=== PATIENT | male | born 1955 | race Caucasian/White ===

== ENCOUNTER 2021-05-22 11:01 | Outpatient (REF) | payer BC, SELFPAY ==
[2021-05-22 14:09] LABS: Appearance Urine CLEAR; Color Urine YELLOW; Glucose Urine UA NEG (NEG); Leukocyte Esterase Urine NEG (NEG); Nitrite Urine NEG (NEG); UACC Culture Trigger NO; Urine Blood TRACE (NEG); Urine Ketones NEG (NEG); Urine Protein NEG (NEG-TRACE)
[2021-05-22 14:26] LABS: Alanine Aminotransferase 17 U/L (0-40); Albumin Level 4.4 g/dL (3.5-5.0); Alkaline Phosphatase 50 U/L (39-117); Anion Gap 16 (12-20); Aspartate Amino Transferase 23 U/L (5-37); Bilirubin Total 0.9 mg/dL (0.0-1.0); Blood Urea Nitrogen 14 mg/dL (9-16); Calcium 9.5 mg/dL (8.4-10.2); Carbon Dioxide 23 mmol/L (22-29); Chloride 105 mmol/L (96-108); Cholesterol 229 mg/dL; Estimated Glomerular Filt Rate > 60; Glucose Fasting 103 mg/dL (60-99); HDL Cholesterol 49 mg/dL; LDL Cholesterol Calculated 161 mg/dl; Potassium 5.1 mmol/L (3.3-5.1); Sodium 139 mmol/L (135-145); Total Protein 6.9 g/dL (6.5-8.0); Triglycerides 96 mg/dL
[2021-05-22 14:27] LABS: RBC Urine 0-2 /HPF (0); WBC Urine 0 /HPF (0-4)
[2021-05-22 14:42] LABS: TSH reflex Free T4 2.73 uIU/mL (0.32-4.0)
[2021-05-22 15:13] LABS: Prostate Specific Antigen Scr 1.25 ng/mL (<0.05-4.0)
== END 2021-05-22 11:02 | disposition home or self-care (01) ==
LOC: HO.HMGCLDS 11:01
PROVIDERS: PCP Nurse Practitioner Family; Visit Provider Nurse Practitioner Family
DX: Z00.00 Encounter for general adult medical examination without abnormal findings (principal); Z12.5 Encounter for screening for malignant neoplasm of prostate
CPT/HCPCS: 36415; 80053; 80061; 81001; 81003; 84153; 84443

== ENCOUNTER 2021-05-24 10:57 | Outpatient (REF) | payer BC, SELFPAY ==
[2021-05-24 14:02] LABS: Urine Cytology See Pathology rpt
[2021-05-24 14:13] LABS: Appearance Urine CLEAR; Color Urine STRAW; Glucose Urine UA NEG (NEG); Leukocyte Esterase Urine NEG (NEG); Nitrite Urine NEG (NEG); Specific Gravity - Urine <= 1.005 (1.005-1.025); Urine Blood NEG (NEG); Urine Ketones NEG (NEG); Urine Protein NEG (NEG-TRACE)
[2021-05-24 14:23] LABS: RBC Urine 0-2 /HPF (0); WBC Urine 0 /HPF (0-4)
[2021-05-24 14:24] LABS: Squamous Epithelial Cell Urine TRACE /LPF
== END 2021-05-24 10:58 | disposition home or self-care (01) ==
LOC: HO.HMGCLDS 10:57
PROVIDERS: PCP Nurse Practitioner Family; Visit Provider Nurse Practitioner Family
DX: Z00.00 Encounter for general adult medical examination without abnormal findings (principal); R31.29 Other microscopic hematuria
CPT/HCPCS: 81003; 87086; 88112

== ENCOUNTER 2021-10-14 10:21 | Day surgery (SDC) | payer BC, SELFPAY ==
[2021-09-17 13:30] VITALS: BMI 23.3
--- NOTE | 2021-10-11 10:41 | P.CONAN_ITS ---
Documented by User: Batool Velazquez NP 10/11/21 10:42 HPI - Anesthesia Eval Consult details Narrative: 65yo M for Colonoscopy [facility] Active Problems Active Problems: All Active Problems (Updated 05/22/21 @ 18:07 by Jeremie Ivey [facility]) Screening for colon cancer (Acute) Skin abnormalities (Acute) Physical exam (Acute) Screening PSA (prostate specific antigen) (Acute) Microscopic hematuria (Acute) Dyslipidemia (Acute) Past Medical History Medical History (Updated 05/22/21 @ 18:07 by Jeremie Ivey [facility]) Anxiety Surgical History Surgical History (Updated 09/16/21 @ 15:42 by Teri Wright RN) H/O arthroscopic knee surgery H/O colonoscopy H/O left inguinal hernia repair Social History Social History Housing: House Patient Tobacco Use Status: Never used Tobacco Second Hand Smoke Exposure: No Use of substances other than those prescribed or required for medical reasons: No Advance Directives: No Advance Directives Information Provided: Yes Advance Directives on File: No service: No Current occupational status: employed Current occupation: [employer] Current occupational exposures/hazards: No Meds Allergies Allergy/AdvReac Type Severity Reaction Status Date / Time penicillin V Allergy Intermediate Rash Verified 09/16/21 14:12 erythromycin base Allergy Unknown Unknown Verified 09/17/21 13:29 Home Medications Medication Instructions Recorded Confirmed Last Taken Type No Known Home Meds 05/22/21 09/17/21 Unknown History Exam Exam Date and Time: October 11, 2021 1041 Height,Weight and Vital Signs: Height 5 ft 11 in Weight 75.75 kg Pertinent Lab Results Pertinent Lab Results: Laboratory Tests 05/22/21 11:01 Sodium 139 Potassium 5.1 Chloride 105 Carbon Dioxide 23 BUN 14 Creatinine 0.96 Assessment and Plan Assessment Anesthesia Assessment: Chart Reviewed Documented by User: Shira Del Cid MD 10/14/21 11:12 [facility] Past Medical History Medical History (Updated 05/22/21 @ 18:07 by Jeremie Ivey [facility]) Anxiety Family History Family history of problems with anesthesia: No Surgical History Surgical History (Updated 09/16/21 @ 15:42 by Teri Wright RN) H/O arthroscopic knee surgery H/O colonoscopy H/O left inguinal hernia repair History of Problems with Anesthesia: No Social History Social History Housing: House Patient Tobacco Use Status: Never used Tobacco Second Hand Smoke Exposure: No Use of substances other than those prescribed or required for medical reasons: No Advance Directives: No Advance Directives Information Provided: Yes Advance Directives on File: No service: No Current occupational status: employed Current occupation: [employer] Current occupational exposures/hazards: No Meds Allergies Allergy/AdvReac Type Severity Reaction Status Date / Time penicillin V Allergy Intermediate Rash Verified 09/16/21 14:12 erythromycin base Allergy Unknown Unknown Verified 09/17/21 13:29 Home Medications Medication Instructions Recorded Confirmed Last Taken Type No Known Home Meds 05/22/21 09/17/21 Unknown History Exam Airway Mallampati Class: II (Multiple caps laterals) TM Dist: >3cm Neck ROM: Full Heart: rrr Lungs: cta Assessment and Plan Assessment Anesthesia Assessment: Anesthesia Plan Discussed and Chart Reviewed Final Anesthetic Review Family History of Problems with Anesthesia: No History of Problems with Anesthesia: No NPO: Yes ASA Class: II Final Preanesthetic Review: No Changes in Pt Med Stat, Meds/Allgs Chart Reviewed and Consent Obtained/Reviewed Patient Risk: Intermediate Procedure Risk: Intermediate Anesthetic Plan Anesthetic Plan: MAC: Disposition: Standard PACU
[2021-10-14 11:09] VITALS: BP 146/84; PULSE 78; RESP 16; TEMP 36.4; O2SAT 100
[2021-10-14] MEDS: Lactated Ringers 1,000 ML 100 ML IVCONT (11:22)
--- NOTE | 2021-10-14 13:01 | PM.OP ---
Brief Operative Note Date of Service: 10/14/21 Pre-op diagnosis: Screening Post-op diagnosis: other (Colon polyps) Procedure: Colonoscopy to the cecum and TI with bx/removal of polyps Surgeon: Dany Trejo Anesthesia: MAC Was an Audio Visual Specialist used for this Procedure?: No Estimated blood loss (mL): 2.0 Pathology: other (A, Polyp at 30cm B. Polyp at 20cm) Condition: stable Disposition: PACU
[2021-10-14 13:04] VITALS: BP 98/49; PULSE 61; RESP 16; TEMP 36.2; O2SAT 99
[2021-10-14 13:20] VITALS: BP 110/67; PULSE 50; RESP 18; TEMP 36.2; O2SAT 100
--- NOTE | 2021-10-14 22:34 | OP_ITS ---
SURGEON: Dany Trejo MD INDICATIONS: The patient presents for evaluation of personal history of tubular adenomas of the colon and family history of colon cancer, colorectal cancer screening. Full consent has been obtained from him for this, including risks of bleeding and perforation. PREOPERATIVE DIAGNOSIS: POSTOPERATIVE DIAGNOSIS: PROCEDURE PERFORMED: Colonoscopy to cecum and terminal ileum with biopsy and removal of polyps. ESTIMATED BLOOD LOSS: COMPLICATIONS: ANESTHESIA: Preoperative medication used, monitored anesthesia care. ASSISTANTS: SPECIMENS: PREOPERATIVE DIAGNOSES: Personal history of tubular adenomas of the colon, colorectal cancer screening, family history of colon cancer. POSTOPERATIVE DIAGNOSES: Personal history of tubular adenomas of the colon, colorectal cancer screening, family history of colon cancer, small colon polyps, diverticulosis, and internal hemorrhoids. DESCRIPTION OF PROCEDURE: The patient was placed in the left lateral decubitus position. The digital rectal exam revealed no abnormalities. The [employer] video pediatric colonoscope was entered into the rectum and advanced easily to the cecum. Once in the cecum, I did identify normal-appearing cecal pouch with appendiceal orifice and a normal-appearing ileocecal valve. The terminal ileum was cannulated and appeared normal. The scope was withdrawn back in the colon. The entire cecum and ileocecal valve appeared normal. The scope was slowly withdrawn assessing all mucosal surfaces carefully. Preparation was excellent. At 20 cm and at 30 cm were flat approximately 3 or 4 mm polyps, which were each biopsied and completely removed with cold biopsy forceps. I did not visualize any other polyps, colitis, or angiodysplasia. There was a mild amount of sigmoid diverticulosis. In the rectum, the scope was retroflexed visualizing small internal hemorrhoids, but no other pathology. The rectal mucosa appeared normal. The scope was straightened and withdrawn from the patient. He tolerated the procedure well and was returned to the recovery area in stable condition. IMPRESSION: 1. Small colon polyps, status post biopsy removal. 2. Diverticulosis. 3. Internal hemorrhoids. PLAN: The results of biopsies will be checked. I would recommend a repeat colonoscopy in 5 years for further screening purposes. MD CESAR Thomason/DONNY / [id number]
== END 2021-10-14 14:00 | disposition home or self-care (01) ==
PROVIDERS: PCP Nurse Practitioner Family; Visit Provider Internal Medicine
PROC: 0DJD8ZZ Inspection of Lower Intestinal Tract, Via Natural or Artificial Opening Endoscopic (ICD-10-PCS; CPT 45378; principal; 2021-10-14 11:30)
DX: Z12.11 Encounter for screening for malignant neoplasm of colon (principal); Z86.010 Personal history of colon polyps; Z80.0 Family history of malignant neoplasm of digestive organs; K63.5 Polyp of colon; K57.30 Diverticulosis of large intestine without perforation or abscess without bleeding; K64.8 Other hemorrhoids
CPT/HCPCS: 45380; 88305

== ENCOUNTER 2021-11-18 13:44 | Outpatient (REF) | payer BC, SELFPAY ==
[2021-11-18 16:27] LABS: Urine Cytology See Pathology rpt
[2021-11-18 16:30] LABS: Appearance Urine CLEAR; Color Urine YELLOW; Glucose Urine UA NEG (NEG); Leukocyte Esterase Urine NEG (NEG); Nitrite Urine NEG (NEG); Specific Gravity - Urine <= 1.005 (1.005-1.025); Urine Blood TRACE (NEG); Urine Ketones NEG (NEG); Urine Protein NEG (NEG-TRACE)
[2021-11-18 16:36] LABS: Bacteria Urine TRACE /LPF; RBC Urine 0-2 /HPF (0); Squamous Epithelial Cell Urine TRACE /LPF; WBC Urine 0 /HPF (0-4)
[2021-11-18 16:51] LABS: Cholesterol 211 mg/dL; HDL Cholesterol 42 mg/dL; LDL Cholesterol Calculated 149 mg/dl; Triglycerides 101 mg/dL
== END 2021-11-18 13:45 | disposition home or self-care (01) ==
LOC: HO.HMGCLDS 13:44
PROVIDERS: PCP Nurse Practitioner Family; Visit Provider Nurse Practitioner Family
DX: E78.5 Hyperlipidemia, unspecified (principal)
CPT/HCPCS: 36415; 80061; 81001; 88112

== ENCOUNTER 2023-02-23 09:01 | Outpatient (REF) | payer BC, SELFPAY ==
[2023-02-23 12:18] LABS: Anion Gap 13 (12-20); Blood Urea Nitrogen 11 mg/dL (9-16); Calcium 9.4 mg/dL (8.4-10.2); Carbon Dioxide 27 mmol/L (22-29); Chloride 103 mmol/L (96-108); Estimated Glomerular Filt Rate > 60; Glucose Random 97 mg/dL (60-115); Potassium 3.7 mmol/L (3.3-5.1); Sodium 139 mmol/L (135-145)
== END 2023-02-23 09:02 | disposition home or self-care (01) ==
LOC: HO.HMGCLDS 09:01
PROVIDERS: PCP Nurse Practitioner Family; Visit Provider Orthopaedic Surgery
DX: Z01.818 Encounter for other preprocedural examination (principal)
CPT/HCPCS: 36415; 80048

== ENCOUNTER 2023-05-20 10:17 | Outpatient (AMB) | payer MEDICARE, SELFPAY ==
--- NOTE | 2023-05-20 10:28 | MHC.PC.OV ---
Vital Signs 05/20/23 10:29 Height 5 ft 11 in Weight 166 lb 2 oz BMI 23.2 BP 122/74 Blood Pressure Location Rt brachial Position Sitting Pulse 75 Pulse Source Pulse Oximeter Pulse Oximetry (%) 94 Oxygen Delivery Method Room Air Intake Visit Reasons: Lymphoma Allergies penicillin V Allergy (Intermediate, Verified 05/20/23 12:23) Rash erythromycin base Allergy (Unknown, Verified 05/20/23 12:23) Unknown Medication List - Last Reconciled 05/20/23 by ELIAS Dykes acalabrutinib 100 mg PO Q12H venetoclax 400 mg PO DAILY Tobacco use date assessed: 05/20/23 Fall risk assessment: No Falls in past year Last assessed Fall Risk: 05/20/23 Dental Screening Dental Screen Date: 05/20/23 Did you have a dental visit in the last 12 months?: Yes Did you have a dental problem in the last 6 months where you did not have access to dental care?: No Was dental information given to patient?: Patient has dentist HPI Lymphoma HPI Details Pt's fasting blood sugar was elevated. Will order labs. Denies polyuria, polydipsia, and neuropathy. Dyslipidemia: Will order labs. Pt is following up with [facility] due to lymphoma, diagnosed in July 2022. He reports doing well overall. [facility] Medical History Anxiety Surgical History H/O arthroscopic knee surgery H/O colonoscopy H/O left inguinal hernia repair History of total right hip arthroplasty Social History Housing: House Patient Tobacco Use Status: Never used Tobacco e-Cigarette/Vaping Use: Never Used Second Hand Smoke Exposure: No service: No Current occupational status: employed Current occupation: [employer] Current occupational exposures/hazards: No Cognitive needs: No Hearing needs: No Vision needs: No Questionnaire Thrive Questionnaire Date Thrive assessed: 11/20/21 AUDIT C Alcohol Use Questionnaire (AUDIT-C) 1. How often do you have a drink containing alcohol?: Monthly or less 2. How many drinks containing alcohol do you have on a typical day when you are drinking?: 1 or 2 3. How often do you have six or more drinks on one occasion?: Never Total Score: 1 RUEL-7 AMB Questionnaire RUEL-7 Date RUEL - 7 assessed: 11/20/21 Feeling nervous, anxious, or on edge: 0 = Not at all Worrying too much about different things: 0 = Not at all Trouble relaxin = Not at all Being so restless that it is hard to sit still: 0 = Not at all Becoming easily annoyed or irritable: 0 = Not at all Feeling afraid as if something awful might happen: 0 = Not at all Source: Developed by Drs. Dany Mayberry, Bhavna Rowe, Syed Hagen and colleagues, with an educational genna from [employer]. Review of Systems Const Reports as per HPI Physical exam (Primary Care) Vital Signs: Last Vital Signs Pulse 75 05/20/23 10:29 BP 122/74 05/20/23 10:29 Pulse Ox 94 05/20/23 10:29 Oxygen Delivery Method Room Air 05/20/23 10:29 BMI result Body Mass Index 23.2 Tobacco/Smoking Status: Tobacco use Status Tobacco use date assessed 05/20/23 05/20/23 10:32 Patient Tobacco Use Status Never used Tobacco 05/20/23 10:32 e-Cigarette/Vaping Use Never Used 05/20/23 10:32 Thrive Assessment: Date of Thrive Assessment Date Thrive assessed 11/20/21 05/20/23 10:32 Const General: cooperative Orientation/consciousness: patient oriented x3 Resp Effort & Inspection: normal respiratory effort Auscultation: clear to auscultation bilaterally Cardio Rate: regular rate Rhythm: regular rhythm Heart sounds: S1 normal heart sound present and S2 normal heart sound present Neuro General: patient oriented x3 Psych Appearance: grossly normal Mental Status: mental status grossly normal Speech and movement: Normal speech and movement present Affect: normal affect Attitude: cooperative Thought process: Normal thought process present Thought content: Normal thought content present Insight: Good insight present (Psych) Judgement: Good judgement present (Psych) Assessment and Plan Assessment & Plan (1) Screening PSA (prostate specific antigen): Code(s): Z12.5 - Encounter for screening for malignant neoplasm of prostate Plan: PSA ordered (2) Elevated fasting blood sugar: Code(s): R73.01 - Impaired fasting glucose Plan: Labs ordered (3) Lymphoma: Code(s): C85.90 - Non-Hodgkin lymphoma, unspecified, unspecified site Plan: Following up with [facility] (4) Dyslipidemia: Code(s): E78.5 - Hyperlipidemia, unspecified Plan: Labs ordered Plan The patient agreed to the use of a medical record coder for this encounter. Scribed for Jeremie Ivey LOFTSMAN/WOMAN- by Yaquelin Blanchard medical record coder, on 05/20/2023 at 10:55 EST. Orders: Orders Prostate Specific Antigen Scr Today Z12.5 - Encounter for screening for malignant neoplasm of prostate Hemoglobin A1c Today R73.01 - Impaired fasting glucose Comprehensive Met. Panel Today C85.90 - Non-Hodgkin lymphoma, unspecified, unspecified site Complete Blood Count Auto Diff Today C85.90 - Non-Hodgkin lymphoma, unspecified, unspecified site Lipid Panel Today E78.5 - Hyperlipidemia, unspecified Coding Level of Care Code Est Pt Level 3 (57001) Diagnoses Screening PSA (prostate specific antigen) Z12.5 Elevated fasting blood sugar R73.01 Lymphoma C85.90 Dyslipidemia E78.5
[2023-05-20 10:29] VITALS: BP 122/74; PULSE 75; O2SAT 94; BMI 23.2
== END 2023-05-20 14:15 | disposition home or self-care (01) ==
PROVIDERS: PCP Nurse Practitioner Family; Visit Provider Nurse Practitioner Family
DX: Z12.5 Encounter for screening for malignant neoplasm of prostate (principal); R73.01 Impaired fasting glucose; C85.90 Non-Hodgkin lymphoma, unspecified, unspecified site; E78.5 Hyperlipidemia, unspecified
CPT/HCPCS: 99213

== ENCOUNTER 2023-05-20 11:16 | Outpatient (REF) | payer MEDICARE, SELFPAY ==
[2023-05-20 13:17] LABS: MANUAL DIFF FLAG NO
[2023-05-20 13:31] LABS: Basophils Percent Auto 0.2 % (0-2); Hemoglobin 14.3 g/dl (14.0-18.0); Lymphocytes Absolute Auto 1.1 X10*3/uL (1.2-4.9); Lymphocytes Percent Auto 26.2 % (20-40); Mean Corpuscular HGB Conc 33.3 g/dl (31.0-36.0); Mean Corpuscular Hemoglobin 31.6 pg (27.0-33.0); Mean Corpuscular Volume 95.1 fL (80.0-98.0); Mean Platelet Volume 11.1 fL (9.4-12.4); Monocytes Absolute Auto 0.5 X10*3/uL (0.1-1.2); Monocytes Percent Auto 12.7 % (2-11); Neutrophils Absolute Auto 2.5 x10*3/uL (2.0-8.3); Neutrophils Percent Auto 60.9 % (45-73); Platelet Count 197 X10*3/uL (160-400); Red Blood Count 4.52 X10*6/uL (4.60-5.80); Red Cell Distribution Width 12.3 % (11.0-16.0); White Blood Count 4.2 X10*3/uL (4.8-10.8)
[2023-05-20 13:33] LABS: Estimated Average Glucose 82 mg/dL; Hemoglobin A1c % 4.5 % (<6.0)
[2023-05-20 13:50] LABS: Alanine Aminotransferase 10 U/L (0-40); Albumin Level 4.3 g/dL (3.5-5.0); Alkaline Phosphatase 98 U/L (39-117); Anion Gap 12 (12-20); Aspartate Amino Transferase 21 U/L (5-37); Bilirubin Total 0.8 mg/dL (0.0-1.0); Blood Urea Nitrogen 16 mg/dL (9-16); Calcium 9.4 mg/dL (8.4-10.2); Carbon Dioxide 26 mmol/L (22-29); Chloride 107 mmol/L (96-108); Cholesterol 209 mg/dL (<200); Estimated Glomerular Filt Rate > 60; Glucose Random 101 mg/dL (60-115); HDL Cholesterol 54 mg/dL (>40); LDL Cholesterol Calculated 142 mg/dL (<100); Potassium 4.2 mmol/L (3.3-5.1); Sodium 141 mmol/L (135-145); Total Protein 6.9 g/dL (6.5-8.0); Triglycerides 65 mg/dL (<150)
[2023-05-20 14:02] LABS: Prostate Specific Antigen Scr 1.32 ng/mL (<0.05-4.0)
== END 2023-05-20 11:17 | disposition home or self-care (01) ==
LOC: HO.HMGCLDS 11:16
PROVIDERS: PCP Nurse Practitioner Family; Visit Provider Nurse Practitioner Family
DX: Z12.5 Encounter for screening for malignant neoplasm of prostate (principal); R73.01 Impaired fasting glucose; C85.90 Non-Hodgkin lymphoma, unspecified, unspecified site; E78.5 Hyperlipidemia, unspecified
CPT/HCPCS: 36415; 80053; 80061; 83036; 84153; 85025

== ENCOUNTER 2023-09-21 09:39 | Outpatient (AMB) | payer MEDICARE, SELFPAY ==
--- NOTE | 2023-09-21 09:48 | MHC.PC.OV ---
Vital Signs 09/21/23 09:50 Height 5 ft 11 in Weight 164 lb BMI 22.9 BP 130/82 Blood Pressure Location Lt brachial Position Sitting Pulse 59 Pulse Source Pulse Oximeter Pulse Oximetry (%) 99 Oxygen Delivery Method Room Air Intake Visit Reasons: 4 Month follow up Intake Note: Patient here for cholesterol follow up. Allergies penicillin V Allergy (Intermediate, Verified 09/21/23 09:51) Rash erythromycin base Allergy (Unknown, Verified 09/21/23 09:51) Unknown Medication List - Last Reconciled 09/21/23 by ELIAS Dykes acalabrutinib 100 mg PO Q12H venetoclax 400 mg PO DAILY Tobacco use date assessed: 09/21/23 Fall risk assessment: No Falls in past year Last assessed Fall Risk: 09/21/23 Dental Screening Dental Screen Date: 09/21/23 Did you have a dental visit in the last 12 months?: Yes Did you have a dental problem in the last 6 months where you did not have access to dental care?: No Was dental information given to patient?: Patient has dentist HPI 4 Month follow up HPI Details Pt reports noticing a lump near his left nipple approximately 1 month ago. He reports tenderness to the area as well. Will order US. Hx of SLL. Pt reports that he plans to see his oncologist in 2 days. Denies any fevers, chills, N/V, drainage. [facility] Medical History (Updated 09/21/23 @ 10:14 by ELIAS Dykes) Small lymphocytic lymphoma Anxiety Surgical History History of total right hip arthroplasty H/O colonoscopy H/O arthroscopic knee surgery H/O left inguinal hernia repair Social History Housing: House Patient Tobacco Use Status: Never used Tobacco e-Cigarette/Vaping Use: Never Used Second Hand Smoke Exposure: No service: No Current occupational status: employed Current occupation: [employer] Current occupational exposures/hazards: No Cognitive needs: No Hearing needs: No Vision needs: No Questionnaire Thrive Questionnaire Date Thrive assessed: 11/20/21 AUDIT C Alcohol Use Questionnaire (AUDIT-C) 1. How often do you have a drink containing alcohol?: 2-4 times a month 2. How many drinks containing alcohol do you have on a typical day when you are drinking?: 1 or 2 3. How often do you have six or more drinks on one occasion?: Never Total Score: 2 Score Reviewed/Action Taken: No RUEL-7 AMB Questionnaire RUEL-7 Date RUEL - 7 assessed: 11/20/21 Feeling nervous, anxious, or on edge: 0 = Not at all Not being able to stop or control worryin = Not at all Worrying too much about different things: 0 = Not at all Trouble relaxin = Not at all Being so restless that it is hard to sit still: 0 = Not at all Becoming easily annoyed or irritable: 0 = Not at all Feeling afraid as if something awful might happen: 0 = Not at all Total RUEL-7 score (0-4 normal; 5-9 mild; 10-14 moderate; 15-21 severe): 0 Source: Developed by Drs. Dany Mayberry, Bhavna Rowe, Syed Hagen and colleagues, with an educational genna from [employer]. Review of Systems Const Reports as per HPI Physical exam (Primary Care) Vital Signs: Last Vital Signs Pulse 59 09/21/23 09:50 BP 130/82 09/21/23 09:50 Pulse Ox 99 09/21/23 09:50 Oxygen Delivery Method Room Air 09/21/23 09:50 BMI result Body Mass Index 22.9 Tobacco/Smoking Status: Tobacco use Status Tobacco use date assessed 09/21/23 09/21/23 09:53 Patient Tobacco Use Status Never used Tobacco 09/21/23 09:53 e-Cigarette/Vaping Use Never Used 09/21/23 09:53 Thrive Assessment: Date of Thrive Assessment Date Thrive assessed 11/20/21 09/21/23 09:53 Const General: cooperative Orientation/consciousness: patient oriented x3 Resp Effort & Inspection: normal respiratory effort Auscultation: clear to auscultation bilaterally Cardio Rate: regular rate Rhythm: regular rhythm Heart sounds: S1 normal heart sound present and S2 normal heart sound present Neuro General: patient oriented x3 Extrem Other: retroareolar ? node, palpable, tender with touch, slightly movable. Psych Appearance: grossly normal Mental Status: mental status grossly normal Speech and movement: Normal speech and movement present Affect: normal affect Attitude: cooperative Thought process: Normal thought process present Thought content: Normal thought content present Insight: Good insight present (Psych) Judgement: Good judgement present (Psych) Assessment and Plan Assessment & Plan (1) Palpable lymph node: Code(s): R59.9 - Enlarged lymph nodes, unspecified Plan: US ordered (2) Lymphoma: Code(s): C85.90 - Non-Hodgkin lymphoma, unspecified, unspecified site Plan: Labs ordered (3) Vitamin D deficiency: Code(s): E55.9 - Vitamin D deficiency, unspecified Plan: Labs ordered Plan The patient agreed to the use of a auditor medical claims for this encounter. Scribed for Jeremie Ivey, [employer]IST-BC by Yaquelin Blanchard auditor medical claims, on 09/21/2023 at 10:05 EST. Orders: Orders US breast LT limited Today R59.9 - Enlarged lymph nodes, unspecified Complete Blood Count Auto Diff Today C85.90 - Non-Hodgkin lymphoma, unspecified, unspecified site, R59.9 - Enlarged lymph nodes, unspecified Comprehensive Met. Panel Today C85.90 - Non-Hodgkin lymphoma, unspecified, unspecified site, R59.9 - Enlarged lymph nodes, unspecified Magnesium Today C85.90 - Non-Hodgkin lymphoma, unspecified, unspecified site, R59.9 - Enlarged lymph nodes, unspecified TSH reflex Free T4 Today C85.90 - Non-Hodgkin lymphoma, unspecified, unspecified site, R59.9 - Enlarged lymph nodes, unspecified Vitamin D 25-OH Total Today E55.9 - Vitamin D deficiency, unspecified UA CC w/rflx Micro + Cult Today C85.90 - Non-Hodgkin lymphoma, unspecified, unspecified site, R59.9 - Enlarged lymph nodes, unspecified Coding Level of Care Code Est Pt Level 3 (12927) Diagnoses Palpable lymph node R59.9 Lymphoma C85.90 Vitamin D deficiency E55.9
[2023-09-21 09:50] VITALS: BP 130/82; PULSE 59; O2SAT 99; BMI 22.9
== END 2023-09-21 11:14 | disposition home or self-care (01) ==
PROVIDERS: PCP Nurse Practitioner Family; Visit Provider Nurse Practitioner Family
DX: R59.9 Enlarged lymph nodes, unspecified (principal); C85.90 Non-Hodgkin lymphoma, unspecified, unspecified site; E55.9 Vitamin D deficiency, unspecified
CPT/HCPCS: 99213

== ENCOUNTER 2023-09-21 10:28 | Outpatient (REF) | payer MEDICARE, SELFPAY | END 2023-09-21 10:29 | disposition home or self-care (01) | LOC: HO.HMGCLDS 10:28 | PROVIDERS: PCP Nurse Practitioner Family; Visit Provider Nurse Practitioner Family | DX: R59.9 Enlarged lymph nodes, unspecified (principal); C85.90 Non-Hodgkin lymphoma, unspecified, unspecified site; E55.9 Vitamin D deficiency, unspecified | CPT/HCPCS: 36415; 80053; 81003; 82306; 83735; 84443; 85025 ==

== ENCOUNTER 2023-10-09 09:17 | Outpatient (REF) | payer MEDICARE, SELFPAY ==
--- NOTE | ~2023-10-09 | US_ITS ---
EXAMINATION: US DIAGNOSTIC ULTRASOUND BREAST, LEFT CLINICAL INFORMATION: Retroareolar left breast palpable abnormality x2 months. No injury.. COMPARISON: None available. TECHNIQUE: Ultrasound of the left breast is performed with real-time nix scale imaging and color Doppler. FINDINGS: There is moderate normal breast tissue development in the retroareolar region, consistent with male gynecomastia. There is no solid mass, architectural abnormality, duct ectasia, or edema in the soft tissue planes. There is no cystic abnormality. Findings are benign. Results are discussed with the patient at time of visit. US/US breast LT limited mamm only IMPRESSION: Benign male gynecomastia left breast. No suspicious findings. Recommend clinical management. ASSESSMENT: BI-RADS 2 - Benign Findings RECOMMENDATION: Clinical management. This patient's information was entered into a reminder system with a target due date for their next mammogram.
== END 2023-10-09 09:18 | disposition home or self-care (01) ==
LOC: HO.MAMMO 09:17
PROVIDERS: PCP Nurse Practitioner Family; Visit Provider Nurse Practitioner Family
DX: R59.9 Enlarged lymph nodes, unspecified (principal)
CPT/HCPCS: 76642

== ENCOUNTER → 2023-10-09 09:30 | Outpatient (BNV) | payer MEDICARE, SELFPAY | PROVIDERS: PCP Nurse Practitioner Family; Visit Provider Radiology Diagnostic Radiology | DX: N62 Hypertrophy of breast (principal) | CPT/HCPCS: 76642 ==

== ENCOUNTER 2023-12-28 09:56 | Outpatient (AMB) | payer MEDICARE, SELFPAY ==
--- NOTE | 2023-12-28 09:59 | A.OFFPC_ITS ---
Vital Signs 12/28/23 10:02 Height 5 ft 11 in Weight 166 lb BMI 23.1 BP 126/78 Blood Pressure Location Rt brachial Position Sitting Pulse 58 Pulse Source Pulse Oximeter Pulse Oximetry (%) 98 Oxygen Delivery Method Room Air Intake Visit Reasons: 3 month follow up Intake Note: Patient here for follow up. Allergies penicillin V Allergy (Intermediate, Verified 12/28/23 11:14) Rash erythromycin base Allergy (Unknown, Verified 12/28/23 11:14) Unknown Medication List - Last Reconciled 12/28/23 by SARAH Dykes-ANNE acalabrutinib 100 mg PO Q12H venetoclax 400 mg PO DAILY Tobacco use date assessed: 09/21/23 Fall risk assessment: No Falls in past year Last assessed Fall Risk: 12/28/23 Dental Screening Dental Screen Date: 09/21/23 HPI 3 month follow up HPI Details Pt has a hx of small lymphocytic lymphoma. He is following up with oncology. Pt reports doing well overall. He is going for an updated CT due to pulmonary nodules/nodes being noted on previous imaging. Denies fever, chills, chest pain, and shortness of breath. Pt has been physically active as well [facility] Medical History (Updated 12/28/23 @ 10:17 by ELIAS Dykes) Gynecomastia, male Small lymphocytic lymphoma Anxiety Surgical History History of total right hip arthroplasty H/O colonoscopy H/O arthroscopic knee surgery H/O left inguinal hernia repair Social History Housing: House Patient Tobacco Use Status: Never used Tobacco e-Cigarette/Vaping Use: Never Used Second Hand Smoke Exposure: No service: No Current occupational status: employed Current occupation: [employer] Current occupational exposures/hazards: No Cognitive needs: No Hearing needs: No Vision needs: No Questionnaire Thrive Questionnaire Date Thrive assessed: 11/20/21 RUEL-7 AMB Questionnaire RUEL-7 Date RUEL - 7 assessed: 11/20/21 Source: Developed by Drs. Dany Mayberry, Bhavna Rowe, Syed Hagen and colleagues, with an educational genna from [employer] Review of Systems Const Reports as per HPI Physical exam (Primary Care) Vital Signs: Last Vital Signs Pulse 58 12/28/23 10:02 BP 126/78 12/28/23 10:02 Pulse Ox 98 12/28/23 10:02 Oxygen Delivery Method Room Air 12/28/23 10:02 BMI result Body Mass Index 23.1 Tobacco/Smoking Status: Tobacco use Status Tobacco use date assessed 09/21/23 12/28/23 09:59 Patient Tobacco Use Status Never used Tobacco 12/28/23 09:59 e-Cigarette/Vaping Use Never Used 12/28/23 09:59 Thrive Assessment: Date of Thrive Assessment Date Thrive assessed 11/20/21 12/28/23 09:59 Const General: cooperative Orientation/consciousness: patient oriented x3 Resp Effort & Inspection: normal respiratory effort Auscultation: clear to auscultation bilaterally Cardio Rate: regular rate Rhythm: regular rhythm Heart sounds: S1 normal heart sound present and S2 normal heart sound present Neuro General: patient oriented x3 Extrem Right lower extremity: no edema Left lower extremity: no edema Psych Appearance: grossly normal Mental Status: mental status grossly normal Speech and movement: Normal speech and movement present Affect: normal affect Attitude: cooperative Thought process: Normal thought process present Thought content: Normal thought content present Insight: Good insight present (Psych) Judgement: Good judgement present (Psych) Assessment and Plan Assessment & Plan (1) Small lymphocytic lymphoma: Comment: 2021 Code(s): C83.00 - Small cell B-cell lymphoma, unspecified site Plan: Following up with oncology, repeat CT scan ordered through oncology team Plan The patient agreed to the use of a medical services assistant for this encounter. Scribed for ELIAS Palacio by chad Cannon scribe, on 12/28/2023 at 10:15 EST. Coding Level of Care Code Est Pt Level 3 (65319) Diagnoses Small lymphocytic lymphoma C83.00
[2023-12-28 10:02] VITALS: BP 126/78; PULSE 58; O2SAT 98; BMI 23.1
== END 2023-12-28 10:44 | disposition home or self-care (01) ==
PROVIDERS: PCP Nurse Practitioner Family; Visit Provider Nurse Practitioner Family
DX: C83.00 Small cell B-cell lymphoma, unspecified site (principal)
CPT/HCPCS: 99213

== ENCOUNTER 2024-04-18 11:22 | Outpatient (AMB) | payer MEDICARE, SELFPAY ==
--- NOTE | 2024-04-18 11:27 | MHC.PC.OV ---
Vital Signs 04/18/24 11:29 Height 5 ft 11 in Weight 162 lb BMI 22.6 BP 134/80 Blood Pressure Location Rt brachial Position Sitting Pulse 64 Pulse Source Pulse Oximeter Pulse Oximetry (%) 98 Oxygen Delivery Method Room Air Intake Visit Reasons: 3 month follow up Intake Note: Patient here for lymphoma f/u Allergies penicillin V Allergy (Intermediate, Verified 04/18/24 11:30) Rash erythromycin base Allergy (Unknown, Verified 04/18/24 11:30) Unknown Tobacco use date assessed: 09/21/23 Fall risk assessment: No Falls in past year Last assessed Fall Risk: 04/18/24 Dental Screening Dental Screen Date: 09/21/23 HPI 3 month follow up HPI Details Pt has a hx of small lymphocytic lymphoma. He is following up with oncology for this. He is tolerating chemo very well. Pt has very good energy and is working on a house with his son. Dyslipidemia: Pt would not like to start a statin. Will order labs. Denies chest pain, shortness of breath, and dizziness. [facility] Medical History (Updated 12/28/23 @ 10:17 by ELIAS Dykes) Gynecomastia, male Small lymphocytic lymphoma Anxiety Surgical History History of total right hip arthroplasty H/O colonoscopy H/O arthroscopic knee surgery H/O left inguinal hernia repair Social History Housing: House Patient Tobacco Use Status: Never used Tobacco e-Cigarette/Vaping Use: Never Used Second Hand Smoke Exposure: No service: No Current occupational status: employed Current occupation: [employer] Current occupational exposures/hazards: No Cognitive needs: No Hearing needs: No Vision needs: No Questionnaire PHQ-9 Over the last 2 weeks, how often have you been bothered by any of the following problems? 1. Little interest or pleasure in doing things: not at all 2. Feeling down, depressed, or hopeless: not at all 3. Trouble falling or staying asleep, or sleeping too much: not at all 4. Feeling tired or having little energy: not at all 5. Poor appetite or overeating: not at all 6. Feeling bad about yourself - or that you are a failure or have let yourself or your family down: not at all 7. Trouble concentrating on things, such as reading the newspaper or watching television: not at all 8. Moving or speaking so slowly that other people could have noticed. Or the opposite - being so fidgety or restless that you have been moving around a lot more than usual: not at all 9. Thoughts that you would be better off or of hurting yourself in some way: not at all Total score: 0 Depression Screening Interpretation: Negative Depression Screening Done: Yes 81711 - PHQ-9 Billing: Yes Source: Developed by Drs. Dany Mayberry, Bhavna Rowe, Syed Hagen and colleagues, with an educational genna from [employer]. Thrive Questionnaire Date Thrive assessed: 04/18/24 I am a: Patient What is your living situation today?: I have a steady place to live Within the past 12 months, did the food you bought not last and you didn't have the money to get more?: Never true Within the past 12 months, did you worry whether your food would run out before you got money to buy more?: Never true Do you have trouble paying for medicines?: No Do you have trouble getting transportation to medical appointments?: No Do you have trouble paying your heating and electricity bill?: No Do you have trouble taking care of your child, family member or friend?: No Do you have trouble with day-to-day activities such as bathing, preparing meals, shopping, managing finances, etc.?: No Are you currently unemployed and looking for a job?: No Are you interested in more education?: No Please select the resources that you would like help with: Housing/Chcf Currently or been in a relationship where the following occur: No concerns reported THRIVE Score: 0 AUDIT C Alcohol Use Questionnaire (AUDIT-C) 1. How often do you have a drink containing alcohol?: Never Total Score: 0 RUEL-7 AMB Questionnaire RUEL-7 Date RUEL - 7 assessed: 04/18/24 Feeling nervous, anxious, or on edge: 0 = Not at all Not being able to stop or control worryin = Not at all Worrying too much about different things: 0 = Not at all Trouble relaxin = Not at all Being so restless that it is hard to sit still: 0 = Not at all Becoming easily annoyed or irritable: 0 = Not at all Feeling afraid as if something awful might happen: 0 = Not at all Total RUEL-7 score (0-4 normal; 5-9 mild; 10-14 moderate; 15-21 severe): 0 Source: Developed by Drs. Dany Mayberry, Bhavna Rowe, Syed Hagen and colleagues, with an educational genna from [employer]. RUEL-7 Assessment Billing RUEL-7 Assessment Tool: RUEL-7 Assessment 13692 Review of Systems Const Reports as per HPI Physical exam (Primary Care) Vital Signs: Last Vital Signs Pulse 64 04/18/24 11:29 BP 134/80 04/18/24 11:29 Pulse Ox 98 04/18/24 11:29 Oxygen Delivery Method Room Air 04/18/24 11:29 BMI result Body Mass Index 22.6 Tobacco/Smoking Status: Tobacco use Status Tobacco use date assessed 09/21/23 04/18/24 11:28 Patient Tobacco Use Status Never used Tobacco 04/18/24 11:28 e-Cigarette/Vaping Use Never Used 04/18/24 11:28 PHQ-9: PHQ-9 Score PHQ-9: Total score 0 04/18/24 11:33 Depression Screening Interpretation: Negative Thrive Assessment: Date of Thrive Assessment Date Thrive assessed 04/18/24 04/18/24 11:33 Currently or been in a relationship where the following occur: No concerns reported Const General: cooperative Orientation/consciousness: patient oriented x3 Resp Effort & Inspection: normal respiratory effort Auscultation: clear to auscultation bilaterally Cardio Rate: regular rate Rhythm: regular rhythm Heart sounds: S1 normal heart sound present and S2 normal heart sound present Neuro General: patient oriented x3 Psych Appearance: grossly normal Mental Status: mental status grossly normal Speech and movement: Normal speech and movement present Affect: normal affect Attitude: cooperative Thought process: Normal thought process present Thought content: Normal thought content present Insight: Good insight present (Psych) Judgement: Good judgement present (Psych) Assessment and Plan Assessment & Plan (1) Dyslipidemia: Code(s): E78.5 - Hyperlipidemia, unspecified Plan: Labs ordered (2) Screening PSA (prostate specific antigen): Code(s): Z12.5 - Encounter for screening for malignant neoplasm of prostate (3) Small lymphocytic lymphoma: Comment: diag. 2021 Code(s): C83.00 - Small cell B-cell lymphoma, unspecified site Plan The patient agreed to the use of a bilingual medical receptionist for this encounter. Scribed for SARAH Palacio- by Yaquelin Blanchard bilingual medical receptionist, on 04/18/2024 at 11:45 EST. Orders: Orders TSH reflex Free T4 Today E78.5 - Hyperlipidemia, unspecified Lipid Panel Today E78.5 - Hyperlipidemia, unspecified Prostate Specific Antigen Scr Today Z12.5 - Encounter for screening for malignant neoplasm of prostate Complete Blood Count Auto Diff Today E78.5 - Hyperlipidemia, unspecified Comprehensive [place]. Panel Fast Today E78.5 - Hyperlipidemia, unspecified UA CC w/rflx Micro + Cult Today E78.5 - Hyperlipidemia, unspecified Coding Level of Care Code Est Pt Level 3 (09004) Diagnoses Dyslipidemia E78.5 Screening PSA (prostate specific antigen) Z12.5 Small lymphocytic lymphoma C83.00 Additional Codes RUEL-7 Assessment Billing - RUEL-7 Assessment Tool: RUEL-7 Assessment 42928 ([id number])
[2024-04-18 11:29] VITALS: BP 134/80; PULSE 64; O2SAT 98; BMI 22.6
== END 2024-04-18 12:54 | disposition home or self-care (01) ==
PROVIDERS: PCP Nurse Practitioner Family; Visit Provider Nurse Practitioner Family
DX: E78.5 Hyperlipidemia, unspecified (principal); Z12.5 Encounter for screening for malignant neoplasm of prostate; C83.00 Small cell B-cell lymphoma, unspecified site
CPT/HCPCS: 99213

== ENCOUNTER 2024-08-01 09:08 | Outpatient (REF) | payer MEDICARE, SELFPAY ==
[2024-08-01 13:17] LABS: MANUAL DIFF FLAG NO
[2024-08-01 13:26] LABS: Appearance Urine Clear; Color Urine Yellow; Glucose Urine UA Negative (Negative); Leukocyte Esterase Urine Negative (Negative); Nitrite Urine Negative (Negative); PH 5.5 (5.0-9.0); Urine Blood Negative (Negative); Urine Ketones 15 mg/dL (Negative); Urine Protein Negative (Neg-Trace)
[2024-08-01 13:32] LABS: Basophils Percent Auto 0.7 % (0-2); Hemoglobin 13.8 g/dl (14.0-18.0); Imm Gran Abs Auto 0.01 X10*3/uL (0.00-0.03); Imm Gran Pct Auto 0.2 % (0.0-0.4); Lymphocytes Absolute Auto 0.9 X10*3/uL (1.2-4.9); Lymphocytes Percent Auto 20.7 % (20-40); Mean Corpuscular HGB Conc 33.7 g/dl (31.0-36.0); Mean Corpuscular Hemoglobin 32.1 pg (27.0-33.0); Mean Corpuscular Volume 95.3 fL (80.0-98.0); Mean Platelet Volume 10.4 fL (9.4-12.4); Monocytes Absolute Auto 0.6 X10*3/uL (0.1-1.2); Monocytes Percent Auto 14.6 % (2-11); Neutrophils Absolute Auto 2.6 x10*3/uL (2.0-8.3); Neutrophils Percent Auto 63.8 % (45-73); Platelet Count 185 X10*3/uL (160-400); Red Cell Distribution Width 12.7 % (11.0-16.0); White Blood Count 4.1 X10*3/uL (4.8-10.8)
[2024-08-01 14:00] LABS: Prostate Specific Antigen Scr 1.97 ng/mL (<0.05-4.0)
[2024-08-01 14:07] LABS: Alanine Aminotransferase 18 U/L (0-40); Alkaline Phosphatase 63 U/L (39-117); Anion Gap 13 (12-20); Aspartate Amino Transferase 27 U/L (5-37); Bilirubin Total 0.5 mg/dL (0.0-1.0); Blood Urea Nitrogen 21 mg/dL (9-16); Calcium 9.2 mg/dL (8.4-10.2); Carbon Dioxide 25 mmol/L (22-29); Chloride 104 mmol/L (96-108); Cholesterol 342 mg/dL (<200); Estimated Glomerular Filt Rate > 60; Glucose Fasting 98 mg/dL (60-99); HDL Cholesterol 60 mg/dL (>40); LDL Cholesterol Calculated 263 mg/dL (<100); Potassium 4.5 mmol/L (3.3-5.1); Sodium 137 mmol/L (135-145); Total Protein 6.6 g/dL (6.5-8.0); Triglycerides 97 mg/dL (<150)
[2024-08-01 14:26] LABS: TSH reflex Free T4 4.44 uIU/mL (0.32-4.0)
[2024-08-01 15:00] LABS: Free T4 (Free Thyroxine) 0.94 ng/dL (0.71-1.85)
== END 2024-08-01 09:09 | disposition home or self-care (01) ==
LOC: HO.HMGCLDS 09:08
PROVIDERS: PCP Nurse Practitioner Family; Visit Provider Nurse Practitioner Family
DX: E78.5 Hyperlipidemia, unspecified (principal); Z12.5 Encounter for screening for malignant neoplasm of prostate
CPT/HCPCS: 36415; 80053; 80061; 81003; 84153; 84439; 84443; 85025

== ENCOUNTER 2024-08-03 14:07 | Outpatient (AMB) | payer MEDICARE, SELFPAY ==
--- NOTE | 2024-08-03 14:09 | A.OFFPC_ITS ---
Vital Signs 08/03/24 14:10 Height 5 ft 11 in Weight 163 lb BMI 22.7 BP 134/80 Blood Pressure Location Lt brachial Position Sitting Pulse 66 Pulse Source Pulse Oximeter Pulse Oximetry (%) 98 Intake Visit Reasons: 3 month follow up Intake Note: pt is here for 3 month follow up Shield Runner Required: No Accompanied by: Self / Same As Patient Allergies penicillin V Allergy (Intermediate, Verified 08/03/24 15:31) Rash erythromycin base Allergy (Unknown, Verified 08/03/24 15:31) Unknown Medication List - Last Reconciled 08/03/24 by Jeremie Ivey, [facility] No Known Home Meds Tobacco use date assessed: 09/21/23 Fall risk assessment: No Falls in past year Last assessed Fall Risk: 08/03/24 Dental Screening Dental Screen Date: 09/21/23 HPI 3 month follow up HPI Details small cell B cell lymphoma. Pt is currently being seen at [facility], no current meds treatments, next appt in august. Pt reports feeling well, and doing well overall. 2. Dyslipidemia: Patient has quite elevated LDL and cholesterol. He is on the carnivore /keto diet apparently. He has listened to a lot of pad cast and done his own research and he does not want to be on any medication to lower his cholesterol currently. Recent labs also showed a slightly elevated TSH, we will continue to monitor, question if related to recent oncology medications. [facility] Medical History Gynecomastia, male Small lymphocytic lymphoma Anxiety Surgical History History of total right hip arthroplasty H/O colonoscopy H/O arthroscopic knee surgery H/O left inguinal hernia repair Social History Housing: House Patient Tobacco Use Status: Never used Tobacco e-Cigarette/Vaping Use: Never Used Second Hand Smoke Exposure: No service: No Current occupational status: employed Current occupation: [employer] Current occupational exposures/hazards: No Cognitive needs: No Hearing needs: No Vision needs: No Questionnaire Thrive Questionnaire Date Thrive assessed: 08/03/24 I am a: Patient What is your living situation today?: I have a steady place to live Within the past 12 months, did the food you bought not last and you didn't have the money to get more?: Never true Within the past 12 months, did you worry whether your food would run out before you got money to buy more?: Never true Do you have trouble paying for medicines?: No Do you have trouble getting transportation to medical appointments?: No Do you have trouble paying your heating and electricity bill?: No Do you have trouble taking care of your child, family member or friend?: No Do you have trouble with day-to-day activities such as bathing, preparing meals, shopping, managing finances, etc.?: No Are you currently unemployed and looking for a job?: No Are you interested in more education?: No Please select the resources that you would like help with: None Currently or been in a relationship where the following occur: No concerns reported THRIVE Score: 0 AUDIT C Alcohol Use Questionnaire (AUDIT-C) 1. How often do you have a drink containing alcohol?: Monthly or less 2. How many drinks containing alcohol do you have on a typical day when you are drinking?: 1 or 2 3. How often do you have six or more drinks on one occasion?: Never Total Score: 1 Score Reviewed/Action Taken: Yes RUEL-7 AMB Questionnaire RUEL-7 Date RUEL - 7 assessed: 04/18/24 Source: Developed by Drs. Dany Mayberry, Bhavna Rowe, Syed Hagen and colleagues, with an educational genna from [employer]. Review of Systems Const Denies headache(s) ENT Denies headache(s) Card Denies chest pain at rest and Denies chest pain with activity Resp Denies cough GI Denies diarrhea and Denies vomiting Neuro Denies headache(s) Physical exam (Primary Care) Vital Signs: Last Vital Signs Pulse 66 08/03/24 14:10 BP 134/80 08/03/24 14:10 Pulse Ox 98 08/03/24 14:10 BMI result Body Mass Index 22.7 Tobacco/Smoking Status: Tobacco use Status Tobacco use date assessed 09/21/23 08/03/24 14:10 Patient Tobacco Use Status Never used Tobacco 08/03/24 14:10 e-Cigarette/Vaping Use Never Used 08/03/24 14:10 Thrive Assessment: Date of Thrive Assessment Date Thrive assessed 08/03/24 08/03/24 14:10 Currently or been in a relationship where the following occur: No concerns reported Resp Effort & Inspection: normal respiratory effort Auscultation: clear to auscultation bilaterally Cardio Rate: regular rate Rhythm: regular rhythm Heart sounds: S1 normal heart sound present and S2 normal heart sound present Extrem Right lower extremity: no edema Left lower extremity: no edema Coding Level of Care Code Est Pt Level 3 (42419) Diagnoses Small lymphocytic lymphoma C83.00 Dyslipidemia E78.5 Elevated TSH R79.89 Assessment & Plan Assessment & Plan (1) Small lymphocytic lymphoma: Comment: diag. 2021 Code(s): C83.00 - Small cell B-cell lymphoma, unspecified site Category: Medical Plan: not currently on medication/treatments, doing well, feeling well, follows up at [facility] in August (2) Dyslipidemia: Code(s): E78.5 - Hyperlipidemia, unspecified Category: Medical Plan: Does not want any type of medication (3) Elevated TSH: Code(s): R79.89 - Other specified abnormal findings of blood chemistry Category: Medical Plan: TSH Slightly elevated we will continue to monitor Orders: Orders Complete Blood Count Auto Diff Today E78.5 - Hyperlipidemia, unspecified, R79.89 - Other specified abnormal findings of blood chemistry UA CC w/rflx Micro + Cult Today E78.5 - Hyperlipidemia, unspecified, R79.89 - Other specified abnormal findings of blood chemistry Lipid Panel Today E78.5 - Hyperlipidemia, unspecified, R79.89 - Other specified abnormal findings of blood chemistry Thyroid Peroxidase Antibodies Today E78.5 - Hyperlipidemia, unspecified, R79.89 - Other specified abnormal findings of blood chemistry Comprehensive [place]. Panel Fast Today E78.5 - Hyperlipidemia, unspecified, R79.89 - Other specified abnormal findings of blood chemistry TSH reflex Free T4 Today E78.5 - Hyperlipidemia, unspecified, R79.89 - Other sp ecified abnormal findings of blood chemistry
[2024-08-03 14:10] VITALS: BP 134/80; PULSE 66; O2SAT 98; BMI 22.7
== END 2024-08-03 15:20 | disposition home or self-care (01) ==
PROVIDERS: PCP Nurse Practitioner Family; Visit Provider Nurse Practitioner Family
DX: C83.00 Small cell B-cell lymphoma, unspecified site (principal); E78.5 Hyperlipidemia, unspecified; R79.89 Other specified abnormal findings of blood chemistry

== ENCOUNTER → 2024-08-03 14:07 | Outpatient (BNVA) | payer MEDICARE, SELFPAY | PROVIDERS: PCP Nurse Practitioner Family; Visit Provider Nurse Practitioner Family | DX: C83.00 Small cell B-cell lymphoma, unspecified site (principal); E78.5 Hyperlipidemia, unspecified; R79.89 Other specified abnormal findings of blood chemistry | CPT/HCPCS: 99212 ==

== ENCOUNTER 2025-02-07 09:11 | Outpatient (REF) | payer MEDICARE, SELFPAY ==
--- OUTSIDE RECORDS SUMMARY | 2025-02-07 09:43 | XMS_ITS | Data Portability ---
Author Organization [place] - [facility], [facility] - INPATIENT Address [address] [place] [address] Assessment Encounter Date Assessment Date Assessment LastModified by Organization Details LastModified Time 10/03/2022 10/03/2022 Independent interpretation of the x-rays from today and the clinical examination of the right hip shows end-stage bone against bone severe degeneration the right hip with some erosion of the superior and lateral acetabular bone. He has quite a bit of atrophy to the right leg and quite a bit of atrophic or disuse atrophy and osteopenia in the right hip. The changes are mostly in the right femur. He is got a Umair B femur on the left and Emmett C bone on the right. He has had a recent diagnosis of lymphoma. He is under the care of the oncologist that the [facility]. He is presently taking an oral medication for the lymphoma. He has had a pet scan and evaluations of the femur and of the structures in general. No comment was made about his right femur only about the arthritic change in the right hip. We? ve discussed the many forms of conservative care for the treatment of the pain and disability of hip arthritis. Prescription and over the counter NSAIDS have been discussed. These have been offered to those patients who can tolerate the medications and have no contraindications . Next, we? ve discussed injection into the hip joint with ultrasound or fluoroscopy with a steroid solution. The pros and the cons were discussed and these can be made available on a more infrequent and limited basis. Moderation of activities, use of a cane or crutch, exercise modalities were all discussed. Physical therapy can be considered to help with disability and limited motion but has little ability to improve pain. Finally, we have talked about total hip arthroplasty as the treatment for the intractable hip pain patient. He has become quite intractable across the right hip. He is at 8 years with the pain and disuse leading him to have a tremendous amount of atrophy of the soft tissues and really quite a lot of atrophy even to the femoral bone to the point where he is at Emmett C for the quality of that right hip and femoral bone. he is quite limited for function and is also managed to erode some of the superior and lateral aspect of his acetabulum. We have now discussed the potential for the right anterior ISAEL . I have talked at length about the pros and the cons of the right anterior ISAEL and the potential complications that can occur. Those complications include but are not limited to infection, bleeding, stiffness, limited motion, hypermobility, dislocation, heterotopic bone formation, implant failure, need for further surgery or even second incision, leg length inequality, persistent pain, nerve palsy, lateral femoral cutaneous nerve injury or vascular injury. We have discussed the need for further surgery or even the need for a second incision. We have discussed the potential for fracture of the femur, pelvis or trochanter. Because of the use of cementless implants, this can happen in the femur or pelvis. We have discussed the potential for deep vein thrombosis, pulmonary embolus or even after the surgery . We have discussed the potential for failure and wear. The pros and the cons were discussed in a long and detailed discussion and the patient wishes to move ahead with the right anterior ISAEL. The patient has end stage OA and over the past year has failed the conservative treatments including the activity modifications, NSAIDs and even physical therapy. He has to wait for a window in his lymphoma care before he can move ahead with right total hip arthroplasty. The family believes that will be about 6 months. I have counseled him carefully to be perdomo about the right hip. He is eroding into the superior bone and I have asked him to use a cane or even crutch or crutches to try and minimize the potential for damage further in the acetabulum. Unfortunate this will even with further atrophy and weakening of that femoral bone and the potential for fracture is extremely high with his bone quality. He will move ahead with a right total hip arthroplasty with direct anterior approach when he is able to do that with his hematology approval. I have asked him to provide the results of the PET scan to make certain that the femur does not have any specific isolated metastatic or other oncologic involvement. All questions answered along a detailed discussion. [email or web address] Not available 10/03/2022 14:29:20 Plan of Treatment Reminders Order Date Submit Date Provider Last Modified By Organization Details Last Modified Time Details Appointments None recorded. Lab None recorded. Referral None recorded. Procedures None recorded. Surgeries orthopaedic surgery (SURG) 2022 023 [id number] 8 [facility], [address] [place] [address], [id number], 10:52:12 Imaging None recorded. Medication Orders None recorded. Patient TargetsNo targets recorded. Patient InstructionsNo instructions recorded. Reason for Referral None Reported. Procedures Surgical History Date Name Laterality Status Provider Name and Address Organization Details Recorded Time 3 Other completed Anny Joseterri [facility] 10/03/2022 13:48:36 9 Orthopaedic Surgery completed [facility] 10/03/2022 13:48:43 Orthopaedic Surgery completed [facility] 10/03/2022 13:48:56 Imaging Results None recorded. Procedure Notes None recorded. Medical Equipment None Reported. Allergies No known drug allergies Medications Name Sig Start Date Stop Date Status Note LastModified by Organization Details LastModified Time acyclovir 400 mg tablet Take 1 tablet every 8 hours by oral route. active Not Available Not Available No t Available allopurinol 300 mg tablet Take 1 tablet every day by oral route. active Not Available Not Available No t Available acalabrutinib 100 mg capsule Take 1 capsule twice a day by oral route. active Not Available Not Available No t Available Vitals Date Recorded Body weight Body mass index (BMI) Body height Provider Name and Address Organization Details Last Updated DateTime 10/03/2022 54842.5 g 22.7 kg/m2 179.07 cm Annydragan Carter [facility] 10/03/2022 13:45:38 Social History Question Answer Notes LastModified by Organizat ion Details LastModified Time Tobacco Smoking Status Never Smoker Annydragan Carter [facility] 10/03/2022 13:46:13 What Is Your Level Of Caffeine Consumption? Moderate Information not available 10/03/2022 How Much Tobacco Do You Smoke? No Information not available 10/03/2022 What Types Of Sporting Activities Do You Participate In? Ballet, Hiking, Weight Lifting Information not available 10/03/2022 How Many Years Have You Smoked Tobacco? 0 Information not available 10/03/2022 Sex: Unknown Functional Status Question Answer Note LastModified by Organizat ion Details LastModified Time What is your level of alcohol consumption? Occasional Information not available 10/03/2022 Do you or have you ever used smokeless tobacco? 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 Never used electronic cigarettes Information not available 10/03/2022 What is your exercise level? Moderate Information not available 10/03/2022 Mental Status None recorded. Family History Relationship Description Onset Age of this Age Resolved Age Notes LastModified by Organization Details LastModified Time Father No current problems or disability Not available 10/03 13:48:20 Mother No current problems or disability Not available 10/03 13:48:20 Medical History Condition Response Osteoarthritis / Rheumatoid arthritis / Other Y Bleeding Disorder Y Cancer Y Past Encounters Encounter ID Performer Location Encounter Start Date Encounter Closed Date Diagnosis/Indication Diagnosis SNOMED-CT Code Diagnosis ICD10 Code Diagnosis Note [id number] DEEPIKA NEWMAN MD [facility] Office [address] [place] [phone] 10/03/2022 12:58:15 10/03/2022 15:37:57 Osteoarthritis of right hip joint 1083154364 78389 M16.11 Health Concerns Section Related Observation LastModified by Organization Detai ls LastModified Time None Recorded Concern Status LastModified by Organization Details LastModified Time None Recorded Advance Directives Directive None Recorded Payers Insurance Date Sequence Insurance Name Policy Number Policy Sauer Covered Member ID Sauer Member ID Guarantor Name 09/24/2022 2 [place]ICARE [place]: [employer] Amauri Benjamin [id number] Amauri Benjamin 10/06/2022 1 [facility]: MEDICARE PPO BLUE (MEDICARE REPLACEMENT PPO) [id number] Amauri Benjamin [id number] Amauri Benjamin Notes Date Note Type Note Provider Name and Address Organization Details Recorded Time 10/03/2022 text/html Right hip pain. Patient presents with now with over 8- years of pain in his right hip. He reports has been trying to work through the pain. He has been attempting to maintain his activities. He has now become quite incapacitated by the right hip. he is presently taking no real medications for the hip. He is limping terribly across the right hip. He has a great deal of difficulty with sense of atrophy in that right leg in the musculature and in the buttock. His left hip is doing fine. He has never had injections in the right hip he has had no surgery in the right hip. He is now really miserable because of his limited activities and terrible limp. DEEPIKA NEWMAN MD [address] [place] [address], [phone], [facility] 10/03/2022 14:29:32
[2025-02-07 10:03] LABS: MANUAL DIFF FLAG NO
[2025-02-07 10:13] LABS: Appearance Urine Clear; Color Urine Yellow; Glucose Urine UA Negative (Negative); Leukocyte Esterase Urine Negative (Negative); Nitrite Urine Negative (Negative); PH 5.5 (5.0-9.0); Specific Gravity - Urine 1.025 (1.005-1.025); Urine Blood Negative (Negative); Urine Ketones Trace mg/dL (Negative); Urine Protein Negative (Neg-Trace)
[2025-02-07 10:19] LABS: Basophils Percent Auto 0.6 % (0-2); Eosinophils Absolute Auto 0.2 X10*3/uL (0.0-0.4); Eosinophils Percent Auto 3.6 % (0-4); Hematocrit 42.7 % (42.0-52.0); Hemoglobin 14.8 g/dl (14.0-18.0); Imm Gran Abs Auto 0.01 X10*3/uL (0.00-0.03); Imm Gran Pct Auto 0.2 % (0.0-0.4); Lymphocytes Absolute Auto 1.2 X10*3/uL (1.2-4.9); Lymphocytes Percent Auto 25.2 % (20-40); Mean Corpuscular HGB Conc 34.7 g/dl (31.0-36.0); Mean Corpuscular Hemoglobin 31.5 pg (27.0-33.0); Mean Corpuscular Volume 90.9 fL (80.0-98.0); Mean Platelet Volume 9.7 fL (9.4-12.4); Monocytes Absolute Auto 0.4 X10*3/uL (0.1-1.2); Monocytes Percent Auto 9.4 % (2-11); Neutrophils Absolute Auto 2.9 x10*3/uL (2.0-8.3); Platelet Count 206 X10*3/uL (160-400); Red Cell Distribution Width 12.8 % (11.0-16.0); White Blood Count 4.7 X10*3/uL (4.8-10.8)
[2025-02-07 11:29] LABS: Alanine Aminotransferase 23 U/L (0-40); Alkaline Phosphatase 65 U/L (39-117); Anion Gap 12 (12-20); Aspartate Amino Transferase 31 U/L (5-37); Bilirubin Total 0.6 mg/dL (0.0-1.0); Blood Urea Nitrogen 25 mg/dL (9-16); Calcium 8.9 mg/dL (8.4-10.2); Carbon Dioxide 26 mmol/L (22-29); Chloride 103 mmol/L (96-108); Cholesterol 332 mg/dL (<200); Estimated Glomerular Filt Rate > 60; Glucose Fasting 98 mg/dL (60-99); HDL Cholesterol 67 mg/dL (>40); LDL Cholesterol Calculated 247 mg/dL (<100); Potassium 4.7 mmol/L (3.3-5.1); Sodium 136 mmol/L (135-145); TSH reflex Free T4 4.35 uIU/mL (0.32-4.0); Total Protein 6.7 g/dL (6.5-8.0); Triglycerides 90 mg/dL (<150)
[2025-02-07 12:22] LABS: Free T4 (Free Thyroxine) 0.93 ng/dL (0.71-1.85)
[2025-02-08 12:03] LABS: Thyroid Peroxidase Antibodies 8 IU/mL (<9)
== END 2025-02-07 09:12 | disposition home or self-care (01) ==
LOC: HO.HMGCLDS 09:11
PROVIDERS: PCP Nurse Practitioner Family; Visit Provider Nurse Practitioner Family
DX: E78.5 Hyperlipidemia, unspecified (principal); R79.89 Other specified abnormal findings of blood chemistry
CPT/HCPCS: 36415; 80053; 80061; 81003; 84439; 84443; 85025; 86376

== ENCOUNTER 2025-02-14 10:12 | Outpatient (AMB) | payer MEDICARE, SELFPAY ==
[2025-02-14 10:18] VITALS: BP 190/100; PULSE 71; O2SAT 99; BMI 23.0
--- NOTE | 2025-02-14 10:18 | MHC.PC.OV ---
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: No Accompanied by: Self / Same As Patient Allergies penicillin V Allergy (Intermediate, Verified 02/14/25 10:19) Rash erythromycin base Allergy (Unknown, Verified 02/14/25 10:19) Unknown Tobacco use date assessed: 02/14/25 Fall risk assessment: No Falls in past year Last assessed Fall Risk: 02/14/25 Dental Screening Dental Screen Date: 02/14/25 Did you have a dental visit in the last 12 months?: Yes Did you have a dental problem in the last 6 months where you did not have access to dental care?: No Was dental information given to patient?: Patient has dentist HPI 5 months f/up HPI Details History of Present Illness The patient is a 69-year-old male presenting with Small Lymphocytic Lymphoma (SLL) for follow-up. He has consulted with both oncology and hematology, with plans to follow up with them in May. Notably, he denies chest pain, shortness of breath, headaches, and blurred vision. While his home blood pressure readings fall within the 120s/70s range, he exhibits elevated blood pressure readings in the office today, potentially due to anxiety associated with clinical visits. Pt is not interested in medication Recent lab results indicated hyperlipidemia with a very elevated LDL cholesterol levels. Despite recommendations, the patient is firm in his decision not to initiate treatment with statins or other lipid-lowering medications like Repatha or ezetimibe. Additionally, he has noted a mild thyroid function abnormality but prefers not to take any medication. Health Maintenance Social History - The patient experiences white coat syndrome, indicating anxiety related to clinical visits. Review of Systems - Cardiovascular: Denies chest pain. - Respiratory: Denies shortness of breath. - Neurological: Denies headache, blurred vision. Physical Exam - Cardiovascular- S1, S2 auscultated and normal. - Respiratory- Lungs clear to auscultation bilaterally. Results - Labs: Elevated cholesterol levels, including high LDL. Plan The patient will continue follow-up management for Small Lymphocytic Lymphoma (SLL) with the hematology and immunology departments, with a planned consultation in May. While blood pressure was elevated today, this correlates with his anxiety and white coat syndrome as home readings demonstrate controlled levels. Management of elevated cholesterol is a priority; although the patient declines statins, encouraging lifestyle modifications remains critical for cardiovascular health. The abnormal thyroid function will be monitored, respecting the patient?s preference to avoid medication. Continual support for his anxiety about medical visits will aid in reducing stress and ensuring adherence to follow-up plans. NOTE: pt aware even can result from elevated BPs and cholesterol/LDL levels. Discussion Notes I have discussed with the patient the importance of continued monitoring and management of his Small Lymphocytic Lymphoma (SLL), emphasizing the need for future follow-up with his oncology team in May. The discussion addressed the patient's elevated cholesterol levels, but despite my recommendations, he opts against initiating lipid-lowering therapy, understanding the associated risks. We reviewed his elevated blood pressure reading today and its probable link to anxiety and scheduled follow-ups under these circumstances. I advised him on monitoring his thyroid function and respecting his decision to avoid medication currently. Follow-up appointments and monitoring strategies were outlined to ensure continued assessment of his health status. Patient Instructions - Follow up with your oncology team in May. - Maintain a record of home blood pressure readings and send them for review. - Focus on lifestyle and dietary modifications to manage cholesterol levels. - Consider strategies to manage anxiety related to medical appointments. - Monitor thyroid function as previously planned. - Return for assessment following your oncology consultation or if symptoms worsen. -take BP at home, send me values via the portal [facility] Medical History Gynecomastia, male Small lymphocytic lymphoma Anxiety Surgical History History of total right hip arthroplasty H/O colonoscopy H/O arthroscopic knee surgery H/O left inguinal hernia repair Social History Housing: House Patient Tobacco Use Status: Never used Tobacco e-Cigarette/Vaping Use: Never Used Second Hand Smoke Exposure: No service: No Current occupational status: employed Current occupation: [employer] Current occupational exposures/hazards: No Cognitive needs: No Hearing needs: No Vision needs: No Questionnaire PHQ-9 Over the last 2 weeks, how often have you been bothered by any of the following problems? 1. Little interest or pleasure in doing things: not at all 2. Feeling down, depressed, or hopeless: not at all 3. Trouble falling or staying asleep, or sleeping too much: not at all 4. Feeling tired or having little energy: not at all 5. Poor appetite or overeating: not at all 6. Feeling bad about yourself - or that you are a failure or have let yourself or your family down: not at all 7. Trouble concentrating on things, such as reading the newspaper or watching television: not at all 8. Moving or speaking so slowly that other people could have noticed. Or the opposite - being so fidgety or restless that you have been moving around a lot more than usual: not at all 9. Thoughts that you would be better off or of hurting yourself in some way: not at all Total score: 0 Depression Screening Interpretation: Negative Depression Screening Done: Yes 86294 - PHQ-9 Billing: Yes Source: Developed by Drs. Dany Mayberry, Bhavna Rowe, Syed Hagen and colleagues, with an educational genna from itembase. Thrive Questionnaire Date Thrive assessed: 02/14/25 I am a: Patient What is your living situation today?: I have a steady place to live Within the past 12 months, did the food you bought not last and you didn't have the money to get more?: I choose not to answer this question Within the past 12 months, did you worry whether your food would run out before you got money to buy more?: I choose not to answer this question Do you have trouble paying for medicines?: No Do you have trouble getting transportation to medical appointments?: No Do you have trouble paying your heating and electricity bill?: No Do you have trouble taking care of your child, family member or friend?: No Do you have trouble with day-to-day activities such as bathing, preparing meals, shopping, managing finances, etc.?: No Are you currently unemployed and looking for a job?: No Are you interested in more education?: No Please select the resources that you would like help with: None Currently or been in a relationship where the following occur: No concerns reported THRIVE Score: 0 AUDIT C Alcohol Use Questionnaire (AUDIT-C) 1. How often do you have a drink containing alcohol?: Never 3. How often do you have six or more drinks on one occasion?: Never Total Score: 0 Score Reviewed/Action Taken: Yes RUEL-7 AMB Questionnaire RUEL-7 Date RUEL - 7 assessed: 02/14/25 Feeling nervous, anxious, or on edge: 0 = Not at all Not being able to stop or control worryin = Not at all Worrying too much about different things: 0 = Not at all Trouble relaxin = Not at all Being so restless that it is hard to sit still: 0 = Not at all Becoming easily annoyed or irritable: 0 = Not at all Feeling afraid as if something awful might happen: 0 = Not at all Total RUEL-7 score (0-4 normal; 5-9 mild; 10-14 moderate; 15-21 severe): 0 Source: Developed by Drs. Dany Mayberry, Bhavna Rowe, Syed Hagen and colleagues, with an educational genna from itembase. RUEL-7 Assessment Billing RUEL-7 Assessment Tool: RUEL-7 Assessment 82483 Physical exam (Primary Care) Vital Signs: Last Vital Signs Pulse 71 02/14/25 10:18 BP 190/100 H 02/14/25 10:18 Pulse Ox 99 02/14/25 10:18 Oxygen Delivery Method Room Air 02/14/25 10:18 BMI result Body Mass Index 23.0 Tobacco/Smoking Status: Tobacco use Status Tobacco use date assessed 02/14/25 02/14/25 10:20 Patient Tobacco Use Status Never used Tobacco 02/14/25 10:20 e-Cigarette/Vaping Use Never Used 02/14/25 10:20 PHQ-9: PHQ-9 Score PHQ-9: Total score 0 02/14/25 10:29 Depression Screening Interpretation: Negative Thrive Assessment: Date of Thrive Assessment Date Thrive assessed 02/14/25 02/14/25 10:20 Currently or been in a relationship where the following occur: No concerns reported Coding Level of Care Code Est Pt Level 3 (24259) Diagnoses Elevated TSH R79.89 Dyslipidemia E78.5 HTN (hypertension) I10 Vitamin D deficiency E55.9 Screening PSA (prostate specific antigen) Z12.5 Additional Codes RUEL-7 Assessment Billing - RUEL-7 Assessment Tool: RUEL-7 Assessment 69620 ([id number]) PHQ-9 - 38292 - PHQ-9 Billing: Yes ([id number]) Assessment & Plan Assessment & Plan (1) Elevated TSH: Code(s): R79.89 - Other specified abnormal findings of blood chemistry Category: Medical (2) Dyslipidemia: Code(s): E78.5 - Hyperlipidemia, unspecified Category: Medical (3) HTN (hypertension): Code(s): I10 - Essential (primary) hypertension Category: Medical (4) Vitamin D deficiency: Code(s): E55.9 - Vitamin D deficiency, unspecified Category: Medical (5) Screening PSA (prostate specific antigen): Code(s): Z12.5 - Encounter for screening for malignant neoplasm of prostate Category: Medical Plan . Orders: Orders Comprehensive [place]. Panel Fast Today E55.9 - Vitamin D deficiency, unspecified, I10 - Essential (primary) hypertension, R79.89 - Other specified abnormal findings of blood chemistry Lipid Panel Today E55.9 - Vitamin D deficiency, unspecified, I10 - Essential (primary) hypertension, R79.89 - Other specified abnormal findings of blood chemistry Prostate Specific Antigen Scr Today Z12.5 - Encounter for screening for malignant neoplasm of prostate Complete Blood Count Auto Diff Today E55.9 - Vitamin D deficiency, unspecified, I10 - Essential (primary) hypertension, R79.89 - Other specified abnormal findings of blood chemistry TSH reflex Free T4 Today E55.9 - Vitamin D deficiency, unspecified, I10 - Essential (primary) hypertension, R79.89 - Other specified abnormal findings of blood chemistry UA CC w/rflx Micro + Cult Today E55.9 - Vitamin D deficiency, unspecified, I10 - Essential (primary) hypertension, R79.89 - Other specified abnormal findings of blood chemistry Vitamin D 25-OH (D2 and D3) Today E55.9 - Vitamin D deficiency, unspecified
[2025-02-14 11:07] VITALS: BP 160/90
== END 2025-02-14 11:10 | disposition home or self-care (01) ==
LOC: HO.HMCC 10:12
PROVIDERS: PCP Nurse Practitioner Family; Visit Provider Nurse Practitioner Family
DX: R79.89 Other specified abnormal findings of blood chemistry (principal); E78.5 Hyperlipidemia, unspecified; I10 Essential (primary) hypertension; E55.9 Vitamin D deficiency, unspecified; Z12.5 Encounter for screening for malignant neoplasm of prostate

== ENCOUNTER → 2025-02-14 10:12 | Outpatient (BNVA) | payer MEDICARE, SELFPAY | PROVIDERS: PCP Nurse Practitioner Family; Visit Provider Nurse Practitioner Family | DX: I10 Essential (primary) hypertension (principal); R79.89 Other specified abnormal findings of blood chemistry; E78.5 Hyperlipidemia, unspecified; E55.9 Vitamin D deficiency, unspecified | CPT/HCPCS: 96127; 99212 ==

== ENCOUNTER 2025-08-04 08:10 | Outpatient (REF) | payer MEDICARE, SELFPAY ==
--- OUTSIDE RECORDS SUMMARY | 2025-08-04 08:12 | XMS_ITS | Encounter Summary ---
Author Organization [facility] Address [address] [facility] [address] [place] [address] Phone Care Team Providers Care Theater Technician Name Role Phone Yomi Smith DO Unavailable [phone] Jesse Weinstein MD Unavailable Kaelyn Zamora COMMUNICATIONS ASSOCIATE Unavailable + Polina Conroy FLUE GAS ANALYST Unavailable [phone] Jeremie Ivey ALMOND GRINDER Primary Care Provider + Encounter Details Date Type Department Care Team (Late st Contact Info) Description 03/03/2023 Procedure Pass [facility] Periop [address] [place] [address] Social History Tobacco Use Types Packs/Day Years Used Date Smoking Tobacco: Never Smokeless Tobacco: Never Alcohol Use Standard Drinks/Week Comments Not Currently 0 (1 standard drink = 0.6 oz pur e alcohol) social Education Answer Date Recorded Are you interested in more education? Not on diana e 01/08/2023 Are you concerned about learning? Not on file 01/08/2023 No 01/08/2023 No 01/08/2023 Digital Access Answer Date Recorded No 02/10/2023 No 02/10/2023 Reliable internet access at home? Not on file 02/10/2023 Device with a working camera? Not on file Intimate Partner Violence Answer Date R ecorded Are you denied basic needs s uch as food, clothing, or medical care? No 03/03/2023 In the past 12 months have y ou been in a relationship with a person who hurts, threatens, or tries to control you? No 03/03/2023 Are you denied basic needs s uch as food, clothing, or medical care? No 03/03/2023 In the past 12 months have y ou been in a relationship with a person who hurts, threatens, or tries to control you? No 03/03/2023 Sex and Gender Information Value Date Recorded Sex Assigned at Male 08/01/2022 1:08 PM EST Legal Sex Male 2:39 PM EDT Gender Identity Male 08/01/2022 1:08 PM EST Sexual Orientation Straight 08/01/2022 1: 08 PM EST documented as of this encounter Functional Status * Calculated C-SSRS Risk Score (Lifetime/Recent) Answer Date of Assessment Author No Risk Indicated 03/03/2023 5:00 PM EDT Mylene Cabezas RN * [place] Suicide Severity Rating Scale (Screener/Recent Self-Report) Question Answer Date of Assessment Author 1. Wish to be (Past 1 Month) No 03/03/2023 5:00 PM EDT Mylene Cabezas Ma, RN 2. Non-Specific Active Suicidal Thoughts (Past 1 Month) No 03/03/2023 5:00 PM DILANT Mylene Cabezas Ma, RN 6. Suicidal Behavior (Lifetime) No 03/03/2023 5:00 PM DILANT Mylene Cabezas Ma, RN documented as of this encounter Plan of Treatment Upcoming Encounters Date Type Department Care Team (Late st Contact Info) Description 11/16/2025 10:10 AM EST Blood Draw Laboratory Services, [address] [place] [address] Jesse Weinstein MD [address] [place] [phone] [email or web address] 11/16/2025 11:00 AM EST Office Visit [facility], Division of Hematologic Oncology, [facility] [address] [place] [address] Jesse Weinstein MD [address] [place] [phone] [email or web address] documented as of this encounter Visit Diagnoses Not on filedocumented in this encounter Additional Health Concerns Infection Onset Date Last Indicated Resolved Time COVID-19 Comment:Per Note Documentation 07/12/2024 07/11/2024 10:32 AM EST documented as of this encounter Care Teams Theater Technician Relationship Specialty Start Date End Date Jeremie Ivey NP [facility] [place] [address] PCP - General Nurse Practitioner 11/26/22 Yomi Smith DO [address] [place] [address], [address] [place] [address] [email or web address] Medicine 08/11/22 Jesse Weinstein MD [address] [place] [phone] [email or web address] Primary Oncologist Medical Oncology 08/20/22 Kaelyn Zamora CNP [address] [place] [phone] [email or web address] Nurse Practitioner Medical Oncology 08/20/22 Polina Conroy LICSW [address] [place] [phone] [email or web address] Nursery Hand Oncology 09/11/22 documented as of this encounter Additional Source Comments The information contained in this document represents components of the legal health record. It is not the complete legal health record.[facility]
--- OUTSIDE RECORDS SUMMARY | 2025-08-04 08:12 | XMS_ITS | Encounter Summary ---
Author Organization [facility] Address [address] [facility] [address] [place] [address] Phone Care Team Providers Care Interactive Marketing Strategist Name Role Phone Yomi Smith DO Primary Care Provider Yomi Smith DO Unavailable [phone] Jesse Weinstein MD Unavailable Kaelyn Zamora BLENDER CONVEYOR OPERATOR Unavailable + Polina Conroy BOTTOM SAW OPERATOR Unavailable [phone] Jeremie Ivey SHIP PURSER Primary Care Provider + Encounter Details Date Type Department Care Team (Late st Contact Info) Description 09/01/2022 Procedure Pass [facility] Imaging Department, [facility] [place], [place] [address] [facility], [address] [place] [address] Social History Tobacco Use Types Packs/Day Years Used Date Smoking Tobacco: Never Smokeless Tobacco: Never Alcohol Use Standard Drinks/Week Comments Yes 0 (1 standard drink = 0.6 oz pur e alcohol) social Sex and Gender Information Value Date Recorded Sex Assigned at Male 08/01/2022 1:08 PM EST Legal Sex Male 2:39 PM EDT Gender Identity Male 08/01/2022 1:08 PM EST Sexual Orientation Straight 08/01/2022 1: 08 PM EST documented as of this encounter Plan of Treatment Upcoming Encounters Date Type Department Care Team (Late st Contact Info) Description 11/16/2025 10:10 AM EST Blood Draw Laboratory Services, [facility] [address] [facility], 2nd [place] [address] Jesse Weinstein MD [address] [place] [phone] [email or web address] 11/16/2025 11:00 AM EST Office Visit [facility], Division of Hematologic Oncology, [address] [place] [address] Jesse Weinstein MD [address] [place] [phone] [email or web address] documented as of this encounter Visit Diagnoses Not on filedocumented in this encounter Additional Health Concerns Infection Onset Date Last Indicated Resolved Time COVID-19 Comment:Per Note Documentation 07/12/2024 07/11/2024 10:32 AM EST documented as of this encounter Care Teams Interactive Marketing Strategist Relationship Specialty Start Date End Date Yomi Smith DO [address] [place] [address], [facility] [address] [place] [address] [email or web address] PCP - General Internal Medicine 08/01/22 11/25/22 Jeremie Ivey NP [facility] [place] [address] PCP - General Nurse Practitioner 11/26/22 Yomi Smith DO [address] [place] [address], [address] [place] [address] [email or web address] Internal Medicine 08/11/22 Jesse Weinstein MD [address] [place] [phone] [email or web address] Primary Oncologist Medical Oncology 08/20/22 Kaelyn Zamora CNP [address] [place] [address] [email or web address] Nurse Practitioner Medical Oncology 08/20/22 Polina Conroy, [address] [address] [email or web address] Social Media Sr Strategy Manager Oncology 09/11/22 documented as of this encounter Additional Source Comments The information contained in this document represents components of the legal health record. It is not the complete legal health record.[facility]
--- OUTSIDE RECORDS SUMMARY | 2025-08-04 08:12 | XMS_ITS | Encounter Summary ---
Author Organization [facility] Address [address] [facility] [place] [address] Phone Care Team Providers Care Deputy Sheriff Civil Division Name Role Phone Rafynehal Ewaemilee DO Unavailable [phone] Jesse Weinstein MD Unavailable Kaelyn Zamora ELECTROLESS PLATER Unavailable + Polina Conroy HIGH SCHOOL COMPUTER SCIENCE TEACHER Unavailable [phone] Jeremie Ivey NP Primary Care Provider + Encounter Details Date Type Department Care Team (Late st Contact Info) Description 11/10/2023 Procedure Pass [facility]alind [facility] Imaging Department, [facility] [place], [place] [address] [facility], [address] [place] [address] Social History Tobacco Use Types Packs/Day Years [...] 10:10 AM EST Blood Draw Laboratory Services, [address]nd [place] [address] Jesse Weinstein MD [address] [place] [phone] [email or web address] 11/16/2025 11:00 AM EST Office Visit [facility], Division of Hematologic Oncology, [address], [address] [place] [address] Jesse Weinstein MD [address] [place] [phone] [email or web address] documented as of this encounter Visit Diagnoses Not on filedocumented in this encounter Additional Health Concerns Infection Onset Date Last Indicated Resolved Time COVID-19 Comment:Per Note Documentation 07/12/2024 07/11/2024 10:32 AM EST documented as of this encounter Care Teams Deputy Sheriff Civil Division Relationship Specialty Start Date End Date Jeremie Ivey NP [address] [facility] [place] [address] [place] [address] PCP - General Nurse Practitioner 11/26/22 Yomi Smith DO [address] [place] [address], [address] [place] [address] [email or web address] Internal Medicine 08/11/22 Jesse Weinstein MD [address] [place] [phone] [email or web address] Primary Oncologist Medical Oncology 08/20/22 Kaelyn Zamora CNP [address] [place] [phone] [email or web address] Nurse Practitioner Medical Oncology 08/20/22 Polina Conroy, [address] [address] [email or web address] Deputy Assessor Oncology 09/11/22 documented as of this encounter Additional Source Comments The information contained in this document represents components of the legal health record. It is not the complete legal health record.[facility]
--- OUTSIDE RECORDS SUMMARY | 2025-08-04 08:13 | XMS_ITS | Encounter Summary ---
Author Organization [facility] Address [address] [place] [phone] Phone Care Team Providers Care Tile Picker Name Role Phone Yomi Smith DO Unavailable [phone] Jesse Weinstein MD Unavailable Kaelyn Zamora GANDY DANCER Unavailable + Polina ConroySW Unavailable [phone] Jeremie Ivey RESERVATIONS CLERK Primary Care Provider + Encounter Details Date Type Department Care Team (Late st Contact Info) Description 11/07/2024 Documentation [facility], Division of Hematologic Oncology, [facility] [address] [facility], 7th [place] [address] Shonna Forte RN [address] [place] [address] [email or web address] Social History Tobacco Use Types Packs/Day Years [...] PM EST documented as of this encounter Progress Notes * Shonna Forte RN - 11/07/2024 3:34 PM EST Note Subject: Protocol 22-303 Drug Accountability Drug accountability Drug Name: Acalabrutinib Dosage per pharmacy label: 100 mg Cycle: 10 Date dispensed: 06/04/23 Date returned: 06/29/23 If discrepancy, explain. Per Pharmacy label total # of pills dispensed: 60 # of pills returned: 12 Per Pharmacy label total # of bottles dispensed: 2 # of bottles returned: 2 Date diary was returned: No missed doses reported, drug diary not returned Drug accountability Drug Name: Venetoclax Dosage per pharmacy label: 100 mg Cycle: 10 Date dispensed: 06/04/23 Date returned: 06/29/23 If discrepancy, explain. Per Pharmacy label total # of pills dispensed: 120 # of pills returned: 20 Per Pharmacy label total # of bottles dispensed: 1 # of bottles returned: 1 Date diary was returned: No missed doses reported, drug diary not returned Shonna Forte RN documented in this encounter Plan of Treatment Upcoming Encounters Date Type Department Care Team (Late st Contact Info) Description 11/16/2025 10:10 AM EST Blood Draw Laboratory Services, [address] [place] [address] Jesse Weinstein MD [address] [place] [id number] [email or web address] 11/16/2025 11:00 AM EST Office Visit [facility], Division of Hematologic Oncology, [address], [address] [place] [address] Jesse Weinstein MD [address] [place] [id number] [email or web address] documented as of this encounter Visit Diagnoses Not on filedocumented in this encounter Care Teams Tile Picker Relationship Specialty Start Date End Date Jeremie Ivey NP [address] [place] [address] PCP - General Nurse Practitioner 11/26/22 Yomi Smith DO [address] [place] [address], [address] [place] [address] [email or web address] Internal Medicine 08/11/22 Jesse Weinstein MD [address] [place] [phone] [email or web address] Primary Oncologist Medical Oncology 08/20/22 Kaelyn Zamora CNP [address] [place] [phone] [email or web address] Nurse Practitioner Medical Oncology 08/20/22 Polina Conroy, SPOT REMOVER [address] [place] [address] [email or web address] Logistics Administrator Oncology 09/11/22 documented as of this encounter Additional Source Comments The information contained in this document represents components of the legal health record. It is not the complete legal health record.[facility]
--- OUTSIDE RECORDS SUMMARY | 2025-08-04 08:13 | XMS_ITS | Encounter Summary ---
Author Organization [facility] Address [address] [facility] [address] [place] [address] Phone Care Team Providers Care Rollout Manager Name Role Phone Jyoti Dano MCCANN Primary Care Provider [phone] Yomi Smith DO Primary Care Provider [phone] Yomi Smith DO Unavailable [phone] Jesse Weinstein MD Unavailable Kaelyn Zamora SPOT REMOVER Unavailable + Polina Conroy ARMED CUSTOM PROTECTION OFFICER Unavailable [phone] Jeremie Ivey NP Primary Care Provider + Encounter Details Date Type Department Care Team (Late st Contact Info) Description 08/11/2017 Ancillary Orders [address] [phone] Tanvir Trammell DO [address] [place] [address] Orthopedics & Sports Medicine, [facility] [place] [address] [email or web address] Right hip pain Social History Tobacco Use Types Packs/Day Years [...] 10:10 AM EST Blood Draw Laboratory Services, [address]nd [place] [address] Jesse Weinstein MD [address] [place] [address] [email or web address] 11/16/2025 11:00 AM EST Office Visit [facility], Division of Hematologic Oncology, [address], [address] [place] [address] Jesse Weinstein MD [address] [place] [phone] [email or web address] documented as of this encounter Visit Diagnoses Diagnosis Right hip pain Pain in joint, pelvic region and thigh documented in this encounter Additional Health Concerns Infection Onset Date Last Indicated Resolved Time COVID-19 Comment:Per Note Documentation 07/12/2024 07/11/2024 10:32 AM EST documented as of this encounter Care Teams Rollout Manager Relationship Specialty Start Date End Date Dano Montes DO PCP - General Family Medicine 07/16/17 07/31/22 Yomi Smith DO [address] [place] [address], [address] [place] [id number] PCP - General Internal Medicine 08/01/22 11/25/22 Jeremie Ivey NP [facility] [place] [address] [place] [address] PCP - General Nurse Practitioner 11/26/22 Yomi Smith DO [address] [place] [address], [address] [place] [address] [email or web address] Internal Medicine 08/11/22 Jesse Weinstein MD [address] [place] [phone] [email or web address] Primary Oncologist Medical Oncology 08/20/22 Kaelyn Zamora CNP [address] [place] [phone] [email or web address] Nurse Practitioner Medical Oncology 08/20/22 Polina Conroy, [address] [address] [email or web address] Home Health Care Provider Oncology 09/11/22 documented as of this encounter Additional Source Comments The information contained in this document represents components of the legal health record. It is not the complete legal health record.[facility]
--- OUTSIDE RECORDS SUMMARY | 2025-08-04 08:13 | XMS_ITS | Encounter Summary ---
Author Organization [facility] Address [address] [facility] [address] [place] [address] Phone Care Team Providers Care Foundation Digger Name Role Phone Yomi Smith DO Primary Care Provider Yomi Smith DO Unavailable [phone] Jesse Weinstein MD Unavailable Kaelyn Zamora SANITATION MANAGER Unavailable + Polina Conroy EMPLOYEE WELFARE MANAGER Unavailable [phone] Jeremie Ivey DELIVERY AIDE Primary Care Provider + Encounter Details Date Type Department Care Team (Late st Contact Info) Description 09/01/2022 Procedure Pass Rosalind Lank Imaging Department, [facility] [place], [place] [address] [facility], [address] [place] [address] Social History Tobacco Use Types Packs/Day Years [...] 10:10 AM EST Blood Draw Laboratory Services, [facility] [address] [facility], 2nd [place] [address] Jesse Weinstein MD [address] [place] [phone] [email or web address] 11/16/2025 11:00 AM EST Office Visit [facility], Division of Hematologic Oncology, [address] [place] [address] Jesse Weinstein MD [address] [place] [phone] [email or web address] documented as of this encounter Visit Diagnoses Not on filedocumented in this encounter Additional Health Concerns Infection Onset Date Last Indicated Resolved Time COVID-19 Comment:Per Note Documentation 07/12/2024 07/11/2024 10:32 AM EST documented as of this encounter Care Teams Foundation Digger Relationship Specialty Start Date End Date Yomi Smith DO [address] [place] [address], [facility] [address] [place] [address] [email or web address] PCP - General Internal Medicine 08/01/22 11/25/22 Jeremie Ivey NP [facility] [place] [address] PCP - General Nurse Practitioner 11/26/22 Yomi Smith DO [address] [place] [address], [address] [place] [address] [email or web address] Internal Medicine 08/11/22 Jesse Weinstein MD [address] [place] [address] [email or web address] Primary Oncologist Medical Oncology 08/20/22 Kaelyn Zamora CNP [address] [place] [address] [email or web address] [email or web address] Medical Oncology 08/20/22 Polina Conroy, [address] [address] [email or web address] Cardiac Cath Lab Radiology Technologist Oncology 09/11/22 documented as of this encounter Additional Source Comments The information contained in this document represents components of the legal health record. It is not the complete legal health record.[facility]
--- OUTSIDE RECORDS SUMMARY | 2025-08-04 08:13 | XMS_ITS | Data Portability ---
Author Organization [place] - [facility], MAIN OFFICE Address [address] [place] [address] [address] [place] [address] Assessment Encounter Date Assessment Date Assessment LastModified by Organization Details LastModified Time 07/31/2022 07/31/2022 Spent 60 minutes for evaluation and management, including face to face interaction, review of labs and notes from specialist, discussion and coordination of care. Not available 07/31/2022 12:29:17 Plan of Treatment Reminders Order Date Submit Date Provider Last Modified By Organization Details Last Modified Time Details Appointments None recorded. Lab TSH, serum or plasma 2021 [facility] (Centralized Electronic Ordering - All Locations), Patient Can Go To The Location Of Their Choice, [id number] 2 01:10:30 vitamin D, 25-hydroxy, total, serum 2021 [facility] (Centralized Electronic Ordering - All Locations), Patient Can Go To The Location Of Their Choice, [id number] 2 01:10:31 ferritin, serum or plasma 2021 [facility] (Centralized Electronic Ordering - All Locations), Patient Can Go To The Location Of Their Choice, [address] 3 05:01:47 folate, serum 2021 [facility] (Centralized Electronic Ordering - All Locations), Patient Can Go To The Location Of Their Choice, [address] 2 01:10:29 iron + total iron-bindin g capacity (TIBC), serum 2021 [facility] (Centralized Electronic Ordering - All Locations), Patient Can Go To The Location Of Their Choice, [id number] 11/18/202 2 00:46:29 retic count, blood 2021 [facility] (Centralized Electronic Ordering - All Locations), Patient Can Go To The Location Of Their Choice, 05:01:47 vitamin B12, serum 2021 [facility] (Centralized Electronic Ordering - All Locations), Patient Can Go To The Location Of Their Choice, 01:10:27 CBC w/ auto diff 2021 [facility] (Centralized Electronic Ordering - All Locations), Patient Can Go To The Location Of Their Choice, 23:42:21 CMP, serum or plasma 2021 [facility] (Centralized Electronic Ordering - All Locations), Patient Can Go To The Location Of Their Choice, 00:46:27 ferritin, serum or plasma 2021 [facility] (Centralized Electronic Ordering - All Locations), Patient Can Go To The Location Of Their Choice, 01:10:28 folate, serum 2021 [facility] (Centralized Electronic Ordering - All Locations), Patient Can Go To The Location Of Their Choice, 05:01:47 iron + total iron-bindin g capacity (TIBC), serum 2021 [facility] (Centralized Electronic Ordering - All Locations), Patient Can Go To The Location Of Their Choice, 05:01:47 retic count, blood 2021 [facility] (Centralized Electronic Ordering - All Locations), Patient Can Go To The Location Of Their Choice, 21:52:01 vitamin B12, serum 2021 [facility] (Centralized Electronic Ordering - All Locations), Patient Can Go To The Location Of Their Choice, [id number] 05/28/202 3 05:01:47 PIERRE + rf (antinuclea r antibodies + rheumatoid factor), quantitativ e, serum 2021 [facility] (Centralized Electronic Ordering - All Locations), Patient Can Go To The Location Of Their Choice, [id number] 3 05:01:47 C-reactive protein, quantitativ e, serum or plasma 2021 [facility] (Centralized Electronic Ordering - All Locations), Patient Can Go To The Location Of Their Choice, [id number] 3 05:01:47 ESR (erythrocyt e sedimentati on rate), blood 2021 [facility] (Centralized Electronic Ordering - All Locations), Patient Can Go To The Location Of Their Choice, [id number] 3 05:01:47 Referral general surgeon referral - Enlarged lymph nodes in neck and groin x8 weeks, wt loss and night sweats. please evaluate ISIS. 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 Denies smoking and excessive ETOH. Please evaluate 2021 [facility] (Records Request Only), [address] [place], [address], 3 05:01:38 Procedures None recorded. Surgeries None recorded. Imaging None recorded. Medication Orders None recorded. Patient TargetsNo targets recorded. Patient InstructionsNo instructions recorded. Reason for Referral General Surgeon Referral for Inguinal lymphadenopathy Enlarged lymph nodes in neck and groin x8 weeks, wt loss and night sweats. please evaluate ISIS. 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 Denies smoking and excessive ETOH. Please evaluate Referring Physician: Yomi Smith, Internal Medicine, Encounter Date: 07/31/2022 Results Created Date Observation Date Name Description Value Unit Range Abnormal Flag Note LastModifiedBy Organization Detail LastModifiedTime 07/31/2007/31/2022 RETIC ULOCY TE COUNT retic % 0.7 % (0.9-2 .1) low Not Available [facility] (Centralized Electronic Ordering - All Locations) Patient Can Go To The Location Of Their Choice, [id number] 07/31/2022 21:52:01 07/31/20 22 07/31/2022 RETIC ULOCY TE COUNT reticulocyte count, corrected 0.6 % (0.9-2 .1) low Not Available [facility] (Centralized Electronic Ordering - All Locations) Patient Can Go To The Location Of Their Choice, 07/31/2022 21:52:01 07/31/20 22 07/31/2022 RETIC ULOCY TE COUNT reticulocyte production index 0.6 % (1.0-2 .0) low Not Available [facility] (Centralized Electronic Ordering - All Locations) Patient Can Go To The Location Of Their Choice, [id number] 07/31/2022 21:52:01 07/31/20 22 07/31/2022 COMPL ETE CBC WITH DIFF WBC 10.0 K/mm3 (4.0-1 1.0) Not Available [facility] (Centralized Electronic Ordering - All Locations) Patient Can Go To The Location Of Their Choice, [id number] 07/31/2022 23:42:21 07/31/20 22 07/31/2022 COMPL ETE CBC WITH DIFF RBC 4.09 M/mm3 (4.70- 6.10) low Not Available [facility] (Centralized Electronic Ordering - All Locations) Patient Can Go To The Location Of Their Choice, [id number] 07/31/2022 23:42:21 07/31/20 22 07/31/2022 COMPL ETE CBC WITH DIFF HGB 13.1 gm/dL (13.7- 17.1) low Not Available [facility] (Centralized Electronic Ordering - All Locations) Patient Can Go To The Location Of Their Choice, [id number] 07/31/2022 23:42:21 07/31/20 22 07/31/2022 COMPL ETE CBC WITH DIFF HCT 40.1 % (40.5- 50.0) low Not Available [facility] (Centralized Electronic Ordering - All Locations) Patient Can Go To The Location Of Their Choice, 07/31/2022 23:42:21 07/31/2007/31/2022 COMPL ETE CBC WITH DIFF MCV 98.0 fL (80.0- 94.0) high Not Available [facility] (Centralized Electronic Ordering - All Locations) Patient Can Go To The Location Of Their Choice, 07/31/2022 23:42:21 07/31/2007/31/2022 COMPL ETE CBC WITH DIFF MCH 32.0 pg (27.0- 34.0) Not Available [facility] (Centralized Electronic Ordering - All Locations) Patient Can Go To The Location Of Their Choice, 07/31/2022 23:42:21 07/31/2007/31/2022 COMPL ETE CBC WITH DIFF MCHC 32.7 g/dL (33.0- 37.0) low Not Available [facility] (Centralized Electronic Ordering - All Locations) Patient Can Go To The Location Of Their Choice, 07/31/2022 23:42:21 07/31/2007/31/2022 COMPL ETE CBC WITH DIFF plt 246 K/mm3 (150-4 60) Not Available [facility] (Centralized Electronic Ordering - All Locations) Patient Can Go To The Location Of Their Choice, 07/31/2022 23:42:21 07/31/2007/31/2022 COMPL ETE CBC WITH DIFF RDW-SD 45.3 fL (<47.0 ) Not Available [facility] (Centralized Electronic Ordering - All Locations) Patient Can Go To The Location Of Their Choice, 07/31/2022 23:42:21 07/31/2007/31/2022 COMPL ETE CBC WITH DIFF MPV 11.4 fL (9.4-1 2.4) Not Available [facility] (Centralized Electronic Ordering - All Locations) Patient Can Go To The Location Of Their Choice, 07/31/2022 23:42:21 07/31/2007/31/2022 COMPL ETE CBC WITH DIFF automated NRBC 0.0 #/100 _WBC' s Not Available [facility] (Centralized Electronic Ordering - All Locations) Patient Can Go To The Location Of Their Choice, 07/31/2022 23:42:21 07/31/20 22 07/31/2022 COMPL ETE CBC WITH DIFF abs. NRBC 0.0 K/mm3 Not Available [facility] (Centralized Electronic Ordering - All Locations) Patient Can Go To The Location Of Their Choice, 07/31/2022 23:42:21 07/31/20 22 07/31/2022 COMPL ETE CBC WITH DIFF neut # 6.5 K/mm3 (1.3-7 .0) Not Available [facility] (Centralized Electronic Ordering - All Locations) Patient Can Go To The Location Of Their Choice, 07/31/2022 23:42:21 07/31/20 22 07/31/2022 COMPL ETE CBC WITH DIFF lymph # 2.8 K/mm3 (0.8-3 .1) Not Available [facility] (Centralized Electronic Ordering - All Locations) Patient Can Go To The Location Of Their Choice, [id number] 07/31/2022 23:42:21 07/31/20 22 07/31/2022 COMPL ETE CBC WITH DIFF mono# 0.6 K/mm3 (0.4-1 .3) Not Available [facility] (Centralized Electronic Ordering - All Locations) Patient Can Go To The Location Of Their Choice, [id number] 07/31/2022 23:42:21 07/31/20 22 07/31/2022 COMPL ETE CBC WITH DIFF eo # 0.1 K/mm3 (0.0-0 .4) Not Available [facility] (Centralized Electronic Ordering - All Locations) Patient Can Go To The Location Of Their Choice, 07/31/2022 23:42:21 07/31/20 22 07/31/2022 COMPL ETE CBC WITH DIFF baso # 0.0 K/mm3 (0.0-0 .1) Not Available [facility] (Centralized Electronic Ordering - All Locations) Patient Can Go To The Location Of Their Choice, 07/31/2022 23:42:21 07/31/20 22 07/31/2022 COMPL ETE CBC WITH DIFF neut 65.0 % (44-76 ) Not Available [facility] (Centralized Electronic Ordering - All Locations) Patient Can Go To The Location Of Their Choice, 07/31/2022 23:42:21 07/31/20 22 07/31/2022 COMPL ETE CBC WITH DIFF lymph 26.0 % (15-43 ) Not Available [facility] (Centralized Electronic Ordering - All Locations) Patient Can Go To The Location Of Their Choice, 07/31/2022 23:42:21 07/31/20 22 07/31/2022 COMPL ETE CBC WITH DIFF atypical lymphs 2.0 % (0-4) Not Available [facility] ([facility] Order[facility] - All Locations) Patient Can Go To The Location Of Their Choice, 07/31/2022 23:42:21 07/31/20 22 07/31/2022 COMPL ETE CBC WITH DIFF monocyte 6.0 % (4.5-1 0.5) Not Available [facility] (Centralized Electronic Ordering - All Locations) Patient Can Go To The Location Of Their Choice, 07/31/2022 23:42:21 07/31/20 22 07/31/2022 COMPL ETE CBC WITH DIFF eo 1.0 % (0-6) Not Available [facility] (Centralized Electronic Ordering - All Locations) Patient Can Go To The Location Of Their Choice, 07/31/2022 23:42:21 07/31/20 22 07/31/2022 COMPL ETE CBC WITH DIFF baso 0.0 % (0-2) Not Available [facility] (Centralized Electronic Ordering - All Locations) Patient Can Go To The Location Of Their Choice, 07/31/2022 23:42:21 07/31/20 22 07/31/2022 COMPL ETE CBC WITH DIFF WBC morphology FEW SMUDG E CELLS Not Available [facility] (Centralized Electronic Ordering - All Locations) Patient Can Go To The Location Of Their Choice, 07/31/2022 23:42:21 07/31/2007/31/2022 COMPL ETE CBC WITH DIFF plt estimate ADEQUA TE Not Available [facility] (Centralized Electronic Ordering - All Locations) Patient Can Go To The Location Of Their Choice, 07/31/2022 23:42:21 07/31/20 22 08/01/2022 COMPR EHENS JENSIE METAB OLIC PANL glucose 94 mg/dL (70-99 ) Not Available [facility] (Centralized Electronic Ordering - All Locations) Patient Can Go To The Location Of Their Choice, 08/01/2022 00:46:27 07/31/2008/01/2022 COMPR EHENS JENISE METAB OLIC PANL BUN 13 mg/dL (8-23) Not Available [facility] (Centralized Electronic Ordering - All Locations) Patient Can Go To The Location Of Their Choice, 08/01/2022 00:46:27 07/31/2008/01/2022 COMPR EHENS JENISE METAB OLIC PANL creatinine 1.1 mg/dL (0.7-1 .2) Not Available [facility] (Centralized Electronic Ordering - All Locations) Patient Can Go To The Location Of Their Choice, 08/01/2022 00:46:27 07/31/2008/01/2022 COMPR EHENS JENISE METAB OLIC PANL sodium 140 mmol/ L (133-1 45) Not Available [facility] (Centralized Electronic Ordering - All Locations) Patient Can Go To The Location Of Their Choice, 08/01/2022 00:46:27 07/31/2008/01/2022 COMPR EHENS JENISE METAB OLIC PANL potassium 5.0 mmol/ L (3.6-5 .2) Not Available [facility] (Centralized Electronic Ordering - All Locations) Patient Can Go To The Location Of Their Choice, 08/01/2022 00:46:27 07/31/2008/01/2022 COMPR EHENS JENISE METAB OLIC PANL chloride 101 mmol/ L (98-10 7) Not Available [facility] (Centralized Electronic Ordering - All Locations) Patient Can Go To The Location Of Their Choice, 08/01/2022 00:46:27 07/31/2008/01/2022 COMPR EHENS JENISE METAB OLIC PANL bicarbonate 27 mmol/ L (22-29 ) Not Available [facility] (Centralized Electronic Ordering - All Locations) Patient Can Go To The Location Of Their Choice, 08/01/2022 00:46:27 07/31/2008/01/2022 COMPR EHENS JENISE METAB OLIC PANL anion gap 12 (4-17) Not Available [facility] (Centralized Electronic Ordering - All Locations) Patient Can Go To The Location Of Their Choice, 08/01/2022 00:46:27 07/31/2008/01/2022 COMPR EHENS JENISE METAB OLIC PANL albumin 4.9 gm/dL (3.4-4 .8) high Not Available [facility] (Centralized Electronic Ordering - All Locations) Patient Can Go To The Location Of Their Choice, 08/01/2022 00:46:27 07/31/2008/01/2022 COMPR EHENS JENISE METAB OLIC PANL calcium 9.3 mg/dL (8.6-1 0.5) Not Available [facility] (Centralized Electronic Ordering - All Locations) Patient Can Go To The Location Of Their Choice, 08/01/2022 00:46:27 07/31/2008/01/2022 COMPR EHENS JENISE METAB OLIC PANL bilirubin,to natalee 1.0 mg/dL (0-1.2 ) Not Available [facility] (Centralized Electronic Ordering - All Locations) Patient Can Go To The Location Of Their Choice, 08/01/2022 00:46:27 07/31/2008/01/2022 COMPR EHENS JENISE METAB OLIC PANL total protein 6.8 gm/dL (6.2-8 .2) Not Available [facility] (Centralized Electronic Ordering - All Locations) Patient Can Go To The Location Of Their Choice, 08/01/2022 00:46:27 07/31/2008/01/2022 COMPR EHENS JENISE METAB OLIC PANL Ag ratio 2.6 Not Available [facility] (Centralized Electronic Ordering - All Locations) Patient Can Go To The Location Of Their Choice, 08/01/2022 00:46:27 07/31/2008/01/2022 COMPR EHENS JENISE METAB OLIC PANL AST 27 U/L (0-40) Not Available [facility] (Centralized Electronic Ordering - All Locations) Patient Can Go To The Location Of Their Choice, 08/01/2022 00:46:27 07/31/2008/01/2022 COMPR EHENS JENISE METAB OLIC PANL alk phos 51 U/L (40-12 9) Not Available [facility] (Centralized Electronic Ordering - All Locations) Patient Can Go To The Location Of Their Choice, 08/01/2022 00:46:27 07/31/2008/0108/01/2022 COMPR EHENS JENISE METAB OLIC PANL ALT 21 U/L (0-41) Not Available [facility] (Centralized Electronic Ordering - All Locations) Patient Can Go To The Location Of Their Choice, 08/01/2022 00:46:27 07/31/2008/01/2022 COMPR EHENS JENISE METAB OLIC PANL estimated GFR creatinine 76 mL/mi n/1.7 3_M2 Creat inine based estim ated glome rular filtr ation (eGFR ) in adult s is calcu lated using the Natio nal Kidne y Found ation recom kary d 2020 CKD-E PI equat ion. Estim ates GFR from serum creat inine , age and sex. Not Available [facility] (Centralized Electronic Ordering - All Locations) Patient Can Go To The Location Of Their Choice, 08/01/2022 00:46:27 07/31/2008/01/2022 IRON & TIBC iron 131 mcg/d L (45-16 0) Not Available [facility] (Centralized Electronic Ordering - All Locations) Patient Can Go To The Location Of Their Choice, 08/01/2022 00:46:28 07/31/2008/01/2022 IRON & TIBC unsaturated iron binding capac 134 mcg/d L (110-3 70) Not Available [facility] (Centralized Electronic Ordering - All Locations) Patient Can Go To The Location Of Their Choice, 08/01/2022 00:46:28 07/31/2008/01/2022 IRON & TIBC est T. iron bind capacity 265 mcg/d L (155-5 30) Not Available [facility] (Centralized Electronic Ordering - All Locations) Patient Can Go To The Location Of Their Choice, 08/01/2022 00:46:28 07/31/2008/01/2022 IRON & TIBC % iron saturation 49 % (20-55 ) Not Available [facility] (Centralized Electronic Ordering - All Locations) Patient Can Go To The Location Of Their Choice, 08/01/2022 00:46:28 07/31/2008/01/2022 VITAM IN B12 vitamin B12 428 pg/mL (232-1 245) Not Available [facility] (Centralized Electronic Ordering - All Locations) Patient Can Go To The Location Of Their Choice, [id number] 08/01/2022 01:10:27 07/31/2008/01/2022 CHARBEL TIN ferritin 227 NG/mL (16-29 4) Not Available [facility] (Centralized Electronic Ordering - All Locations) Patient Can Go To The Location Of Their Choice, [id number] 08/01/2022 01:10:28 07/31/2008/01/2022 FOLIC ACID folic acid 7.5 NG/mL (4.5-3 2.2) Not Available [facility] ([facility]ized Electronic Ordering - All Locations) Patient Can Go To The Location Of Their Choice, [id number] 08/01/2022 01:10:29 07/31/2008/01/2022 TSH WITH REFLE X TO FT4 TSH 3.59 uIU/m L (0.4-4 .2) Not Available [facility] (Centralized Electronic Ordering - All Locations) Patient Can Go To The Location Of Their Choice, [id number] 08/01/2022 01:10:30 07/31/20 22 08/01/2022 25OH VITAM IN D 25OH vitamin D 25.5 NG/mL (20-50 ) Not Available [facility] ([facility]ized [facility] Ordering - All Locations) Patient Can Go To The Location Of Their Choice, [id number] 08/01/2022 01:10:31 Result Notes None recorded. Medical Equipment None Reported. Allergies No known drug allergies Medications Name Sig Start Date Stop Date Status Note LastModified by Organization Details LastModified Time Flowflex COVID-19 Antigen Home Test kit USE DIRECTED active Not Available Not Available No t Available Vitals Date Recorded Body weight Body mass index (BMI) Body height Provider Name and Address Organization Details Last Updated DateTime 07/31/2022 99453.19 g 22.2 kg/m2 180.34 cm Yomi Smith DO [address], [place], [address], [place] - [facility] 07/31/2022 12:11:03 Social History Question Answer Notes LastModified by Organizat ion Details LastModified Time Tobacco Smoking Status Never Smoker Yomi Smith DO [address], [place], [address], [place] - [facility] 07/31/2022 12:26:03 What Is Your Level Of Caffeine Consumption? Occasional Information not available 07/31/2022 What Type Of Diet Are You Following? REGULAR Information not available 07/31/2022 What Is The Highest Grade Or Level Of School You Have Completed Or The Highest Degree You Have Received? [id number] Information not available 07/31/2022 How Many Children Do You Have? 2 Information not available 07/31/2022 What Is Your Relationship Status? Information not available 07/31/2022 Sex: Unknown Functional Status Question Answer Note LastModified by Organizat ion Details LastModified Time Do you use any illicit or recreational drugs? No Information not available 07/31/2022 What is your level of alcohol consumption? 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 Yes Information not available 07/31/2022 What is your exercise level? Moderate resistance band /walk Information not available 07/31/2022 Mental Status Question Answer Note LastModified by Organizat ion Details LastModified Time Do you feel stressed (tense, restless, nervous, or anxious, or unable to sleep at night)? [id number] feels more anxious now with his physical ailments. sleep is inturrupted by frequent urniation at night panic attack in his 40s Information not available 07/31/2022 Family History Relationship Description Onset Age of this Age Resolved Age Notes LastModified by Organization Details LastModified Time Father Malignant neoplasm of colon 70 Not available 07/31 12:21:12 Father Diabetes mellitus Not available 07/31 12:21:48 Brother Diabetes mellitus Not available 07/31 12:21:34 Medical History No medical history recorded. Past Encounters Encounter ID Performer Location Encounter Start Date Encounter Closed Date Diagnosis/Indication Diagnosis SNOMED-CT Code Diagnosis ICD10 Code Diagnosis IMO Codes Diagnosis Note [id number] Yomi Smith DO MAIN OFFICE [address] [place] [address] 07/31/2022 11:57:39 08/01/2022 14:34:30 Inguinal lymphadenopathy 872422996 R59.0 Diffused lymphadeno shayna in neck and groin.firs t he noted lymph node in neck in after COVID started having diffused LAD in neck and groinRepor ts wt loss and night sweats.Carlyle l obtain labs.Refer ral to surgery for biopsy.Pt seems anxious offered anxiolytic but pt refused. 08/01/22 labs were obtained that showed low retic count and smudge cells suggestive of lymphoma. [facility] in [place] for further eval. Appropriat e referral will be placed when pt gets accepted by [facility]. 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 Suspicious for IBD.Recomm ended probiotics +collagen+ healthy foods+low sugar diet.Refer ral for GI if no improvemen t. Generalize d anxiety disorder [id number] F41.1 offered medication since he seems overwhelme d with potential diagnosis but he refused.la bs as below. 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 Referred to ENT for possible biopsy. Osteoarthritis of hip 23 [id number] M16.9 ChronicHe has refused surgery and developed R leg atrophy.Ad vised anti-infla mmatory diet (no gluten or alcoholic, start probiotic, collagen, and turmeric) Health Concerns Section Related Observation LastModified by Organization Detai ls LastModified Time None Recorded Concern Status LastModified by Organization Details LastModified Time None Recorded Advance Directives Directive None Recorded Payers Insurance Date Sequence Insurance Name Policy Number Policy Sauer Covered Member ID Sauer Member ID Guarantor Name 07/31/2022 1 [place]MED[place]ARE [place]AC[place] PPO) [id number] Amauri Benjamin [id number] Amauri Benjamin 07/31/2022 2 [place] [employer] Amauri Benjamin [id number] Amauri Benjamin Notes Date Note Type Note Provider Name and Address Organization Details Recorded Time 07/31/2022 text/html ROS as noted in the HPI Got COVID in jun 05 and after 2 weeks noted to have groin LAD which cont to persist.he is having leukopenic changes under his tongue since then as well. He feels it is slowly improving but LAD has not changed.He admits to being very anxious but does not want to start med at this time.Reports wt loss but is not sure how much.Has had some night sweats but less now.Has had hip OA in Right hip. He refused surgery 6 years ago. and as result has developed atrophy of R leg musclesno N/V/D. Has occasional loose stool and bloating. No blood in stool, no melena. Yomi Smith, DO [address] [facility] [address], [place], [address], [place] - [facility] 08/01/2022 09:42:10
--- OUTSIDE RECORDS SUMMARY | 2025-08-04 08:13 | XMS_ITS | Patient Health Record ---
Author Organization [facility] Address [address] [place] [address] Care Team Providers Care Doughnut Dough Mixer Name Role Phone EMANUEL TOMAS Primary Care Provider Dany Serrano [phone] Allergies Allergen (clinical drug ingredient) Drug/Non Drug Allergy documented on EMR Reaction Allergy Type Onset Date Status erythromycin Erythromycin Unknown Drug Allergy A ctive Penicillin Unknown Drug Allergy Active Reason For Referral No Information Immunizations Vaccine Route Administration Date Status Comme nts Influenza Unknown 05/15/2020 Administered Social History Social History Additional Details Category Social Info Options Details Miscellaneous: Marital status: 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 wine Nonsmoker; occ. wine Problems Problem Type SNOMED Code ICD Code Onset Dates Problem Status W/U Status Risk Notes Problem Screening for malignant neoplasm of colon (095192169) Encounter for screening for malignant neoplasm of colon (Z12.11) Active confirmed Problem History of adenomatous polyp of colon (246138506) History of adenomatous polyp of colon (Z86.010) Active confirmed Problem Screening for malignant neoplasm of rectum (794196576) Encounter for screening for malignant neoplasm of rectum (Z12.12) Active confirmed Problem Preprocedural examination (034280604222365) Preprocedural examination (Z01.818) Active confirmed Problem Diverticulosis of colon (399373700) Diverticulosis of colon (K57.30) Active confirmed Plan Of Treatment Future Test Test Name Order Date COLONOSCOPY 12/14/2015 COLONOSCOPY 05/23/2021 Insurance Providers Payer Name Payer Address Payer Phone Subscriber Number Group Number Insured Name Patient Relationship to Insured Coverage Start Date Coverage End Date [facility] [address] [place] [address] [id number] LIZANDRO ORTIZ Self - patient is the insured Medical (General) History Medical History History ICD Code Denies LA,DM,CVA,Lung disease,renal dise ase Colonoscopy with removal of 2 small tubular adenomas in 2000--he had a negative colonoscopy in 2005 and in January of 2011, other than some mild sigmoid diverticulosis. Negative colonoscopy in 02/2016. Surgical History Surgery Date(Month/Year) knee surgery x2 hernia repair
--- OUTSIDE RECORDS SUMMARY | 2025-08-04 08:13 | XMS_ITS | Encounter Summary ---
Author Organization [facility] Address [address] [place] [address] Phone Care Team Providers Care Leaf Sticker Name Role Phone Dano Montes DO Primary Care Provider [phone] Yomi Smith DO Primary Care Provider [phone] Yomi Smith DO Unavailable [phone] Jesse Weinstein MD Unavailable Kaelyn Zamora SKIVER COUNTER Unavailable + Polina Conroy BRAKER PASSENGER TRAIN Unavailable [phone] Jeremie Ivey NP Primary Care Provider + Encounter Details Date Type Department Care Team (Late st Contact Info) Description 08/11/2017 Ancillary Orders [facility] Medical [facility] [address] [place] [address] Tanvir Trammell DO [address] [place] [address] [facility] [place] [address] [email or web address] Social History Tobacco Use Types Packs/Day Years [...] 10:10 AM EST Blood [facility], [address], 2nd [place] [address] Jesse Weinstein MD [address] [place] [address] [email or web address] 11/16/2025 11:00 AM EST Office Visit [facility], Division of Hematologic Oncology, [address], 7th [place] [address] Jesse Weinstein MD [address] [place] [address] [email or web address]@[email or web address] documented as of this encounter Visit Diagnoses Not on filedocumented in this encounter Additional Health Concerns Infection Onset Date Last Indicated Resolved Time COVID-19 Comment:Per Note Documentation 07/12/2024 07/11/2024 10:32 AM EST documented as of this encounter Care Teams Leaf Sticker Relationship Specialty Start Date End Date Dano Montes DO PCP - General Family Medicine 07/16/17 07/31/22 Yomi Smith DO [address] [place] [address], [address] [place] [address] [email or web address] PCP - General Internal Medicine 08/01/22 11/25/22 Jeremie Ivey NP [address] [place] [address] [address] [place] [address] PCP - General Nurse Practitioner 11/26/22 Yomi Smith DO [address] [place] [address], [address] [place] [address] [email or web address] Internal Medicine 08/11/22 Jesse Weinstein MD [address] [place] [address] [email or web address] Primary Oncologist Medical Oncology 08/20/22 Kaelyn Zamora CNP [address] [place] [address] [email or web address] Nurse Practitioner Medical Oncology 08/20/22 Polina Conroy, BRAKER PASSENGER TRAIN [address] [place] [address] [email or web address]@[facility] Pharmacy Scheduler Oncology 09/11/22 documented as of this encounter Additional Source Comments The information contained in this document represents components of the legal health record. It is not the complete legal health record.[facility]
--- OUTSIDE RECORDS SUMMARY | 2025-08-04 08:13 | XMS_ITS | Encounter Summary ---
Author Organization [facility] Address [address] [place] [address] Phone Care Team Providers Care Sand Cleaning Machine Operator Name Role Phone Yomi Smith DO Unavailable [phone] Jesse Weinstein MD Unavailable Kaelyn Zamora LEASING COORDINATOR Unavailable + Polina Conroy LEATHER WORKER Unavailable [phone] Jeremie Ivey DIRECTOR OF REVENUE Primary Care Provider + Encounter Details Date Type Department Care Team (Late st Contact Info) Description 08/31/2023 Documentation [facility], Division of Hematologic Oncology, [facility] [address] [facility], 7th [place] [address] Sasha Ventura, RN [address] [facility] [place] [address] [email or web address] Social History Tobacco Use Types Packs/Day Years [...] 10:10 AM EST Blood Draw Laboratory Services, [address], 2nd [place] [address] Jesse Weinstein MD [address] [place] [address] [email or web address] 11/16/2025 11:00 AM EST Office Visit [facility], Division of Hematologic Oncology, [address], 7th [place] [address] Jesse Weinstein MD [address] [place] [address] [email or web address] documented as of this encounter Visit Diagnoses Not on filedocumented in this encounter Additional Health Concerns Infection Onset Date Last Indicated Resolved Time COVID-19 Comment:Per Note Documentation 07/12/2024 07/11/2024 12/16/202 4 10:32 AM EST documented as of this encounter Care Teams Sand Cleaning Machine Operator Relationship Specialty Start Date End Date Jeremie Ivey NP [facility] [place] [address] PCP - General Nurse Practitioner 11/26/22 Yomi Smith DO [address] [place] [address], [address] [place] [address] [email or web address] Internal Medicine 08/11/22 Jesse Weinstein MD [address] [place] [address] [email or web address] Primary Oncologist Medical Oncology 08/20/22 Kaelyn Zamora CNP [address] [place] [address] [email or web address] Nurse Practitioner Medical Oncology 08/20/22 Polina Conroy, [address] [address] [email or web address]@[email or web address] Still Operator Helper Oncology 09/11/22 documented as of this encounter Additional Source Comments The information contained in this document represents components of the legal health record. It is not the complete legal health record.[facility]
--- OUTSIDE RECORDS SUMMARY | 2025-08-04 08:13 | XMS_ITS | Encounter Summary ---
Author Organization [facility] Address [address] [facility] [address] [place] [address] Phone Care Team Providers Care Fire Claims Adjuster Name Role Phone Yomi Smith DO Primary Care Provider Yomi Smith DO Unavailable [phone] Jesse Weinstein MD Unavailable Kaelyn Zamora SCRAP WORKER Unavailable + Polina Conroy ENVIRONMENTAL HEALTH PHYSICIAN Unavailable [phone] Jeremie Ivey INFORMATION OPERATOR Primary Care Provider + Encounter Details Date Type Department Care Team (Late st Contact Info) Description 09/01/2022 Procedure Pass Rosalind Lank Imaging Department, [facility] [place] [address] [facility], Floor [address]1 [place] [address] Social History Tobacco Use Types Packs/Day Years [...] 10:10 AM EST Blood Draw Laboratory Services, [facility] [address] [facility], 2nd [place] [address] Jesse Weinstein MD [address] [place] [address] [email or web address] 11/16/2025 11:00 AM EST Office Visit [facility], Division of Hematologic Oncology, [address], 7th [place] [address] Jesse Weinstein MD [address] [place] [address] Florence@[email or web address] documented as of this encounter Visit Diagnoses Not on filedocumented in this encounter Additional Health Concerns Infection Onset Date Last Indicated Resolved Time COVID-19 Comment:Per Note Documentation 07/12/2024 07/11/2024 10:32 AM EST documented as of this encounter Care Teams Fire Claims Adjuster Relationship Specialty Start Date End Date Yomi Smith DO [address] [place] [address], [facility] 20 [place] [address] [email or web address] PCP - General Internal Medicine 08/01/22 11/25/22 Jeremie Ivey NP [facility] [place] [address] PCP - General Nurse Practitioner 11/26/22 Yomi Smith DO [address] [place] [address], [address] [place] [address] [email or web address] Internal Medicine 08/11/22 Jesse Weinstein MD [address] [place] [address] [email or web address] Primary Oncologist Medical Oncology 08/20/22 Kaelyn Zamora CNP [address] [place] [address] [email or web address] Nurse Practitioner Medical Oncology 08/20/22 Polina Conroy, [address] [address] [email or web address]@[email or web address] Uniform Designer Oncology 09/11/22 documented as of this encounter Additional Source Comments The information contained in this document represents components of the legal health record. It is not the complete legal health record.[facility]
--- OUTSIDE RECORDS SUMMARY | 2025-08-04 08:13 | XMS_ITS | Encounter Summary ---
Author Organization [facility] Address [address] [facility] [address] [place] [address] Phone Care Team Providers Care Manager Database Name Role Phone Yomi Smith DO Primary Care Provider Yomi Smith DO Unavailable [phone] Jesse Weinstein MD Unavailable Kaelyn Zamora DIRECTOR OF PATIENT SAFETY Unavailable + Polina Conroy DATA COLLECTION TECHNICIAN Unavailable [phone] Jeremie Ivey [employer] Primary Care Provider + Encounter Details Date Type Department Care Team (Late st Contact Info) Description 08/04/2022 Procedure Pass [facility] Cardiovascular And Interventional Radiology 30 [place] [address] Social History Tobacco Use Types Packs/Day Years [...] 10:10 AM EST Blood Draw Laboratory Services, [facility] [address] [place] [address], 2nd [place] [address] Jesse Weinstein MD [address] [address] [email or web address] 11/16/2025 11:00 AM EST Office Visit [facility], Division of Hematologic Oncology, [facility] [facility] [address] [facility], 7th [place] [address] Jesse Weinstein MD [address] [place] [address] [email or web address] documented as of this encounter Visit Diagnoses Not on filedocumented in this encounter Additional Health Concerns Infection Onset Date Last Indicated Resolved Time COVID-19 Comment:Per Note Documentation 07/12/2024 07/11/2024 10:32 AM EST documented as of this encounter Care Teams Manager Database Relationship Specialty Start Date End Date Yomi Smith DO [address] [place] [address], [address] [place] [address] [email or web address] PCP - General Internal Medicine 08/01/22 11/25/22 Jeremie Ivey, ALIZA [facility] [place] [facility] [address] [place] [address] PCP - General Nurse Practitioner 11/26/22 Yomi Smith DO [address] [place] [address], [address] [place] [address] [email or web address] Internal Medicine 08/11/22 Jesse Weinstein MD [address] [place] [address] [email or web address] Primary Oncologist Medical Oncology 08/20/22 Kaelyn Zamora CNP [address] [place] [address] [email or web address] Nurse Practitioner Medical Oncology 08/20/22 Polina Conroy, [address] [address] Vinayak@[email or web address] Manufacturing Design Engineer Oncology 09/11/22 documented as of this encounter Additional Source Comments The information contained in this document represents components of the legal health record. It is not the complete legal health record.[facility]
--- OUTSIDE RECORDS SUMMARY | 2025-08-04 08:13 | XMS_ITS | Encounter Summary ---
Author Organization [facility] Address [address] [facility] [address] [place] [address] Phone Care Team Providers Care Recruiting Assistant Name Role Phone Yomi Smith DO Primary Care Provider Yomi Smith DO Unavailable [phone] Jesse Weinstein MD Unavailable aKelyn Zamora MARKETING WRITER Unavailable + Polina Conroy EMISSIONS TESTING AND REPAIR TECHNICIAN Unavailable [phone] Jeremie Ivey ENHANCED ENVIRONMENTAL OPERATOR Primary Care Provider + Encounter Details Date Type Department Care Team (Late st Contact Info) Description 11/14/2022 Telephone [facility] Angio Interventional Radiology [address] [place] [address] Amauri Mckeon, RN 45 [place] [phone] [email or web address] Social History Tobacco Use Types Packs/Day Years [...] 10:10 AM EST Blood Draw Laboratory Services, [facility] [address] [facility], 2nd [place] [address] Jesse Weinstein MD [address] [place] [address] [email or web address] 11/16/2025 11:00 AM EST Office Visit [facility], Division of Hematologic Oncology, [address], 7th [place] [address] Jesse Weinstein MD [address] [place] [address] [email or web address]@[email or web address] documented as of this encounter Visit Diagnoses Not on filedocumented in this encounter Additional Health Concerns Infection Onset Date Last Indicated Resolved Time COVID-19 Comment:Per Note Documentation 07/12/2024 07/11/2024 10:32 AM EST documented as of this encounter Care Teams Recruiting Assistant Relationship Specialty Start Date End Date Yomi Smith DO [address] [place] [address], [address] [address] PCP - General Internal Medicine 08/01/22 11/25/22 Jeremie Ivey NP [facility] [place] [place] [address] PCP - General Nurse Practitioner 11/26/22 Yomi Smith DO [address] [place] [address], [address] [place] [address] Internal Medicine 08/11/22 Jesse Weinstein MD [address] [place] [address] [email or web address] Primary Oncologist Medical Oncology 08/20/22 Kaelyn Zamora CNP [address] [place] [address] [email or web address] Nurse Practitioner Medical Oncology 08/20/22 Polina Conroy, [address] [address] [email or web address]@[email or web address] State Game Warden Oncology 09/11/22 documented as of this encounter Additional Source Comments The information contained in this document represents components of the legal health record. It is not the complete legal health record.[facility]
--- OUTSIDE RECORDS SUMMARY | 2025-08-04 08:13 | XMS_ITS | Encounter Summary ---
Author Organization [facility] Address [address] [facility] [address] [place] [address] Phone Care Team Providers Care Hand Counter Name Role Phone Yomi Smith DO Primary Care Provider Yomi Smith DO Unavailable [phone] Jesse Weinsetin MD Unavailable Kaelyn Zamora GRAIN OILSEED OR PASTURE FARM MANAGER Unavailable + Polina Conroy [employer] ADMINISTRATOR Unavailable [phone] Jeremie Ivey STRINGED INSTRUMENT REPAIRER Primary Care Provider + Encounter Details Date Type Department Care Team (Late st Contact Info) Description 08/04/2022 Procedure Pass [facility] Cardiovascular And Interventional Radiology 30 [place] [address] Social History Tobacco Use Types Packs/Day Years [...] EST Blood Draw Laboratory Services, [facility] [place] [address] [place] [address], 2nd [place] [address] Jesse Weinstein MD [address] [address] [email or web address] 11/16/2025 11:00 AM EST Office Visit [facility] for [facility], Division of Hematologic Oncology, [facility] [place] [address] [facility], 7th [place] [address] Jesse Weinstein MD [address] [place] [address] Florence@[facility] documented as of this encounter Visit Diagnoses Not on filedocumented in this encounter Additional Health Concerns Infection Onset Date Last Indicated Resolved Time COVID-19 Comment:Per Note Documentation 07/12/2024 07/11/2024 10:32 AM EST documented as of this encounter Care Teams Hand Counter Relationship Specialty Start Date End Date Yomi Smith DO [address] [place] [address], [address] [place] [address] [email or web address] PCP - General Internal Medicine 08/01/22 11/25/22 Jeremie Ivey, ALIZA [facility] [address] [place] [address] PCP - General Nurse Practitioner 11/26/22 Yomi Smith DO [address] [place] [address], [address] [place] [address] [email or web address] Internal Medicine 08/11/22 Jesse Weinstein MD [address] [place] [address] [email or web address] Primary Oncologist Medical Oncology 08/20/22 Kaelyn Zamora CNP [address] [place] [address] [email or web address] Nurse Practitioner Medical Oncology 08/20/22 Polina Conroy, [address] [address] [email or web address] Inside Sales Representative Oncology 09/11/22 documented as of this encounter Additional Source Comments The information contained in this document represents components of the legal health record. It is not the complete legal health record.[facility]
--- OUTSIDE RECORDS SUMMARY | 2025-08-04 08:13 | XMS_ITS | Encounter Summary ---
Author Organization [facility] Address [address] [facility] [address] [place] [address] Phone Care Team Providers Care Clinical Program Manager Name Role Phone Yomi Smith DO Primary Care Provider Yomi Smith DO Unavailable [phone] Jesse Weinstein MD Unavailable Kaelyn Zamora GARDE MANAGER Unavailable + Polina Conroy CHEMICAL LABORATORY SCIENTIST Unavailable [phone] Jeremie Ivey TIP LENGTH CHECKER Primary Care Provider + Encounter Details Date Type Department Care Team (Late st Contact Info) Description 09/19/2022 Procedure Pass Rosalind Lank Imaging Department, [facility] [place], [place] [address] [facility], Floor [address]1 [place] [address] Social History Tobacco Use Types Packs/Day Years [...] 10:10 AM EST Blood Draw Laboratory Services, [facility] [address] [facility], 2nd [place] [address] Jesse Weinstein MD [address] [place] [address] Florence@[facility] 11/16/2025 11:00 AM EST Office Visit [facility] for [facility], Division of Hematologic Oncology, [address], 7th [place] [address] Jesse Weinstein MD [address] [place] [address] [email or web address]@[facility] documented as of this encounter Visit Diagnoses Not on filedocumented in this encounter Additional Health Concerns Infection Onset Date Last Indicated Resolved Time COVID-19 Comment:Per Note Documentation 07/12/2024 07/11/2024 10:32 AM EST documented as of this encounter Care Teams Clinical Program Manager Relationship Specialty Start Date End Date Yomi Smith DO [address] [place] [address], [facility] 20 [place] [address] [email or web address] PCP - General Internal Medicine 08/01/22 11/25/22 Jeremie Ivey NP [facility] [place] [address] PCP - General Nurse Practitioner 11/26/22 Yomi Smith DO [address] [place] [address], [address] [place] [address] [email or web address] Internal Medicine 08/11/22 Jesse Weinstein MD [address] [place] [address] [email or web address] Primary Oncologist Medical Oncology 08/20/22 Kaelyn Zamora CNP [address] [place] [address] [email or web address] Nurse Practitioner Medical Oncology 08/20/22 Polina Conroy, [address] [address] [email or web address]@[facility] Health Service Coordinator Oncology 09/11/22 documented as of this encounter Additional Source Comments The information contained in this document represents components of the legal health record. It is not the complete legal health record.[facility]
--- OUTSIDE RECORDS SUMMARY | 2025-08-04 08:13 | XMS_ITS ---
Author Organization Located Within [facility] Address [address] [place] [address] Phone Care Team Providers Care Cable Assembler And Swager Name Role Phone Yomi Smith DO Unavailable [phone] Jesse Weinstein MD Unavailable Kaelyn Zamora BAIL BOND AGENT Unavailable + Polina ConroySW Unavailable [phone] Jeremie Ivey MATERIALS INTERN Primary Care Provider + Active Problems Problem Noted Date Diagnosed Date S/P total right hip arthroplasty 03/03/2023 Chronic health problem 11/26/2022 Assessment & Plan (11/27/2022 12:08 PM EDT): SECONDARY #Right Hip Pain Planning for hip replacement in February 2023. Patient is aware he will need to hold acalabrutinib 7 days prior to and 7 days post procedure to minimize bleeding risk. 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 Now admitted for protocol 22-303 with Arm A: Acalabrutinib BID and ramp up Venetoclax. Arm A: Acalabrutinib starting with C1, Recently admitted for C3 to start Venetoclax ramp up. Received 20 mg PO days 1-7 (day 7=11/26), which was complicated by mild hyperkalemia (managed with fluids, lasix and x1 dose of lokelma). Now admitted for dose escalation to 50mg daily starting 11/27. (might be admitted for further weekly escalations to 100mg, 200mg, 400mg) PI: Antonio Westbrook MD; Primary Onc: Dr. Jesse Weinstein -- IVF to start on night of admission, 250cc/hr after Adrien for 8 hours per TP, plan to decrease to 100-150 after 8 hours -- Predose Venetoclax labs within 24 hours prior to dosing. Post dose TLS Labs 4,8,12 and 24 hours (ordered) -- discharge after 24 hours hours if TLS labs stable, may be re-admitted for future dose escalations. -- patient should be admitted with starter pack and should bring ID-Acal. -- Continue acylovir ppx, hold Bactrim w/ TLS risk (resume at d/c), continue Uloric 40mg daily Assessment & Plan (11/20/2022 10:05 AM EST): ACTIVE Originally diagnosed with SLL 08/04/22 (U-IGHV, del 11q, SF3B1 mutation) based on R inguinal LN biopsy. Now admitted for Protocol 22-303 on Arm A: Acalabrutinib BID and ramp up Venetoclax. Started Acalabrutinib C1 outpatient. Allopurinol transitioned to Uloric CARDIAC MONITOR due to rash. Now admitted for C3 to start Venetoclax ramp up. Will receive 20 mg PO days 1-7. Possible admission for future dose escalations. (50mg, 100mg, 200mg, 400mg weekly escalations). PI: Antonio Westbrook MD; Primary Onc; Dr Weinstein -- TLS Labs 4,8,12 and 24 hours (ordered) -- Discharge after 24 hours hours if TLS labs stable, may be re-admitted for future dose escalations. -- Acyclovir, Bactrim ppx -- Uloric 40mg daily (no allopurinol to due to rash) -- Continue D3, Vitamin B12, Folic Acid -- Scheduled to follow-up on 11/26 -- Discharge with PICC line; per clinic note, plan to keep through first two weeks of ramp ups then can remove if patient stable Right hip pain 08/10/2017 Assessment & Plan (11/19/2022 5:14 PM EST): SECONDARY Osteoarthritis of R hip. Established care with Dr. Vines for consideration of R total hip replacement, timing to be determined. Current Treatment and Therapy Plans ARM A* Plan Start Date:09/22/2022 Plan Provider:Jesse Weinstein MD Linked Problems Small lymphocytic lymphoma Treatment Medications ID-acalabrutinib ()ID- acalabrutinib <CALQUENCE> ()ID-venetoclax () Past Treatment and Therapy Plans RESEARCH PLAN Plan Name Start Date Discontinue Date Treatment Medications Discontinue Reason Plan Provider Cycles ARM A 09/22/2022 09/22/2022 ID-acalabrutini b <CALQUENCE> ()ID-vene toclax () m. Entered in error Jesse Weinstein MD Treatment not started
--- OUTSIDE RECORDS SUMMARY | 2025-08-04 08:13 | XMS_ITS | Encounter Summary ---
Author Organization [facility] Address [address] [facility] [address] [place] [address] Phone Care Team Providers Care Yam Curer Name Role Phone Yomi Smith DO Primary Care Provider [phone] Yomi Smith DO Unavailable [phone] Jesse Weinstein MD Unavailable Kaelyn Zamora FRUIT OR NUT GROWER Unavailable + Polina Conroy SETTER JUICE PACKAGING MACHINES Unavailable [phone] Jeremie Ivey TEXTILE SUPERVISOR Primary Care Provider + Encounter Details Date Type Department Care Team (Late st Contact Info) Description 09/19/2022 Procedure Pass Rosalind Lank Imaging Department, [facility] [place], [place] [address] [facility], Floor [address]1 [place] [address] Social History Tobacco Use Types Packs/Day Years [...] 10:10 AM EST Blood Draw Laboratory Services, [facility] [address] [facility], 2nd [place] [address] Jesse Weinstein MD [address] [place] [address] [email or web address] 11/16/2025 11:00 AM EST Office Visit [facility], Division of Hematologic Oncology, [address], 7th [place] [address] Jesse Weinsteni MD [address] [place] [address] [email or web address] documented as of this encounter Visit Diagnoses Not on filedocumented in this encounter Additional Health Concerns Infection Onset Date Last Indicated Resolved Time COVID-19 Comment:Per Note Documentation 07/12/2024 07/11/2024 10:32 AM EST documented as of this encounter Care Teams Yam Curer Relationship Specialty Start Date End Date Yomi Smith DO [address] [place] [address], [facility] [address] [place] [address] [email or web address] PCP - General Internal Medicine 08/01/22 11/25/22 Jeremie Ivey NP [facility] [place] [address] PCP - General Nurse Practitioner 11/26/22 Yomi Smith DO [address] [place] [address], [address] [place] [address] [email or web address] Internal Medicine 08/11/22 Jesse Weinstein MD [address] [place] [address] [email or web address] Primary Oncologist Medical Oncology 08/20/22 Kaelyn Zamora CNP [address] [place] [address] [email or web address] Nurse Practitioner Medical Oncology 08/20/22 Polina Conroy, [address] [address] [email or web address] Pipeline Systems Operator Oncology 09/11/22 documented as of this encounter Additional Source Comments The information contained in this document represents components of the legal health record. It is not the complete legal health record.[facility]
--- OUTSIDE RECORDS SUMMARY | 2025-08-04 08:13 | XMS_ITS | Encounter Summary ---
Author Organization [facility] Address [address] [place] [address] Phone Care Team Providers Care Top Distribution Executive Name Role Phone Sarah Ewaemilee DO Unavailable [phone] Jesse Weinstein MD Unavailable Kaelyn Zamora FOREST FIRE EQUIPMENT OPERATOR Unavailable + Polina Conroy PRESS OFFBEARER Unavailable [phone] Jeremie Ivey PANTS MAKER Primary Care Provider + Encounter Details Date Type Department Care Team (Late st Contact Info) Description 03/03/2023 Procedure Pass [facility] Radiology [address] [place] [address] Social History Tobacco Use Types Packs/Day Years [...] 5:00 PM EDT Mylene Cabezas RN * [place] Suicide Severity Rating Scale (Screener/Recent Self-Report) Question [...] AM EST Blood Draw Laboratory Services, [address], 2nd [place] [address] Jesse Weinstein MD [address] [place] [address] [email or web address] 11/16/2025 11:00 AM EST Office Visit [facility], Division of Hematologic Oncology, [address], 7th [place] [address] Jesse Weinstein MD [address] [place] [address] [email or web address] documented as of this encounter Visit Diagnoses Not on filedocumented in this encounter Additional Health Concerns Infection Onset Date Last Indicated Resolved Time COVID-19 Comment:Per Note Documentation 07/12/2024 07/11/2024 10:32 AM EST documented as of this encounter Care Teams Top Distribution Executive Relationship Specialty Start Date End Date Jeremie Ivey NP [facility] [place] [address] PCP - General Nurse Practitioner 11/26/22 Yomi Smith DO [address] [place] [address], [address] [place] [address] [email or web address] Internal Medicine 08/11/22 Jesse Weinstein MD [address] [place] [address] [email or web address] Primary Oncologist Medical Oncology 08/20/22 Kaelyn Zamora CNP [address] [place] [address] [email or web address] Nurse Practitioner Medical Oncology 08/20/22 Polina Conroy, PRESS [address]AR[address] [address] [email or web address] Bezel Cutter Oncology 09/11/22 documented as of this encounter Additional Source Comments The information contained in this document represents components of the legal health record. It is not the complete legal health record.[facility]
--- OUTSIDE RECORDS SUMMARY | 2025-08-04 08:13 | XMS_ITS | Encounter Summary ---
Author Organization [facility] Address [address] [facility] [address] [place] [address] Phone Care Team Providers Care Information Services Manager Name Role Phone Jyoti Dano MCCANN Primary Care Provider [phone] Yomi Smith DO Primary Care Provider [phone] Yomi Smith DO Unavailable [phone] Jesse Weinstein MD Unavailable Kaelyn Zamora MOTOR PATROL OPERATOR Unavailable + Polina Conroy SUPERVISOR SHEARING Unavailable [phone] Jeremie Ivey NP Primary Care Provider + Encounter Details Date Type Department Care Team (Late st Contact Info) Description 08/11/2017 Ancillary Orders [facility] Orthopedics & Sports Medicine [address] [place] [address] Tanvir Trammell DO [address] [place] [address] [facility] [place] [address] [email or web address] Right hip pain Social History Tobacco Use [...] 10:10 AM EST Blood Draw Laboratory Services, [address], 2nd [place] [address] Jesse Weinstein MD [address] [place] [address] [email or web address] 11/16/2025 11:00 AM EST Office Visit [facility], Division of Hematologic Oncology, [address], 7th [place] [address] Jesse Weinstein MD [address] [place] [address] [email or web address] documented as of this encounter Results * XR HIP 1 VW RIGHT PLUS PELVIS (08/11/2017 10:07 AM EST) Narrative Christa Romeo - 08/11/2017 10:07 AM EST This image report has been auto-finalized and has not been read by a Radiologist. Interpretation has been included in the provider encounter note for this date of service. Tanvir Trammell DO IMG XR PELVIS Final Resul t documented in this encounter Visit Diagnoses Diagnosis Right hip pain Pain in joint, pelvic region and thigh Right hip pain Pain in joint, pelvic region and thigh documented in this encounter Additional Health Concerns Infection Onset Date Last Indicated Resolved Time COVID-19 Comment:Per Note Documentation 07/12/2024 07/11/2024 10:32 AM EST documented as of this encounter Care Teams Information Services Manager Relationship Specialty Start Date End Date Dano Montes DO PCP - General Family Medicine 07/16/17 07/31/22 Yomi Smith DO [address] [place] [address], [address] [place] [address] [email or web address] PCP - General Internal Medicine 08/01/22 11/25/22 Jeremie Ivey, ALIZA [address] [place] [address] [place] [address] PCP - General Nurse Practitioner 11/26/22 Yomi Smith DO [address] [place] [address], [facility] [address] [place] [address] [email or web address] Internal Medicine 08/11/22 Jesse Weinstein MD [address] [place] [address] [email or web address] Primary Oncologist Medical Oncology 08/20/22 Kaelyn Zamora CNP [address] [place] [address] [email or web address] Nurse Practitioner Medical Oncology 08/20/22 Polina Conroy, [address] [address] [email or web address] Grizzly Worker Oncology 09/11/22 documented as of this encounter Additional Source Comments The information contained in this document represents components of the legal health record. It is not the complete legal health record.[facility]
--- OUTSIDE RECORDS SUMMARY | 2025-08-04 08:13 | XMS_ITS | Encounter Summary ---
Author Organization [facility] Address [address] [facility] [address] [place] [address] Phone Care Team Providers Care Financial Associate Name Role Phone Rafynehal Ewaemilee DO Unavailable [phone] Jesse Weinstein MD Unavailable Kaelyn Zamora SENIOR VICE PRESIDENT Unavailable + Polina Conroy SANITARY LANDFILL OPERATOR Unavailable [phone] Jeremie Ivey NP Primary Care Provider + Encounter Details Date Type Department Care Team (Late st Contact Info) Description 08/27/2023 Procedure Pass Rosalind Lank Imaging Department, [facility] [place], [place] [address] [facility], [address] [place] [address] Social History Tobacco Use Types Packs/Day Years [...] 10:10 AM EST Blood Draw Laboratory Services, [address], 2nd [place] [address] Jesse Weinstein MD [address] [place] [address] [email or web address] 11/16/2025 11:00 AM EST Office Visit [facility], Division of Hematologic Oncology, [address], 7th [place] [address] Jesse Weinstein MD [address] [place] [address] [email or web address] documented as of this encounter Visit Diagnoses Not on filedocumented in this encounter Additional Health Concerns Infection Onset Date Last Indicated Resolved Time COVID-19 Comment:Per Note Documentation 07/12/2024 07/11/2024 10:32 AM EST documented as of this encounter Care Teams Financial Associate Relationship Specialty Start Date End Date Jeremie Ivey NP [address] [facility] [place] [address] [place] [address] PCP - General Nurse Practitioner 11/26/22 Yomi Smith DO [address] [place] [address], [address] [place] [address] [email or web address] Internal Medicine 08/11/22 Jesse Weinstein MD [address] [place] [address] [email or web address] Primary Oncologist Medical Oncology 08/20/22 Kaelyn Zamora CNP [address] [place] [address] [email or web address] Nurse Practitioner Medical Oncology 08/20/22 Polina Conroy, [address] [address] [email or web address] Oncology Social Worker Oncology 09/11/22 documented as of this encounter Additional Source Comments The information contained in this document represents components of the legal health record. It is not the complete legal health record.[facility]
--- OUTSIDE RECORDS SUMMARY | 2025-08-04 08:13 | XMS_ITS | Encounter Summary ---
Author Organization [facility] Address [address] [facility] [address] [place] [address] Phone Care Team Providers Care Presales Engineer Name Role Phone Jyoti Dano MCCANN Primary Care Provider [phone] Yomi Smith DO Primary Care Provider [phone] Yomi Smith DO Unavailable [phone] Jesse Weinstein MD Unavailable Kaelyn Zamora TAILOR GARMENT FITTER Unavailable + Polina Conroy WAITRESS Unavailable [phone] Jeremie Ivey ESCAPEMENT MATCHER Primary Care Provider + Encounter Details Date Type Department Care Team (Late st Contact Info) Description 08/11/2017 Ancillary Orders [facility] Orthopedics & Sports Medicine [address] [place] [address] Tanvir Trammell DO [address] [place] [address] [facility] [place] [address] [email or web address] Social History Tobacco Use Types Packs/Day Years [...] 10:10 AM EST Blood Draw Laboratory Services, [address], 2nd [place] [address] Jesse Weinstein MD [address] [place] [address] [email or web address] 11/16/2025 11:00 AM EST Office Visit [facility], Division of Hematologic Oncology, [address], 7th [place] [address] Jesse Weinstein MD [address] [place] [address] [email or web address] documented as of this encounter Visit Diagnoses Not on filedocumented in this encounter Additional Health Concerns Infection Onset Date Last Indicated Resolved Time COVID-19 Comment:Per Note Documentation 07/12/2024 07/11/2024 10:32 AM EST documented as of this encounter Care Teams Presales Engineer Relationship Specialty Start Date End Date Dano Montes DO PCP - General Family Medicine 07/16/17 07/31/22 Yomi Smith DO [address] [place] [address], [address] [place] [address] PCP - General Internal Medicine 08/01/22 11/25/22 Jeremie Ivey NP [address] [facility] [place] [address] [place] [address] PCP - General Nurse Practitioner 11/26/22 Yomi Smith DO [address] [place] [address], [address] [place] [address] [email or web address] Internal Medicine 08/11/22 Jesse Weinstein MD [address] [place] [address] [email or web address] Primary Oncologist Medical Oncology 08/20/22 Kaelyn Zamora CNP [address] [place] [address] [email or web address] Nurse Practitioner Medical Oncology 08/20/22 Polina Conroy, [address] [address] [email or web address] Workflow Developer Oncology 09/11/22 documented as of this encounter Additional Source Comments The information contained in this document represents components of the legal health record. It is not the complete legal health record.[facility]
--- OUTSIDE RECORDS SUMMARY | 2025-08-04 08:13 | XMS_ITS | Encounter Summary ---
Author Organization [facility] Address [address] [place] [address] Phone Care Team Providers Care Artist Model Name Role Phone Rafynehal Ewaemilee DO Unavailable Jesse Weinstein MD Unavailable Kaelyn Zamora SANDBLASTER STONE Unavailable + Polina Conroy ACCOUNT MANAGER SALES REPRESENTATIVE Unavailable [phone] Jeremie Ivey NP Primary Care Provider + Encounter Details Date Type Department Care Team (Late st Contact Info) Description 08/27/2023 Procedure Pass Rosalind Lank Imaging Department, [facility] [place], [place] [address] [facility], Floor [address] [place] [address] Social History Tobacco Use Types Packs/Day Years [...] 10:10 AM EST Blood Draw Laboratory Services, [address], 2nd [place] [address] Jesse Weinstein MD [address] [place] [address] [email or web address] 11/16/2025 11:00 AM EST Office Visit [facility] for [facility], Division of Hematologic Oncology, [address], [address]th [place] [address] Jesse Weinstein MD [address] [place] [address] [email or web address] documented as of this encounter Visit Diagnoses Not on filedocumented in this encounter Additional Health Concerns Infection Onset Date Last Indicated Resolved Time COVID-19 Comment:Per Note Documentation 07/12/2024 07/11/2024 10:32 AM EST documented as of this encounter Care Teams Artist Model Relationship Specialty Start Date End Date Jeremie Ivey NP [address] [facility] [place] [address] [place] [address] PCP - General Nurse Practitioner 11/26/22 Yomi Smith DO [address] [place] [address], [address] [place] [address] [email or web address] Internal Medicine 08/11/22 Jesse Weinstein MD [address] [place] [address] [email or web address] Primary Oncologist Medical Oncology 08/20/22 Kaelyn Zamora CNP [address] [place] [address] [email or web address] Nurse Practitioner Medical Oncology 08/20/22 Polina Conroy, [address] [address] [email or web address] Hydrodynamicist Oncology 09/11/22 documented as of this encounter Additional Source Comments The information contained in this document represents components of the legal health record. It is not the complete legal health record.[facility]
--- OUTSIDE RECORDS SUMMARY | 2025-08-04 08:13 | XMS_ITS | Clinical Summary ---
Author Organization [facility] Address [address] [facility] [address] [place] [address] Phone Care Team Providers Care Batch Heat Treat Operator Name Role Phone Yomi Smith DO Unavailable [phone] Jesse Weinstein MD Unavailable Kaelyn Zamora RURAL HEALTH CONSULTANT Unavailable + Polina Conroy COMPUTER INFORMATION SCIENCE PROFESSOR Unavailable [phone] Jeremie Ivey NP Primary Care Provider + Allergies Active Allergy Reactions Criticality Noted Date Comments Allopurinol Rash Low 11/19/2022 Faint rash on chest and back. Not bothersome. Penicillin Rash,Nausea and/or Vomiting Low 05/23/2021 Medications cholecalciferol (VITAMIN D3) 400 unit tablet Take 400 Units by mouth daily. Active Active Problems Problem Noted Date Diagnosed Date [...] inguinal LN biopsy. Now admitted for Protocol -303 on Arm A: Acalabrutinib BID and ramp up Venetoclax. Started Acalabrutinib C1 outpatient. Allopurinol transitioned to Uloric VERIFICATION LEAD due to rash. Now admitted for C3 [...] total hip replacement, timing to be determined. Encounters Date Type Department Care Team Description 06/05/2025 11:30 AM EDT Office Visit [facility], Division of Hematologic Oncology, [facility] [address] [facility], 7th [place] [address] Kaelyn Zamora, FRANCISCO Small lymphocytic lymphoma (Primary Dx) from Last 3 Months Immunizations Immunization Administration Dates Next Due INFLUENZA, SPLIT VIRUS, TRIV ALENT W/ PRESERVATIVE IM 05/15/2020,06/05/2013,06/01/2011,2009 Influenza Quadrivalent Adjuv anted Preservative Free IM 07/29/2023,08/24/2022 Influenza Quadrivalent MDCK Preservative Free IM 06/18/2020,06/16/2018 Influenza Quadrivalent Prese rvative Free IM 06/29/2019,07/24/2016 Influenza, Unspecified Formulation 08/24/2022 Pneumococcal conjugate PCV20 01/01/2023 Zoster recombinant 01/01/2023,09/11/2022 Family History Medical History Relation Comments No Known Problems Brother Colon cancer Father No Known Problems Maternal Aunt No Known Problems Maternal Grandfather No Known Problems Maternal Grandmother No Known Problems Maternal Uncle Brain cancer Mother Breast cancer Mother unknown primary cancer No Known Problems Paternal Aunt Stomach cancer Paternal Grandfather surgeon No Known Problems Paternal Grandmother No Known Problems Paternal Uncle No Known Problems Sister Cancer Unspecified Diabetes Unspecified Clotting disorder Neg Hx Collagen disease Neg Hx Depression Neg Hx Dislocations Neg Hx Gout Neg Hx Infl. arthritis Neg Hx Osteoporosis Neg Hx Scoliosis Neg Hx Relation Status Comments Brother Father Maternal Aunt Maternal Grandfather Maternal Grandmother Maternal Uncle Mother Paternal Aunt Paternal Grandfather Paternal Grandmother Paternal Uncle Sister Unspecified Social History Tobacco Use Types Packs/Day Years [...] Orientation Straight 08/01/2022 1: 08 PM EST Last Filed Vital Signs Vital Sign Reading Time Taken Comments Blood Pressure 160/63 06/05/2025 11:32 AM EDT Pulse 64 06/05/2025 11:32 AM EDT Temperature 36.6 C (97.8 F) 06/05/2025 11:32 AM EDT Respiratory Rate 16 06/05/2025 11:3 2 AM EDT Oxygen Saturation 99% 06/05/2025 11: 32 AM EDT Inhaled Oxygen Concentration 20.9% 11/19/2022 2 :45 PM EST Weight 75.2 kg (165 lb 12.6 oz) 025 11:32 AM EDT Height 177.9 cm (5' 10.04 ) 06/05/2025 11:32 AM EDT Body Mass Index 23.76 06/05/2025 11:32 AM EDT Plan of Treatment Upcoming Encounters Date Type Department Care Team (Late st Contact Info) Description 11/16/2025 10:10 AM EST Blood Draw Laboratory Services, [address], 2nd [place] [address] Jesse Weinstein MD [address] [place] [address] [email or web address] 11/16/2025 11:00 AM EST Office Visit [facility], Division of Hematologic Oncology, [address], 7th [place] [address] Jesse Weinstein MD [address] [place] [address] [email or web address] Health Maintenance Due Date Last Done Comments Adult Td,Tdap Booster 1955 LIPID PANEL 1955 DEPRESSION SCREENING 1967 COLOGUARD 2000 COLONOSCOPY 2000 COLORECTAL CANCER SCREENING 2000 FIT TEST 2000 FOBT 2000 SIGMOIDOSCOPY 2000 VIRTUAL COLONOSCOPY 2000 RSV VACCINE (1 - Risk 50-74 years 1-dose series) 2005 INFLUENZA VACCINE (#1) 2025 , 08/24/2022, 08/24/2022, Additional history exists COVID-19 VACCINE ( season) 2025 06/26/2023, 08/24/2022, 06/21/2021, Additional history exists HEPATITIS C SCREENING Completed 09/04/2022 , 09/04/2022, 09/04/2022 PNEUMOCOCCAL VACCINES (50+ years) Completed 01/01/2023 ZOSTER VACCINES Completed 01/01/2023, 09/11/2022 SMOKING STATUS SCREENING (Once After 26 Yrs) Completed 05/04/2023 HEPATITIS A VACCINES Aged Out No long er eligible based on patient's age to complete this topic HIB VACCINES Aged Out No longer eligi ble based on patient's age to complete this topic MENINGOCOCCAL VACCINES (ACWY) Aged Out No longer eligible based on patient's age to complete this topic MENINGOCOCCAL VACCINES (B) Aged Out N o longer eligible based on patient's age to complete this topic Medical Devices Implanted Type Area Label Pinker Device Identifier Shelf Expiration Date Model / Serial / Lot Mesh Mesh Left: Abdomen Screw Bone 6.5x8mm Cancellous Acetabular Vici Hip - [id number] Implanted:Qty: 1 on 03/03/2023 by Jeremie Vines MD at [facility] Right: Hip [employer] 11/11/2032 [id number] / / [id number] Hip Stem [id number] 57mm Size 10 127deg Accolade Ii 01 - [id number] Implanted:Qty: 1 on 03/03/2023 by Jeremie Vines MD at [facility] Right: Hip [employer] 11/07/2024 [id number] / / [id number] Hip 36mm 2.5 Implant Hd Alumina Ceramic Modular Delta Biolox Minus 04 - [id number] Implanted:Qty: 1 on 03/03/2023 by Jeremie Vines MD at [facility] STANDARD Right: Hip [employer] 12/20/2027 [id number] / / [id number] Acetabular Shell 62g Clusterhole 3d Surface Tritanium Trident Ii - [id number] Implanted:Qty: 1 on 03/03/2023 by Jeremie Vines MD at [facility] Right: Hip [employer] 12/09/2027 [id number] / / [id number] Acetabular Insert 36mm 9.4mm 0deg Trident X3 - [id number] Implanted:Qty: 1 on 03/03/2023 by Jeremie Vines MD at [facility] Right: Hip [employer] 09/30/2027 [id number] / / [id number] Screw Bone 6.5x20mm Low Profile - [id number] Implanted:Qty: 1 on 03/03/2023 by Jeremie Vines MD at [facility] Right: Hip [employer] 09/16/2027 [id number] / / [id number] Screw Bone 6.5x25mm Low Profile - [id number] Implanted:Qty: 1 on 03/03/2023 by Jeremie Vines MD at [facility] Right: Hip [employer] 09/24/2027 [id number] / / [id number] Procedures Procedure Name Priority Date/Time Associated Diagnosis Comments BETA-2 MICROGLOBULIN, BLOOD Routine 06/05/2025 10:59 AM EDT Small lymphocytic lymphoma LDH Routine 06/05/2025 10:59 AM EDT Small lymphocytic lymphoma COMPREHENSIVE METABOLIC PANEL (CMP) Routine 06/05/2025 10:59 AM EDT Small lymphocytic lymphoma HC BLOOD COUNT COMPLETE AUTO&AUTO DIFRNTL WBC Routine 06/05/2025 10:59 AM EDT Small lymphocytic lymphoma HEPATITIS C ANTIBODY WITH REFLEX TO HCV, RNA QUANTITATIVE REAL-TIME PCR Routine 09/04/2022 4:13 PM EST Small lymphocytic lymphoma from Last 3 Months or Most Recently Relevant to Health Maintenance Results * LDH (06/05/2025 10:59 AM EDT) LDH 178 135 - 225 U/L [facility] Comment:INTERPRET WITH CAUTI ON, SPECIMEN HEMOLYZED Blood 06/05/2025 10:5 9 AM EDT 06/05/2025 11:12 AM EDT us Jesse Weinstein MD LAB BLOOD BKR ORDERABLES Final R esult [facility] [address] [place] [address] * (ABNORMAL) Comprehensive metabolic panel (06/05/2025 10:59 AM EDT) SODIUM 136 136 - 145 mmol/L [facility] POTASSIUM 4.5 3.4 - 5.1 mmol/L [facility] CHLORIDE 102 98 - 107 mmol/L [facility] CO2 24 22 - 31 mmol/L [facility] BUN 21 6 - 23 mg/dL [facility] CREATININE 1.20 0.50 - 1.20 mg/dL [facility] GLUCOSE 103(H) 70 - 100 mg/dL [facility] ALBUMIN 4.2 3.5 - 5.2 g/dL [facility] TOTAL PROTEIN 6.6 6.4 - 8.3 g/dL [facility] CALCIUM 9.3 8.8 - 10.7 mg/dL [facility] ALKALINE PHOSPHATASE 69 40 - 129 U/L [facility] TOTAL BILIRUBIN 0.6 0.2 - 1.2 mg/dL [facility] AST 31 <41 U/L [facility] ALT 20 <42 U/L [facility] GLOBULIN 2.4 2.3 - 4.2 g/dL [facility] EGFR 65 >59 mL/min/1.7 3m2 [facility] Comment:Estimated glomerular filtration rate calculated using the CKD-EPI refit equation. ANION GAP 10 7 - 17 mmol/L [facility] Blood 06/05/2025 10:5 9 AM EDT 06/05/2025 11:12 AM EDT us Jesse Weinstein MD LAB BLOOD BKR ORDERABLES Final R esult [facility] [address] [place] [address] * (ABNORMAL) CBC and differential (06/05/2025 10:59 AM EDT) WBC 4.70 4.00 - 10.00 K/uL [facility] RBC 4.48(L) 4.50 - 6.40 M/uL [facility] HGB 13.8 13.5 - 18.0 g/dL [facility] HCT 41.2 40.0 - 54.0 % [facility] PLT 180 150 - 450 K/uL [facility] MCV 92.0 80.0 - 100.0 fL [facility] MCH 30.8 27.0 - 32.0 pg [facility] MCHC 33.5 32.0 - 36.0 g/dL [facility] RDW 12.6 11.5 - 14.5 % [facility] MPV 9.6 8.4 - 12.0 fL [facility] NRBC 0.00 0 /100 WBCs [facility] ABSOLUTE NRBC 0.00 0 K/uL [facility] DIFF METHOD Auto [facility] NEUTS 63.0 48.0 - 76.0 % [facility] LYMPHS 26.2 18.0 - 41.0 % [facility] MONOS 8.9 4.0 - 11.0 % [facility] EOS 1.1 0.0 - 5.0 % [facility] BASOS 0.6 0.0 - 1.5 % [facility] % IMMATURE GRANS 0.2 0.0 - 1.0 % [facility] ABSOLUTE NEUTS 2.96 1.92 - 7.60 K/uL [facility] ABSOLUTE LYMPHS 1.23 0.72 - 4.10 K/uL [facility] ABSOLUTE MONOS 0.42 0.16 - 1.10 K/uL [facility] ABSOLUTE EOS 0.05 0.00 - 0.50 K/uL [facility] ABSOLUTE BASOS 0.03 0.00 - 0.15 K/uL [facility] ABS IMMATURE GRANS 0.01 0.00 - 0.10 K/uL [facility] Blood 06/05/2025 10:5 9 AM EDT 06/05/2025 11:12 AM EDT us Jesse Weinstein MD LAB BLOOD BKR ORDERABLES Final R esult Performing Organization Address [facility] Co de Phone Number [facility] [address] [place] [address] * Beta-2 microglobulin, blood (06/05/2025 10:59 AM EDT) BETA 2 MICROGLOBULIN 1.7 0.8 - 2.2 mg/L [facility] Blood 06/05/2025 10:5 9 AM EDT 06/05/2025 11:12 AM EDT us Jesse Weinstein MD LAB BLOOD BKR ORDERABLES Final R esult Performing Organization Address [facility] de Phone Number [facility] [address] [place] [address] * Hepatitis C Antibody with Reflex to HCV, RNA quantitative Real-Time PCR (09/04/2022 4:13 PM EST) HCV Ab Negative Negative [facility] Comment: (NOTE) Hbirzy-ks-gymjpp ratio is <1.00. Blood 09/04/2022 4:13 PM EST 09/04/2022 4:54 PM EST us Jesse Weinstein MD LAB BLOOD BKR ORDERABLES Final R esult Performing Organization Address City/[facility] Co de Phone Number [facility] [place] [place] [address] from Last 3 Months or Most Recently Relevant to Health Maintenance Insurance [facility] MEDICARE PPO BLUE REPLACEMENT [facility] MEDICARE PPO BLUE REPLACEMENT [facility] MEDICARE PPO BLUE REPLACEMENT [facility] MEDICARE PPO BLUE REPLACEMENT [facility] MEDICARE PPO BLUE REPLACEMENT [facility] MEDICARE PPO BLUE RE[place] RE[place]AC[place] Advance Directives For more information, please contact: [phone] (9AM - 5PM Juli/[facility]_Carlos, Thursday-Thursday) Documents on File Type Date Recorded Patient Milk Route Supervisor Expl anation Healthcare Proxy 11/24/2022 4:12 PM * Full Code (Latest Code Status on File) Date Activated Date Inactivated Comments 03/04/2023 7:29 AM Question Answer Comments Code Status Confirmed With: Other (specify below ) * Full Code Date Activated Date Inactivated Comments 11/26/2022 6:26 PM 03/04/2023 7:29 AM Question Answer Comments Code Status Confirmed With: Patient Code Status Communicated To: Other (specify belo w) Code Discussion Comments: Communicated to ANASTACIO Hernandez * Full Code Date Activated Date Inactivated Comments 11/19/2022 5:22 PM 11/26/2022 6:26 PM Question Answer Comments Code Status Confirmed With: Patient Code Status Communicated To: Other (specify belo w) Code Discussion Comments: patient to [place] ( patricia robles) Care Teams Batch Heat Treat Operator Relationship Specialty Start Date End Date Jeremie Ivey NP [address] [facility] [address] PCP - General Nurse Practitioner 11/26/22 Yomi Smith DO [address] [place] [address], [address] [place] [address] Internal Medicine 08/11/22 Jesse Weinstein MD [address] [place] [address] [email or web address] Primary Oncologist Medical Oncology 08/20/22 Kaelyn Zamora CNP [address] [place] [address] [email or web address] Nurse Practitioner Medical Oncology 08/20/22 Polina Conroy, JAZMIN [address] [place] [phone] [email or web address] Classification Case Manager Oncology 09/11/22 Additional Source Comments The information contained in this document represents components of the legal health record. It is not the complete legal health record.[facility]
--- OUTSIDE RECORDS SUMMARY | 2025-08-04 08:13 | XMS_ITS | Encounter Summary ---
Author Organization [facility] Address [address] [facility] [address] [place] [address] Phone Care Team Providers Care Battery Tester Name Role Phone Dano Montes DO Primary Care Provider [phone] Yomi Smith DO Primary Care Provider [phone] Yomi Smith DO Unavailable [phone] Jesse Weinstein MD Unavailable Kaelyn Zamora MEDICAL GRADE SHOEMAKER Unavailable + Polina Conroy PRINTER APPRENTICE Unavailable [phone] Jeremie Ivey NP Primary Care Provider + Encounter Details Date Type Department Care Team (Late st Contact Info) Description 08/11/2017 Ancillary Orders [facility] Medicine [address] [place] [address] Tanvir Trammell DO [address] [place] [address] [facility] [place] [address] [email or web address] Social History Tobacco Use Types Packs/Day Years [...] 10:10 AM EST Blood Draw Laboratory Services, [address] 2nd [place] [address] Jesse Weinstein MD [address] [place] [address] [email or web address] 11/16/2025 11:00 AM EST Office Visit [facility] for Lymph[facility], Division of Hematologic Oncology, [address], [address] [place] [address] Jesse Weinstein MD [address] [place] [phone] [email or web address] documented as of this encounter Visit Diagnoses Not on filedocumented in this encounter Additional Health Concerns Infection Onset Date Last Indicated Resolved Time COVID-19 Comment:Per Note Documentation 07/12/2024 07/11/2024 10:32 AM EST documented as of this encounter Care Teams Battery Tester Relationship Specialty Start Date End Date Dano Montes DO PCP - General Family Medicine 07/16/17 07/31/22 Yomi Smith DO [address] [place] [address], [address] [place] [address] [email or web address] PCP - General Internal Medicine 08/01/22 11/25/22 Jeremie Ivey NP [address] [place] [address] [address] [place] [address] PCP - General Nurse Practitioner 11/26/22 Yomi Smith DO [address] [place] [address], [address] [place] [address] [email or web address] Internal Medicine 08/11/22 Jesse Weinstein MD [address] [place] [address] [email or web address] Primary Oncologist Medical Oncology 08/20/22 Kaelyn Zamora CNP [address] [place] [address] [email or web address] Nurse Practitioner Medical Oncology 08/20/22 Polina Conroy, PRINTER APPRENTICE [address] [place] [phone] [email or web address] Motor Builder Winder Oncology 09/11/22 documented as of this encounter Additional Source Comments The information contained in this document represents components of the legal health record. It is not the complete legal health record.[facility]
--- OUTSIDE RECORDS SUMMARY | 2025-08-04 08:13 | XMS_ITS | Encounter Summary ---
Author Organization [facility] Address [address] [facility] [address] [place] [address] Phone Care Team Providers Care Fruit Sprayer Name Role Phone Yomi Smith DO Primary Care Provider Yomi Smith DO Unavailable [phone] Jesse Weinstein MD Unavailable Kaelyn Zamora ACID DIPPER Unavailable + Polina Conroy TEA BLENDER Unavailable [phone] Jeremie Ivey GENERAL MANAGER LAND DEPARTMENT Primary Care Provider + Encounter Details Date Type Department Care Team (Late st Contact Info) Description 09/19/2022 Procedure Pass [facility] Imaging Department, [facility] [place], [place] [address] [facility], [address] [place] [address] Social History Tobacco Use Types Packs/Day Years [...] 10:10 AM EST Blood Draw Laboratory Services, [facility] [address] [facility], 2nd [place] [address] Jesse Weinstein MD [address] [place] [phone] [email or web address] 11/16/2025 11:00 AM EST Office Visit [facility] for Lymph[facility], Division of Hematologic Oncology, [address], [address] [place] [address] Jesse Weinstein MD [address] [place] [phone] [email or web address] documented as of this encounter Visit Diagnoses Not on filedocumented in this encounter Additional Health Concerns Infection Onset Date Last Indicated Resolved Time COVID-19 Comment:Per Note Documentation 07/12/2024 07/11/2024 10:32 AM EST documented as of this encounter Care Teams Fruit Sprayer Relationship Specialty Start Date End Date Yomi Smith DO [address] [place] [address], [facility] [address] [place] [address] [email or web address] PCP - General Internal Medicine 08/01/22 11/25/22 Jeremie Ivey NP [facility] [place] [address] PCP - General Nurse Practitioner 11/26/22 Yomi Smith DO [address] [place] [address], [address] [place] [address] [email or web address] Internal Medicine 08/11/22 Jesse Weinstein MD [address] [place] [address] [email or web address] Primary Oncologist Medical Oncology 08/20/22 Kaelyn Zamora CNP [address] [place] [phone] [email or web address] Nurse Practitioner Medical Oncology 08/20/22 Polina Conroy, [address] [address] [email or web address] Zone Supervisor Firearms Oncology 09/11/22 documented as of this encounter Additional Source Comments The information contained in this document represents components of the legal health record. It is not the complete legal health record.[facility]
--- OUTSIDE RECORDS SUMMARY | 2025-08-04 08:13 | XMS_ITS | Encounter Summary ---
Author Organization [facility] Address [address] [facility] [address] [place] [address] Phone Care Team Providers Care Lead Embedded Software Engineer Name Role Phone Yomi Smith DO Primary Care Provider Yomi Smith DO Unavailable [phone] Jesse Weinstein MD Unavailable Kaelyn Zamora WET POUR MIXER Unavailable + Polina Conroy MEASUREMENT AND SENSING TECHNICIAN Unavailable [phone] Jeremie Ivey COMPETITIVE INTELLIGENCE MANAGER Primary Care Provider + Encounter Details Date Type Department Care Team (Late st Contact Info) Description 09/23/2022 Procedure Pass [facility] Angio Interventional Radiology [address] [place] [address] Social History Tobacco Use Types Packs/Day Years [...] EST Blood Draw Laboratory Services, [facility] [address] [place] [address], 2nd [place] [address] Jesse Weinstein MD [address] [address] [email or web address] 11/16/2025 11:00 AM EST Office Visit [facility] for [facility], [facility] Hemat[facility] On[facility], [facility] [address] [facility], 7th [place] [address] Jesse Weinstein MD [address] [place] [phone] [email or web address] documented as of this encounter Visit Diagnoses Not on filedocumented in this encounter Additional Health Concerns Infection Onset Date Last Indicated Resolved Time COVID-19 Comment:Per Note Documentation 07/12/2024 07/11/2024 10:32 AM EST documented as of this encounter Care Teams Lead Embedded Software Engineer Relationship Specialty Start Date End Date Yomi Smith DO [address] [place] [address], [address] [place] [address] [email or web address] PCP - General Internal Medicine 08/01/22 11/25/22 Jeremie Ivey, [facility] [address] [place] [address] PCP - General Nurse Practitioner 11/26/22 Yomi Smith DO [address] [place] [address], [address] [place] [address] [email or web address] Internal Medicine 08/11/22 Jesse Weinstein MD [address] [place] [address] [email or web address] Primary Oncologist Medical Oncology 08/20/22 Kaelyn Zamora, FRANCISCO [address] [place] [address] [email or web address] Nurse Practitioner Medical Oncology 08/20/22 Polina Conroy, [address] [address] [email or web address] Help Desk Technician Oncology 09/11/22 documented as of this encounter Additional Source Comments The information contained in this document represents components of the legal health record. It is not the complete legal health record.[facility]
--- OUTSIDE RECORDS SUMMARY | 2025-08-04 08:13 | XMS_ITS | Encounter Summary ---
Author Organization [facility] Address [address] [place] [address] Phone Care Team Providers Care Copier Technician Name Role Phone Yomi Smith DO Unavailable [phone] Jesse Weinstein MD Unavailable Kaelyn Zamora SENIOR VISUAL DESIGNER Unavailable + Polina ConroySW Unavailable [phone] Jeremie Ivey CAR MECHANIC HELPER Primary Care Provider + Encounter Details Date Type Department Care Team (Late st Contact Info) Description 12/01/2023 Documentation [facility] Division of Hematologic Oncology, [facility] [place] [address] [facility], 7th [place] [address] Shonna Forte RN [address] [facility] [place] [address] [email or web address] Social History Tobacco Use Types Packs/Day Years Used Date Smoking Tobacco: Never Smokeless Tobacco: Never Alcohol Use Standard Drinks/Week Comments Not Currently 0 (1 standard drink = 0.6 oz pur e alcohol) social Education Answer Date Recorded Are you interested in more education? Not on idana e 01/08/2023 Are you concerned about learning? [...] Progress Notes * Shonna Forte RN - 12/01/2023 3:27 PM EDT Note Subject: Protocol 22-303 Drug Accountability Drug accountability Drug Name: Venetoclax Dosage per pharmacy label: 100mg tablets Cycle: 15 Date dispensed: 09/23/23 Date returned: 11/18/23 If discrepancy, explain. Per Pharmacy label total # of pills dispensed: 240 # of pills returned: 16 Per Pharmacy label total # of bottles dispensed: 2 # of bottles returned: 1 Date diary was returned: 11/18/23 Drug diary was returned reflecting all doses taken appropriately. Pt returned half of supply at previous visit. See previous RN note. Drug Name: Acalabrutinib Dosage per pharmacy label: 100mg capsules Cycle: 15 Date dispensed: 09/23/23 Date returned: 11/18/23 If discrepancy, explain. Per Pharmacy label total # of pills dispensed: 120 # of pills returned: 7 Per Pharmacy label total # of bottles dispensed: 4 # of bottles returned: 2 Date diary was returned: 11/18/23 Drug diary was returned reflecting all doses taken appropriately. Pt returned half of supply at previous visit. See previous RN note. Shonna Forte RN documented in this encounter Plan of Treatment Upcoming Encounters Date Type Department Care Team (Late st Contact Info) Description 11/16/2025 10:10 AM EST Blood Draw Laboratory Services, [address], 2nd [place] [address] Jesse Weinstein MD [address] [place] [address] [email or web address] 11/16/2025 11:00 AM EST Office Visit [facility], Division of Hematologic Oncology, [address], 7th [place] [address] Jesse Weinstein MD [address] [place] [address] [email or web address] documented as of this encounter Visit Diagnoses Not on filedocumented in this encounter Additional Health Concerns Infection Onset Date Last Indicated Resolved Time COVID-19 Comment:Per Note Documentation 07/12/2024 07/11/2024 10:32 AM EST documented as of this encounter Care Teams Copier Technician Relationship Specialty Start Date End Date Jeremie Ivey NP [address] [place] [address] [place] [address] PCP - General Nurse Practitioner 11/26/22 Yomi Smith DO [address] [place] [address], [address] [place] [address] [email or web address] Internal Medicine 08/11/22 Jesse Weinstein MD [address] [place] [address] [email or web address] Primary Oncologist Medical Oncology 08/20/22 Kaelyn Zamora CNP [address] [place] [address] [email or web address] Nurse Practitioner Medical Oncology 08/20/22 Polina Conroy, LEAD PRESSER[address] [address] [email or web address] Flat Folding Machine Operator Oncology 09/11/22 documented as of this encounter Additional Source Comments The information contained in this document represents components of the legal health record. It is not the complete legal health record.[facility]
--- OUTSIDE RECORDS SUMMARY | 2025-08-04 08:13 | XMS_ITS | Encounter Summary ---
Author Organization [facility] Address [address] [place] [address] Phone Care Team Providers Care Hockey Scout Name Role Phone Rafynehal Ewaemilee DO Unavailable [phone] Jesse Weinstein MD Unavailable Kaelyn Zamora LEARNING CENTER COORDINATOR Unavailable + Polina Conroy CLINICAL TRAINING SPECIALIST Unavailable [phone] Jeremie Ivey NP Primary Care Provider + Encounter Details Date Type Department Care Team (Late st Contact Info) Description 08/27/2023 Procedure Pass [facility] Imaging Department, [facility] [place], [place] [address] [facility], [address] [place] [address] Social History Tobacco Use Types Packs/Day Years [...] 10:10 AM EST Blood Draw Laboratory Services, [address], 2nd [place] [address] Jesse Weinstein MD [address] [place] [address] [email or web address] 11/16/2025 11:00 AM EST Office Visit [facility], Division of Hematologic Oncology, [address], [address]th [place] [address] Jesse Weinstein MD [address] [place] [address] [email or web address] documented as of this encounter Visit Diagnoses Not on filedocumented in this encounter Additional Health Concerns Infection Onset Date Last Indicated Resolved Time COVID-19 Comment:Per Note Documentation 07/12/2024 07/11/2024 10:32 AM EST documented as of this encounter Care Teams Hockey Scout Relationship Specialty Start Date End Date Jeremie Ivey NP [address] [place] [address] PCP - General Nurse Practitioner 11/26/22 Yomi Smith DO [address] [place] [address], [address] [place] [address] [email or web address] Internal Medicine 08/11/22 Jesse Weinstein MD [address] [place] [address] [email or web address] Primary Oncologist Medical Oncology 08/20/22 Kaelny Zamora CNP [address] [place] [address] [email or web address] Nurse Practitioner Medical Oncology 08/20/22 Polina Conroy, [address] [address] [email or web address] [employer] Lead Oncology 09/11/22 documented as of this encounter Additional Source Comments The information contained in this document represents components of the legal health record. It is not the complete legal health record.[facility]
[2025-08-04 10:04] LABS: MANUAL DIFF FLAG NO
[2025-08-04 10:15] LABS: Hematocrit 44.5 % (42.0-52.0); Hemoglobin 15.1 g/dl (14.0-18.0); Imm Gran Abs Auto 0.01 X10*3/uL (0.00-0.03); Imm Gran Pct Auto 0.2 % (0.0-0.4); Lymphocytes Absolute Auto 1.2 X10*3/uL (1.2-4.9); Mean Corpuscular HGB Conc 33.9 g/dl (31.0-36.0); Mean Corpuscular Hemoglobin 31.3 pg (27.0-33.0); Mean Corpuscular Volume 92.1 fL (80.0-98.0); NRBC Abs Auto 0.000 X10*3/uL (0.0-0.012); NRBC Pct Auto 0.0 /100WBC (0.0-0.2); Platelet Count 244 X10*3/uL (160-400); Red Blood Count 4.83 X10*6/uL (4.60-5.80); White Blood Count 4.2 X10*3/uL (4.8-10.8)
[2025-08-04 10:16] LABS: Appearance Urine Clear; Glucose Urine UA Negative (Negative); PH 5.5 (5.0-9.0); Specific Gravity - Urine 1.020 (1.005-1.025); UMIC TRIGGER UACC YES
[2025-08-04 11:01] LABS: Alanine Aminotransferase 22 U/L (0-40); Albumin Level 4.5 g/dL (3.5-5.0); Alkaline Phosphatase 67 U/L (39-117); Anion Gap 13 (12-20); Aspartate Amino Transferase 40 U/L (5-37); Blood Urea Nitrogen 14 mg/dL (9-16); Calcium 9.3 mg/dL (8.4-10.2); Carbon Dioxide 25 mmol/L (22-29); Chloride 104 mmol/L (96-108); Cholesterol 303 mg/dL (<200); Estimated Glomerular Filt Rate 59; HDL Cholesterol 80 mg/dL (>40); Potassium 3.8 mmol/L (3.3-5.1); Sodium 138 mmol/L (135-145); Total Protein 7.1 g/dL (6.5-8.0); Triglycerides 76 mg/dL (<150)
[2025-08-09 15:00] LABS: Vitamin D 25-OH, D2 <4 ng/mL; Vitamin D 25-OH, D3 36 ng/mL; Vitamin D 25-OH, Total 36 ng/mL (30-100)
== END 2025-08-04 08:11 | disposition home or self-care (01) ==
LOC: HO.HMGCLDS 08:10
PROVIDERS: PCP Nurse Practitioner Family; Visit Provider Nurse Practitioner Family
DX: Z12.5 Encounter for screening for malignant neoplasm of prostate (principal); I10 Essential (primary) hypertension; E55.9 Vitamin D deficiency, unspecified; R79.89 Other specified abnormal findings of blood chemistry
CPT/HCPCS: 36415; 80053; 80061; 81001; 82306; 84153; 84443; 85025

== ENCOUNTER 2025-08-16 09:54 | Outpatient (REF) | payer MEDICARE, SELFPAY ==
--- OUTSIDE RECORDS SUMMARY | 2025-08-16 12:11 | XMS_ITS | Data Portability ---
Author Organization [place] [facility], MAIN OFFICE Address [address] [place] [address] [address] [place] [address] Assessment Encounter Date Assessment Date Assessment LastModified [...] Go To The Location Of Their Choice, [address] 2 01:10:30 vitamin D, 25-hydroxy, total, serum 2021 [facility] (Centralized Electronic Ordering - All Locations), Patient Can Go To The Location Of Their Choice, [address] 2 01:10:31 ferritin, serum or plasma 2021 [facility] (Centralized Electronic Ordering - All Locations), Patient Can Go To The Location Of Their Choice, [address] 3 05:01:47 folate, serum 2021 [facility] (Centralized Electronic Ordering - All Locations), Patient Can Go To The Location Of Their Choice, [address] 2 01:10:29 iron + total iron-bindin g capacity (TIBC), serum 2021 [facility] (Centralized Electronic Ordering - All Locations), Patient Can Go To The Location Of Their Choice, [id number] 11/18/202 2 00:46:29 retic count, blood 2021 [...] Go To The Location Of Their Choice, [id number] 05/28/202 3 05:01:47 PIERRE + rf (antinuclea r antibodies + rheumatoid factor), quantitativ e, serum 2021 [facility] (Centralized Electronic Ordering - All Locations), Patient Can Go To The Location Of Their Choice, [address] 3 05:01:47 C-reactive protein, quantitativ e, serum or plasma 2021 [facility] (Centralized Electronic Ordering - All Locations), Patient Can Go To The Location Of Their Choice, [address] 3 05:01:47 ESR (erythrocyt e sedimentati on rate), blood 2021 [facility] (Centralized Electronic Ordering - All Locations), Patient Can Go To The Location Of Their Choice, [address] 3 05:01:47 Referral general surgeon referral - Enlarged lymph nodes in neck and groin x8 weeks, wt loss and night sweats. please evaluate SIIS. 2021 Z[facility]Ë Hutchins MD, [address] [place], [address], 3 05:01:38 ENT surgery referral - Possible leukoplakia . Denies smoking and excessive ETOH. Please evaluate 2021 [facility] (Records Request Only), [address] [place], [address], 3 05:01:38 Procedures None recorded. Surgeries None [...] Go To The Location Of Their Choice, [id number] 07/31/2022 21:52:01 07/31/20 22 07/31/2022 RETIC ULOCY [...] Go To The Location Of Their Choice, [id number] 07/31/2022 21:52:01 07/31/20 22 07/31/2022 COMPL ETE CBC WITH DIFF WBC 10.0 K/mm3 (4.0-1 1.0) Not Available [facility] (Centralized Electronic Ordering - All Locations) Patient Can Go To The Location Of Their Choice, [id number] 07/31/2022 23:42:21 07/31/20 22 07/31/2022 COMPL ETE CBC WITH DIFF RBC 4.09 M/mm3 (4.70- 6.10) low Not Available [facility] (Centralized Electronic Ordering - All Locations) Patient Can Go To The Location Of Their Choice, [id number] 07/31/2022 23:42:21 07/31/20 22 07/31/2022 COMPL ETE CBC WITH DIFF HGB 13.1 gm/dL (13.7- 17.1) low Not Available [facility] (Centralized Electronic Ordering - All Locations) Patient Can Go To The Location Of Their Choice, [id number] 07/31/2022 23:42:21 07/31/20 22 07/31/2022 COMPL ETE [...] Go To The Location Of Their Choice, [id number] 07/31/2022 23:42:21 07/31/20 22 07/31/2022 COMPL ETE CBC WITH DIFF mono# 0.6 K/mm3 (0.4-1 .3) Not Available [facility] (Centralized Electronic Ordering - All Locations) Patient Can Go To The Location Of Their Choice, [id number] 07/31/2022 23:42:21 07/31/20 22 07/31/2022 COMPL ETE [...] 07/31/2022 23:42:21 07/31/20 22 08/01/2022 COMPR EHENS JENISE METAB OLIC PANL glucose 94 mg/dL (70-99 [...] Go To The Location Of Their Choice, [id number] 08/01/2022 01:10:27 07/31/2008/01/2022 CHARBEL TIN ferritin 227 NG/mL (16-29 4) Not Available [facility] (Centralized Electronic Ordering - All Locations) Patient Can Go To The Location Of Their Choice, [id number] 08/01/2022 01:10:28 07/31/2008/01/2022 FOLIC ACID folic acid 7.5 NG/mL (4.5-3 2.2) Not Available [facility] (Centralized Electronic Ordering - All Locations) Patient Can Go To The Location Of Their Choice, [id number] 08/01/2022 01:10:29 07/31/2008/01/2022 TSH WITH REFLE X TO FT4 TSH 3.59 uIU/m L (0.4-4 .2) Not Available [facility] (Centralized Electronic Ordering - All Locations) Patient Can Go To The Location Of Their Choice, [id number] 08/01/2022 01:10:30 07/31/20 22 08/01/2022 25OH VITAM IN D 25OH vitamin D 25.5 NG/mL (20-50 ) Not Available [facility] (Centralized Electronic Ordering - All Locations) Patient Can Go To The Location Of Their Choice, [id number] 08/01/2022 01:10:31 Result Notes None recorded. Medical [...] Address Organization Details Last Updated DateTime 07/31/2022 15009.19 g 22.2 kg/m2 180.34 cm Yomi Smith DO [address], [place], [address], [place] - [facility] 07/31/2022 12:11:03 Social History Question Answer Notes LastModified by Organizat ion Details LastModified Time Tobacco Smoking Status Never Smoker Yomi Smith DO [address], [place], [address], [place] - [facility] 07/31/2022 12:26:03 What Is Your Level Of Caffeine Consumption? Occasional Information not available 07/31/2022 What Type Of Diet Are You Following? REGULAR Information not available 07/31/2022 What Is The Highest Grade Or Level Of School You Have Completed Or The Highest Degree You Have Received? 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 Yes Information not available 07/31/2022 What is your exercise level? Moderate resistance band /walk Information not available 07/31/2022 Mental Status Question Answer Note LastModified by Organizat ion Details LastModified Time Do you feel stressed (tense, restless, nervous, or anxious, or unable to sleep at night)? [id number] feels more anxious now with his physical [...] MAIN OFFICE [address] [place] [address] 07/31/2022 11:57:39 08/01/2022 14:34:30 Inguinal lymphadenopathy 481610897 R59.0 Diffused lymphadeno shayna in neck and [...] [facility] in [place] [facility] further eval. Appropriat e referral will be placed when pt gets accepted by [facility]. Inflammato ry bowel disease 86150396 K52.9 Report loose abnormal stools at times and gets bloating with certain foods. Suspicious for IBD.Recomm ended probiotics +collagen+ healthy foods+low sugar diet.Refer ral for GI if no improvemen t. Generalize d anxiety disorder 15831093 F41.1 offered medication since he seems overwhelme d with potential diagnosis but he refused.la bs as below. Viral infe ction of skin [id number] B09 Possible leukoplaki aHas had white plaque under the tongue for at least 8 weeks. Referred to ENT for possible biopsy. Osteoarthritis of hip 23 5764086 M16.9 ChronicHe has refused surgery and developed [...] [place] (MED[place]ARE [place]PLACEMENT PPO) [id number] Amauri Benjamin [id number] Amauri Benjamin 07/31/2022 2 [place]IC[place] B-[place]: [employer] Amauri Benjamin [id number] Amauri Benjamin Notes Date Note Type [...] stool, no melena. Yomi Smith, DO [address] [facility] [address], [place], [address], [place] - [facility] 08/01/2022 09:42:10
--- OUTSIDE RECORDS SUMMARY | 2025-08-16 12:11 | XMS_ITS | Patient Health Record ---
Author Organization [facility] Address [address] [place] [address] Care Team Providers Care Surgical Technologist Name Role Phone EMANUEL TOMAS Primary Care Provider Dany Serrano [phone] Allergies Allergen (clinical drug ingredient) Drug/Non Drug Allergy documented on EMR Reaction Allergy Type Onset Date Status erythromycin Erythromycin Unknown Drug Allergy A ctive Penicillin Unknown Drug Allergy Active Reason For Referral No Information Immunizations Vaccine Route Administration Date Status Comme nts Influenza Unknown 05/15/2020 Administered Social History Social History Additional Details Category Social Info Options Details Miscellaneous: Marital status: 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 Section Notes: Nonsmoker; occ. wine Nonsmoker; occ. wine Problems Problem Type SNOMED Code ICD Code Onset Dates Problem Status W/U Status Risk Notes Problem Screening for malignant neoplasm of colon (148800821) Encounter for screening for malignant neoplasm of colon (Z12.11) Active confirmed Problem History of adenomatous polyp of colon (085978916) History of adenomatous polyp of colon (Z86.010) Active confirmed Problem Screening for malignant neoplasm of rectum (358970464) Encounter for screening for malignant neoplasm of rectum (Z12.12) Active confirmed Problem Preprocedural examination (490287193295290) Preprocedural examination (Z01.818) Active confirmed Problem Diverticulosis of colon (544268425) Diverticulosis of colon (K57.30) Active confirmed Plan Of Treatment Future Test Test Name Order Date COLONOSCOPY 12/14/2015 COLONOSCOPY 05/23/2021 Insurance Providers Payer Name Payer Address Payer Phone Subscriber Number Group Number Insured Name Patient Relationship to Insured Coverage Start Date Coverage End Date [facility] PROF[employer]AL CLAIMS [address] [place] [address] [id number] LIZANDRO ORTIZ Self - patient is the insured Medical (General) History Medical History History ICD Code Denies SC,DM,CVA,Lung disease,renal dise ase Colonoscopy with removal of 2 small tubular adenomas in 2000--he had a negative colonoscopy in 2005 and in January of 2011, other than some mild sigmoid diverticulosis. Negative colonoscopy in 02/2016. Surgical History Surgery Date(Month/Year) knee surgery x2 hernia repair
[2025-08-16 13:35] LABS: Appearance Urine Clear; Glucose Urine UA Negative (Negative); PH 5.5 (5.0-9.0); Specific Gravity - Urine 1.015 (1.005-1.025)
== END 2025-08-16 09:55 | disposition home or self-care (01) ==
LOC: HO.HMGCLDS 09:54
PROVIDERS: PCP Nurse Practitioner Family; Visit Provider Nurse Practitioner Family
DX: R31.29 Other microscopic hematuria (principal); E78.5 Hyperlipidemia, unspecified
CPT/HCPCS: 81003; 88112; 96127; 99212

== ENCOUNTER 2025-08-16 09:54 | Outpatient (AMB) | payer MEDICARE, SELFPAY ==
--- NOTE | 2025-08-16 09:59 | A.OFFPC_ITS ---
Vital Signs 08/16/25 10:03 Height 5 ft 11 in Weight 170 lb BMI 23.7 BP 140/88 H Blood Pressure Location Lt brachial Position Sitting Pulse 72 Pulse Source Pulse Oximeter Pulse Oximetry (%) 96 Oxygen Delivery Method Room Air Intake Visit Reasons: 6m follow up Tile Helper Required: No Accompanied by: Self / Same As Patient Allergies penicillin V Allergy (Intermediate, Verified 02/14/25 10:19) Rash erythromycin base Allergy (Unknown, Verified 02/14/25 10:19) Unknown Tobacco use date assessed: 08/16/25 Fall risk assessment: No Falls in past year Last assessed Fall Risk: 08/16/25 Dental Screening Dental Screen Date: 02/14/25 HPI 6m follow up HPI Details Chief Complaint The patient presents for a generalized follow-up visit and management of elevated cholesterol. History of Present Illness The patient is a 69-year-old individual presenting for a generalized follow-up and management of elevated cholesterol. The patient's cholesterol remains elevated, although it has shown a slight decrease. Recent laboratory results revealed an LDL of 208 mg/dL, total cholesterol of 303 mg/dL, and triglycerides of 76 mg/dL. The patient is reluctant to take pharmaceutical medications and is interested in a natural approach to management. The patient has a history of lymphoma and is followed regularly by an oncology team. Associated with this is a chronic, ongoing slight leukopenia. Of note, there is persistent microscopic hematuria. 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 The patient was previously referred to urology but did not attend the appointment; however, the patient reports having a negative full workup, including a cystoscopy, by a urologist around [id number]. The patient has no history of smoking or known exposure to chemicals or factories. Social History - Tobacco Use: The patient has never smo ked. - Occupational History: The patient esdras es any known exposure to chemicals or work in factories. Health Maintenance - Hypercholesterolemia Management: Discu ssed a natural approach using Cayuga bergamot 1000 mg daily as an alternative to pharmaceutical medication. - Cancer Surveillance: The patient is un adrinaa regular follow-up with an oncology team for a history of lymphoma. - Urologic Surveillance: A repeat urine cytology was ordered to re-evaluate microscopic hematuria. Review of Systems - General: Reports doing quite well. - Constitutional: Denies fevers or chill s. - Cardiovascular: Denies chest pain. - Respiratory: Denies shortness of breat h. Physical Exam General: Cooperative, healthy appearing, comfortable, no acute distress and well developed Orientation: Patient oriented x3 Limitations: No limitations Head: Normal to inspection Ears: Hearing grossly normal bilaterally Nose: Normal external nose present Face and sinus: Normal facial exam Eyes: Appearance normal, both eyes and all related structures Neck: Normal visual inspection and Yes full ROM Respiratory: Normal respiratory effort and able to speak in complete sentences. Clear to auscultation bilaterally Cardiovascular: Regular rate and rhythm. Normal S1 and S2 GI: Normal to inspection. Soft to palpation and nontender Skin: No rashes or lesions noted Neuro: Patient oriented x3 Extremities: Normal to inspection Results - Labs: Recent labs show a total cholest hermila of 303 mg/dL, LDL of 208 mg/dL, and triglycerides of 76 mg/dL. - Labs: A slight leukopenia is present a nd noted to be a chronic finding. - Tests and Diagnostics: A past urine cy tology revealed rare atypical urothelial cells. - Tests and Diagnostics: A prior urologi amish workup around , including cystoscopy, was negative. Plan 1. Hypercholesterolemia The patient's cholesterol remains elevated, with a recent LDL of 208 mg/dL and total cholesterol of 303 mg/dL, although it has slightly decreased. Triglycerides are well-controlled at 76 mg/dL. The patient is reluctant to take pharmaceutical medications and prefers a natural approach. We discussed Cayuga bergamot 1000 mg daily, which the patient will research and consider starting. 2. Microscopic Hematuria The patient has persistent microscopic hematuria. A prior cytology showed rare atypical urothelial cells, but a urology workup with cystoscopy around was negative. Given the history, a repeat urine cytology will be performed today for further evaluation. Discussion Notes I discussed the patient's elevated cholesterol, noting an LDL of 208 mg/dL. Given the patient's preference for a natural approach and reluctance to use pharmaceutical medication, I mentioned Cayuga bergamot 1000 mg daily as an option, which the patient is going to research. We also addressed the ongoing microscopic hematuria; although a urology workup around was negative, a previous cytology showed rare atypical cells, so I will repeat the cytology today. I acknowledged the chronic leukopenia, which is stable and monitored by the patient's oncology team for a history of lymphoma. Patient Instructions - Your cholesterol remains high. - As we discussed, you may research and consider starting a natural supplement, Cayuga bergamot, at a dose of 1000 mg daily. - We are collecting a urine sample today to repeat a cytology test, which checks for any abnormal cells due to the trace amounts of blood in your urine. - Please continue your regular appointme nts with your cancer specialist (oncology) for your history of lymphoma. - We will determine next steps based on the results of your urine test. [facility] Medical History Gynecomastia, male Small lymphocytic lymphoma Anxiety Surgical History History of total right hip arthroplasty H/O colonoscopy H/O arthroscopic knee surgery H/O left inguinal hernia repair Social History Housing: House Patient Tobacco Use Status: Never used Tobacco e-Cigarette/Vaping Use: Never Used Second Hand Smoke Exposure: No service: No Current occupational status: employed Current occupation: [employer] Current occupational exposures/hazards: No Cognitive needs: No Hearing needs: No Vision needs: No Questionnaire PHQ-9 Over the last 2 weeks, how often have you been bothered by any of the following problems? 1. Little interest or pleasure in doing things: not at all 2. Feeling down, depressed, or hopeless: not at all 3. Trouble falling or staying asleep, or sleeping too much: not at all 4. Feeling tired or having little energy: not at all 5. Poor appetite or overeating: not at all 6. Feeling bad about yourself - or that you are a failure or have let yourself or your family down: not at all 7. Trouble concentrating on things, such as reading the newspaper or watching television: not at all 8. Moving or speaking so slowly that other people could have noticed. Or the opposite - being so fidgety or restless that you have been moving around a lot more than usual: not at all 9. Thoughts that you would be better off or of hurting yourself in some way: not at all Total score: 0 Depression Screening Interpretation: Negative Depression Screening Done: Yes 46959 - PHQ-9 Billing: Yes Source: Developed by Drs. Dany Mayberry, Bhavna Rowe, Syed Hagen and colleagues, with an educational genna from [employer]. Thrive Questionnaire Date Thrive assessed: 02/07/25 Do you have trouble getting transportation to medical appointments?: No Do you have trouble paying your heating and electricity bill?: No Do you have trouble taking care of your child, family member or friend?: No Do you have trouble with day-to-day activities such as bathing, preparing meals, shopping, managing finances, etc.?: No Are you currently unemployed and looking for a job?: No Are you interested in more education?: No Please select the resources that you would like help with: None Currently or been in a relationship where the following occur: No concerns reported THRIVE Score: 0 RUEL-7 AMB Questionnaire RUEL-7 Date RUEL - 7 assessed: 02/14/25 Source: Developed by Drs. Dany Myaberry, Bhavna Rowe, Syed Hagen and colleagues, with an educational genna from [employer]. Physical exam (Primary Care) Vital Signs: Last Vital Signs Pulse 72 08/16/25 10:03 BP 140/88 H 08/16/25 10:03 Pulse Ox 96 08/16/25 10:03 Oxygen Delivery Method Room Air 08/16/25 10:03 BMI result Body Mass Index 23.7 Tobacco/Smoking Status: Tobacco use Status Tobacco use date assessed 08/16/25 08/16/25 10:09 Patient Tobacco Use Status Never used Tobacco 08/16/25 10:04 e-Cigarette/Vaping Use Never Used 08/16/25 10:04 PHQ-9: PHQ-9 Score PHQ-9: Total score 0 08/16/25 10:09 Depression Screening Interpretation: Negative Thrive Assessment: Date of Thrive Assessment Date Thrive assessed 02/07/25 08/16/25 10:04 Currently or been in a relationship where the following occur: No concerns reported Coding Level of Care Code Est Pt Level 3 (00245) Diagnoses Microscopic hematuria R31.29 Dyslipidemia E78.5 Additional Codes PHQ-9 - 75806 - PHQ-9 Billing: Yes ([id number]) Assessment & Plan Assessment & Plan (1) Microscopic hematuria: Code(s): R31.29 - Other microscopic hematuria Category: Medical (2) Dyslipidemia: Code(s): E78.5 - Hyperlipidemia, unspecified Category: Medical Plan . Orders: Orders Urine Cytology Today R31.29 - Other microscopic hematuria UA CC w/rflx Micro + Cult Today R31.29 - Other microscopic hematuria
[2025-08-16 10:03] VITALS: BP 140/88; PULSE 72; O2SAT 96; BMI 23.7
--- OUTSIDE RECORDS SUMMARY | 2025-08-16 11:09 | XMS_ITS | Encounter Summary ---
Author Organization [facility] Address [address] [place] [address] Phone Care Team Providers Care Fieldwork Coordinator Name Role Phone Yomi Smith DO Unavailable Jesse Weinstein MD Unavailable Kaelyn Zamora SURGICAL MANAGER Unavailable + Polina ConroySW Unavailable [phone] Jeremie Ivey SUPERVISOR DEHYDROGENATION Primary Care Provider + Encounter Details Date Type Department Care Team (Late st Contact Info) Description 11/07/2024 Documentation [facility], Division of Hematologic Oncology, [facility] [place] [address] [facility], 7th [place] [address] Shonna Forte RN [address] [facility] [place] [address] [email or web address] Social History Tobacco Use Types Packs/Day Years [...] 10:10 AM EST Blood Draw Laboratory Services, [address], 2nd [place] [address] Jesse Weinstein MD [address] [place] [address] [email or web address] 11/16/2025 11:00 AM EST Office Visit [facility], Division of Hematologic Oncology, [address], 7th [place] [address] Jesse Weinstein MD [address] [place] [address] [email or web address] documented as of this encounter Visit Diagnoses Not on filedocumented in this encounter Care Teams Fieldwork Coordinator Relationship Specialty Start Date End Date Jeremie Ivey NP [address] [facility] [place] [address] PCP - General Nurse Practitioner 11/26/22 Yomi Smith DO [address] [place] [address], [address] [place] [address] [email or web address] Internal Medicine 08/11/22 Jesse Weinstein MD [address] [place] [address] [email or web address] Primary Oncologist Medical Oncology 08/20/22 Kaelyn Zamora CNP [address] [place] [address] [email or web address] Nurse Practitioner Medical Oncology 08/20/22 Polina Conroy, SLITTING MACHINE OPERATOR HELPER [address] [place] [address] [email or web address] Computer Builder Oncology 09/11/22 documented as of this encounter Additional Source Comments The information contained in this document represents components of the legal health record. It is not the complete legal health record.[facility]
--- OUTSIDE RECORDS SUMMARY | 2025-08-16 11:09 | XMS_ITS | Encounter Summary ---
Author Organization [facility] Address [address] [facility] [address] [place] [address] Phone Care Team Providers Care Crm Solution Architect Name Role Phone Yomi Smith DO Unavailable [phone] Jesse Weinstein MD Unavailable Kaelyn Zamora GUINEA PIG BREEDER Unavailable + Polina Conroy RESEARCH ASSOCIATE PROFESSOR Unavailable [phone] Jeremie Ivey MENTAL HEALTH CONSULTANT Primary Care Provider + Encounter Details Date Type Department Care Team (Late st Contact Info) Description 03/03/2023 Procedure Pass [facility] Periop [address] [place] [address] Social History Tobacco Use Types Packs/Day Years [...] 5:00 PM EDT Mylene Cabezas RN * [place] Suicide Severity Rating Scale (Screener/Recent Self-Report) Question [...] 10:10 AM EST Blood Draw Laboratory Services, [address], 2nd [place] [address] Jesse Weinstein MD [address] [place] [address] [email or web address] 11/16/2025 11:00 AM EST Office Visit [facility] for [facility], Division of Hematologic Oncology, [facility] [address], 7[address] [place] [address] Jesse Weinstein MD [address] [place] [address] [email or web address] documented as of this encounter Visit Diagnoses Not on filedocumented in this encounter Additional Health Concerns Infection Onset Date Last Indicated Resolved Time COVID-19 Comment:Per Note Documentation 07/12/2024 07/11/2024 10:32 AM EST documented as of this encounter Care Teams Crm Solution Architect Relationship Specialty Start Date End Date Jeremie Ivey NP [facility] [place] [address] PCP - General Nurse Practitioner 11/26/22 Yomi Smith DO [address] [place] [address], [address] [place] [address] [email or web address] Internal Medicine 08/11/22 Jesse Weinstein MD [address] [place] [address] [email or web address] Primary Oncologist Medical Oncology 08/20/22 Kaelyn Zamora CNP [address] [place] [address] [email or web address] Nurse Practitioner Medical Oncology 08/20/22 Polina Conroy LICSW [address] [place] [address] [email or web address] Box Spring Frame Builder Oncology 09/11/22 documented as of this encounter Additional Source Comments The information contained in this document represents components of the legal health record. It is not the complete legal health record.[facility]
--- OUTSIDE RECORDS SUMMARY | 2025-08-16 11:09 | XMS_ITS | Encounter Summary ---
Author Organization [facility] Address [address] [place] [address] Phone Care Team Providers Care Wrapper Selector Name Role Phone Yomi Smith DO Unavailable [phone] Jesse Weinstein MD Unavailable Kaelyn Zamora HAT FORMER Unavailable + Polina ConroySW Unavailable [phone] Jeremie Ivey LETTER OF CREDIT CLERK Primary Care Provider + Encounter Details Date Type Department Care Team (Late st Contact Info) Description 12/01/2023 Documentation [facility], Division of Hematologic Oncology, [facility] [place] [address] [facility], 7th [place] [address] Shonna Forte RN [address] [facility] [place] [address] [email or web address] Social History Tobacco Use Types Packs/Day Years [...] AM EST Blood Draw Laboratory Services, [address]nd [place] [address] Jesse Weinstein MD [address] [place] [address] [email or web address] 11/16/2025 11:00 AM EST Office Visit [facility], Division of Hematologic Oncology, [address], [address] [place] [address] Jesse Weinstein MD [address] [place] [address] [email or web address] documented as of this encounter Visit Diagnoses Not on filedocumented in this encounter Additional Health Concerns Infection Onset Date Last Indicated Resolved Time COVID-19 Comment:Per Note Documentation 07/12/2024 07/11/2024 10:32 AM EST documented as of this encounter Care Teams Wrapper Selector Relationship Specialty Start Date End Date Jeremie Ivey NP [address] [place] [address] PCP - General Nurse Practitioner 11/26/22 Yomi Smith DO [address] [place] [address], [address] [place] [address] [email or web address] Internal Medicine 08/11/22 Jesse Weinstein MD [address] [place] [address] [email or web address] Primary Oncologist Medical Oncology 08/20/22 Kaelyn Zamora CNP [address] [place] [phone] [email or web address] Nurse Practitioner Medical Oncology 08/20/22 Polina Conroy, HEEL PACKER[address] [address] [email or web address] Restaurant Management Internship Oncology 09/11/22 documented as of this encounter Additional Source Comments The information contained in this document represents components of the legal health record. It is not the complete legal health record.[facility]
--- OUTSIDE RECORDS SUMMARY | 2025-08-16 11:09 | XMS_ITS | Encounter Summary ---
Author Organization [facility] Address [address] [facility] [address] [place] [address] Phone Care Team Providers Care Lacing Cutter Name Role Phone Jyoti Dano MCCANN Primary Care Provider [phone] Yomi Smith DO Primary Care Provider Yomi Smith DO Unavailable [phone] Jesse Weinstein MD Unavailable Kaelyn Zamora INFRASTRUCTURE ADMINISTRATOR Unavailable + Polina Conroy MAIL WEIGHER Unavailable [phone] Jeremie Ivey NP Primary Care Provider + Encounter Details Date Type Department Care Team (Late st Contact Info) Description 08/11/2017 Ancillary Orders [facility] [address] [place] [address] Tanvir Trammell DO [address] [place] [address] [facility] [place] [address] [email or web address] Right hip pain Social History Tobacco Use [...] 10:10 AM EST Blood Draw Laboratory Services, [address], 2nd [place] [address] Jesse Weinstein MD [address] [place] [address] Florence@[facility] 11/16/2025 11:00 AM EST Office Visit [facility], Division of Hematologic Oncology, [address], 7th [place] [address] Jesse Weinstein MD [address] [place] [address] Florence@[facility] documented as of this encounter Results * [...] documented as of this encounter Care Teams Lacing Cutter Relationship Specialty Start Date End Date aDno Montes DO PCP - General Family Medicine 07/16/17 07/31/22 Yomi Smith DO [address] [place] [address], [address] [place] [address] [email or web address] PCP - General Internal Medicine 08/01/22 11/25/22 Jeremie Ivey, ALIZA [address] [place] [address] [place] [address] PCP - General Nurse Practitioner 11/26/22 Yomi Smith DO [address] [place] [address], [facility] 20 [place] [address] [email or web address] Internal Medicine 08/11/22 Jesse Weinstein MD [address] [place] [address] [email or web address] Primary Oncologist Medical Oncology 08/20/22 Kaelyn Zamora CNP [address] [place] [address] [email or web address] Nurse Practitioner Medical Oncology 08/20/22 Polina Conroy, [address] [address] Vinayak@[email or web address] Vegetable Ii Farmworker Oncology 09/11/22 documented as of this encounter Additional Source Comments The information contained in this document represents components of the legal health record. It is not the complete legal health record.[facility]
--- OUTSIDE RECORDS SUMMARY | 2025-08-16 11:09 | XMS_ITS | Encounter Summary ---
Author Organization [facility] Address [address] [facility] [address] [place] [address] Phone Care Team Providers Care Tobacco Stemmer Machine Name Role Phone Yomi Smith DO Primary Care Provider Yomi Smith DO Unavailable [phone] Jesse Weinstein MD Unavailable Kaelyn Zamora BIOMEDICAL SPECIALIST Unavailable + Polina Conroy RN NEUROSURGICAL Unavailable [phone] Jeremie Ivey TRUCK LOADER AND UNLOADER Primary Care Provider + Encounter Details Date Type Department Care Team (Late st Contact Info) Description 09/01/2022 Procedure Pass [facility]alind Lank Imaging Department, [facility] Cancer [place], [place] 450 [facility], Floor [address]1 [place] [address] Social History Tobacco Use Types Packs/Day Years [...] 10:10 AM EST Blood Draw Laboratory Services, [facility] [address] [facility], 2nd [place] [address] Jesse Weinstein MD [address] [place] [address] [email or web address]@[email or web address] 11/16/2025 11:00 AM EST Office Visit [facility], Division of Hematologic Oncology, [address], 7th [place] [address] Jesse Weinstein MD [address] [place] [address] [email or web address]@[email or web address] documented as of this encounter Visit Diagnoses Not on filedocumented in this encounter Additional Health Concerns Infection Onset Date Last Indicated Resolved Time COVID-19 Comment:Per Note Documentation 07/12/2024 07/11/2024 10:32 AM EST documented as of this encounter Care Teams Tobacco Stemmer Machine Relationship Specialty Start Date End Date Yomi Smith DO [address] [place] [address], [facility] 20 [place] [address] [email or web address] PCP - General Internal Medicine 08/01/22 11/25/22 Jeremie Ivey NP [facility] [place] [address] PCP - General Nurse Practitioner 11/26/22 Yomi Smith DO [address] [place] [address], [address] [place] [address] [email or web address] Internal Medicine 08/11/22 Jesse Weinstein MD [address] [place] [address] [email or web address] Primary Oncologist Medical Oncology 08/20/22 Kaelyn Zamora CNP [address] [place] [address] [email or web address] Nurse Practitioner Medical Oncology 08/20/22 Polina Conroy, [address] [address] [email or web address]@[email or web address] Dye Machine Tender Oncology 09/11/22 documented as of this encounter Additional Source Comments The information contained in this document represents components of the legal health record. It is not the complete legal health record.[facility]
--- OUTSIDE RECORDS SUMMARY | 2025-08-16 11:09 | XMS_ITS | Encounter Summary ---
Author Organization [facility] Address [address] [facility] [address] [place] [address] Phone Care Team Providers Care Log Buyer Name Role Phone Rafynehal Ewaemilee DO Unavailable [phone] Jesse Weinstein MD Unavailable Kaelyn Zamora GAMES DEALER Unavailable + Polina Conroy ELECTRONIC DATA INTERCHANGE SPECIALIST Unavailable [phone] Jeremie Ivey NP Primary Care Provider + Encounter Details Date Type Department Care Team (Late st Contact Info) Description 08/27/2023 Procedure Pass Rosalind Lank Imaging Department, [facility] [place], [place] 450 [facility], Floor [address]1 [place] [address] Social History Tobacco Use Types Packs/Day Years [...] 10:10 AM EST Blood Draw Laboratory Services, [address], 2nd [place] [address] Jesse Weinstein MD [address] [place] [address] Florence@[facility] 11/16/2025 11:00 AM EST Office Visit [facility], Division of Hematologic Oncology, [address], 7th [place] [address] Jesse Weinstein MD [address] [place] [address] Florence@[facility] documented as of this encounter Visit Diagnoses Not on filedocumented in this encounter Additional Health Concerns Infection Onset Date Last Indicated Resolved Time COVID-19 Comment:Per Note Documentation 07/12/2024 07/11/2024 10:32 AM EST documented as of this encounter Care Teams Log Buyer Relationship Specialty Start Date End Date Jeremie Ivey NP [address] [address] [place] [address] PCP - General Nurse Practitioner 11/26/22 Yomi Smith DO [address] [place] [address], [address] [place] [address] [email or web address] Internal Medicine 08/11/22 Jesse Weinstein MD [address] [place] [address] [email or web address] Primary Oncologist Medical Oncology 08/20/22 Kaelyn Zamora CNP [address] [place] [address] [email or web address] Nurse Practitioner Medical Oncology 08/20/22 Polina Conroy, [address] [address] [email or web address]@[facility] Staff Internist Office Based Only Oncology 09/11/22 documented as of this encounter Additional Source Comments The information contained in this document represents components of the legal health record. It is not the complete legal health record.[facility]
--- OUTSIDE RECORDS SUMMARY | 2025-08-16 11:09 | XMS_ITS | Encounter Summary ---
Author Organization [facility] Address [address] [facility] [address] [place] [address] Phone Care Team Providers Care Exchange Trouble Shooter Name Role Phone Yomi Smith DO Primary Care Provider Yomi Smith DO Unavailable [phone] Jesse Weinstein MD Unavailable Kaelyn Zamora COLOR SPECIALIST Unavailable + Polina Conroy COIN PURSE FRAMER Unavailable [phone] Jeremie Ivey SUPERVISOR PLEATING Primary Care Provider + Encounter Details Date Type Department Care Team (Late st Contact Info) Description 08/04/2022 Procedure Pass [facility] 30 [place] [address] Social History Tobacco Use Types Packs/Day Years [...] EST Blood Draw Laboratory Services, [facility] [place] [address] [place] [address], 2nd [place] [address] Jesse Weinstein MD [address] [address] Florence@[facility] 11/16/2025 11:00 AM EST Office Visit [facility], Division of Hematologic Oncology, [facility] [place] [address] [facility], 7th [place] [address] Jesse Weinstein MD [address] [place] [address] Florence@[facility] documented as of this encounter Visit Diagnoses Not on filedocumented in this encounter Additional Health Concerns Infection Onset Date Last Indicated Resolved Time COVID-19 Comment:Per Note Documentation 07/12/2024 07/11/2024 10:32 AM EST documented as of this encounter Care Teams Exchange Trouble Shooter Relationship Specialty Start Date End Date Yomi Smith DO [address] [place] [address], [address] [place] [address] [email or web address] PCP - General Internal Medicine 08/01/22 11/25/22 Jeremie Ivey, ALIZA [facility] [address] [place] [address] PCP - General Nurse Practitioner 11/26/22 Yomi Smith DO [address] [place] [address], [address] [place] [address] [email or web address] Internal Medicine 08/11/22 Jesse Weinstein MD [address] [place] [address] [email or web address] Primary Oncologist Medical Oncology 08/20/22 Kaelyn Zamora CNP [address] [place] [address] [email or web address] Nurse Practitioner Medical Oncology 08/20/22 Polina Conroy, [address] [address] Vinayak@[email or web address] Lead Sustainability Specialist Oncology 09/11/22 documented as of this encounter Additional Source Comments The information contained in this document represents components of the legal health record. It is not the complete legal health record.[facility]
--- OUTSIDE RECORDS SUMMARY | 2025-08-16 11:09 | XMS_ITS | Encounter Summary ---
Author Organization [facility] Address [address] [place] [address] Phone Care Team Providers Care Ear Muff Assembler Name Role Phone Rafynehal Ewaemilee DO Unavailable [phone] Jesse Weinstein MD Unavailable Kaelyn Zamora INFUSION NURSE Unavailable + Polina Conroy EXECUTIVE COMMUNICATIONS MANAGER Unavailable [phone] Jeremie Ivey NP Primary Care Provider + Encounter Details Date Type Department Care Team (Late st Contact Info) Description 08/27/2023 Procedure Pass Rosalind Lank Imaging Department, [facility] [place], [place] 450 [facility], Floor [address]1 [place] [address] Social History Tobacco Use Types Packs/Day Years [...] AM EST Blood Draw Laboratory Services, [address], 2nd [place] [address] Jesse Weinstein MD [address] [place] [address] [email or web address] 11/16/2025 11:00 AM EST Office Visit [facility], Division of Hematologic Oncology, [address], 7th [place] [address] Jesse Weinstein MD [address] [place] [address] Florence@[email or web address] documented as of this encounter Visit Diagnoses Not on filedocumented in this encounter Additional Health Concerns Infection Onset Date Last Indicated Resolved Time COVID-19 Comment:Per Note Documentation 07/12/2024 07/11/2024 10:32 AM EST documented as of this encounter Care Teams Ear Muff Assembler Relationship Specialty Start Date End Date Jeremie Ivey NP [address] [facility] [address] [place] [address] PCP - General Nurse Practitioner 11/26/22 Yomi Smith DO [address] [place] [address], [address] [place] [address] [email or web address] Internal Medicine 08/11/22 Jesse Weinstein MD [address] [place] [address] Florence@[email or web address] Primary Oncologist Medical Oncology 08/20/22 Kaelyn Zamora CNP [address] [place] [address] [email or web address] Nurse Practitioner Medical Oncology 08/20/22 Polina Conroy, [address] [address] Vinayak@[facility] Clinical Operations Leader Oncology 09/11/22 documented as of this encounter Additional Source Comments The information contained in this document represents components of the legal health record. It is not the complete legal health record.[facility]
--- OUTSIDE RECORDS SUMMARY | 2025-08-16 11:09 | XMS_ITS | Encounter Summary ---
Author Organization [facility] Address [address] [facility] [address] [place] [address] Phone Care Team Providers Care Housing Management Officer Name Role Phone Rafynehal Ewaemilee DO Unavailable [phone] Jesse Weinstein MD Unavailable Kaelyn Zamora PC TECH Unavailable + Polina Conroy MEMBER SERVICE REPRESENTATIVE Unavailable [phone] Jeremie Ivey NP Primary Care Provider + Encounter Details Date Type Department Care Team (Late st Contact Info) Description 08/27/2023 Procedure Pass Rosalind Lank Imaging Department, [facility] [place], [place] 450 [facility], Floor [address]1 [place] [address] Social History Tobacco Use Types Packs/Day Years [...] 10:10 AM EST Blood Draw Laboratory Services, [address], 2nd [place] [address] Jesse Weinstein MD [address] [place] [address] Florence@[facility] 11/16/2025 11:00 AM EST Office Visit [facility], Division of Hematologic Oncology, [address], 7th [place] [address] Jesse Weinstein MD [address] [place] [address] Florence@[facility] documented as of this encounter Visit Diagnoses Not on filedocumented in this encounter Additional Health Concerns Infection Onset Date Last Indicated Resolved Time COVID-19 Comment:Per Note Documentation 07/12/2024 07/11/2024 10:32 AM EST documented as of this encounter Care Teams Housing Management Officer Relationship Specialty Start Date End Date Jeremie Ivey NP [address] [facility] [address] [place] [address] PCP - General Nurse Practitioner 11/26/22 Yomi Smith DO [address] [place] [address], [address] [place] [address] [email or web address] Internal Medicine 08/11/22 Jesse Weinstein MD [address] [place] [address] Florence@[email or web address] Primary Oncologist Medical Oncology 08/20/22 Kaelyn Zmaora CNP [address] [place] [address] [email or web address] Nurse Practitioner Medical Oncology 08/20/22 Polina Conroy, [address] [address] [email or web address]@[email or web address] Car Chaser Oncology 09/11/22 documented as of this encounter Additional Source Comments The information contained in this document represents components of the legal health record. It is not the complete legal health record.[facility]
--- OUTSIDE RECORDS SUMMARY | 2025-08-16 11:09 | XMS_ITS | Encounter Summary ---
Author Organization [facility] Address [address] [facility] [address] [place] [address] Phone Care Team Providers Care Educational Programming Director Name Role Phone Yomi Smith DO Primary Care Provider Yomi Smith DO Unavailable [phone] Jesse Weinstein MD Unavailable Kaelyn Zamora DIRECTOR OF FOOD AND NUTRITION Unavailable + Polina Conroy SMALL BRAKE FORM OPERATOR Unavailable [phone] Jeremie Ivey RADIO TOWER TECHNICIAN Primary Care Provider + Encounter Details Date Type Department Care Team (Late st Contact Info) Description 09/01/2022 Procedure Pass Rosalind Lank Imaging Department, [facility] [place], [place] 450 [facility], Floor [address]1 [place] [address] Social History Tobacco Use Types Packs/Day Years [...] 10:10 AM EST Blood Draw Laboratory Services, [facility] [address] [facility], 2nd [place] [address] Jesse Weinstein MD [address] [place] [address] [email or web address]@[email or web address] 11/16/2025 11:00 AM EST Office Visit [facility], Division of Hematologic Oncology, [address], 7th [place] [address] Jesse Weinstein MD [address] [place] [address] Florence@[facility] documented as of this encounter Visit Diagnoses Not on filedocumented in this encounter Additional Health Concerns Infection Onset Date Last Indicated Resolved Time COVID-19 Comment:Per Note Documentation 07/12/2024 07/11/2024 10:32 AM EST documented as of this encounter Care Teams Educational Programming Director Relationship Specialty Start Date End Date Yomi Smith DO [address] [place] [address], [facility] 20 [place] [address] [email or web address] PCP - General Internal Medicine 08/01/22 11/25/22 Jeremie Ivey NP [facility] [place] [address] PCP - General Nurse Practitioner 11/26/22 Yomi Smith DO [address] [place] [address], [address] [place] [address] [email or web address] Internal Medicine 08/11/22 Jesse Weinstein MD [address] [place] [address] Florence@[email or web address] Primary Oncologist Medical Oncology 08/20/22 Kaelyn Zamora CNP [address] [place] [address] [email or web address] Nurse Practitioner Medical Oncology 08/20/22 Polina Conroy, [address] [address] Vinayak@[facility] C Consultant Oncology 09/11/22 documented as of this encounter Additional Source Comments The information contained in this document represents components of the legal health record. It is not the complete legal health record.[facility]
--- OUTSIDE RECORDS SUMMARY | 2025-08-16 11:09 | XMS_ITS | Encounter Summary ---
Author Organization [facility] Address [address] [facility] [address] [place] [address] Phone Care Team Providers Care Slash Trimmer Name Role Phone Yomi Smith DO Primary Care Provider Yomi Smith DO Unavailable [phone] Jesse Weinstein MD Unavailable Kaelyn Zamora ENGINEERING COORDINATOR Unavailable + Polina Conroy BERRY PLANTER Unavailable [phone] Jeremie Ivey CROWN WHEEL ASSEMBLER Primary Care Provider + Encounter Details Date Type Department Care Team (Late st Contact Info) Description 09/01/2022 Procedure Pass Rosalind Lank Imaging Department, [facility] [place], [place] 450 [facility], Floor [address]1 [place] [address] Social History Tobacco Use Types Packs/Day Years [...] 10:10 AM EST Blood Draw Laboratory Services, [facility] 450 [facility], 2nd [place] [address] Jesse Weinstein MD [address] [place] [address] Florence@[facility] 11/16/2025 11:00 AM EST Office Visit [facility], Division of Hematologic Oncology, [address], 7th [place] [address] Jesse Weinstein MD [address] [place] [address] Florence@[facility] documented as of this encounter Visit Diagnoses Not on filedocumented in this encounter Additional Health Concerns Infection Onset Date Last Indicated Resolved Time COVID-19 Comment:Per Note Documentation 07/12/2024 07/11/2024 10:32 AM EST documented as of this encounter Care Teams Slash Trimmer Relationship Specialty Start Date End Date Yomi Smith DO [address] [place] [address], [facility] 20 [place] [address] [email or web address] PCP - General Internal Medicine 08/01/22 11/25/22 Jeremie Ivey NP [facility] [place] [address] PCP - General Nurse Practitioner 11/26/22 Yomi Smith DO [address] [place] [address], [address] [place] [address] [email or web address] Internal Medicine 08/11/22 Jesse Weinstein MD [address] [place] [address] Florence@[facility] Primary Oncologist Medical Oncology 08/20/22 Kaelyn Zamora CNP [address] [place] [address] [email or web address] Nurse Practitioner Medical Oncology 08/20/22 Polina Conroy, [address] [address] Vinayak@[facility] Supervisor Motor Vehicle Assembly Oncology 09/11/22 documented as of this encounter Additional Source Comments The information contained in this document represents components of the legal health record. It is not the complete legal health record.[facility]
--- OUTSIDE RECORDS SUMMARY | 2025-08-16 11:09 | XMS_ITS | Encounter Summary ---
Author Organization [facility] Address [address] [place] [address] Phone Care Team Providers Care Conference Services Director Name Role Phone Sarah Ewaemilee DO Unavailable [phone] Jesse Weinstein MD Unavailable Kaelyn Zamora MANUFACTURING COORDINATOR Unavailable + Polina Conroy SEWING ROOM SUPERVISOR Unavailable [phone] Jeremie Ivey GLASS ROBOT OPERATOR Primary Care Provider + Encounter Details Date Type Department Care Team (Late st Contact Info) Description 03/03/2023 Procedure Pass [facility] Radiology [address] [place] [address] Social History Tobacco Use Types Packs/Day Years [...] 5:00 PM EDT Mylene Cabezas RN * [place] Suicide Severity Rating Scale (Screener/Recent Self-Report) Question [...] AM EST Blood Draw Laboratory Services, [address], 2nd [place] [address] Jesse Weinstein MD [address] [place] [address] [email or web address] 11/16/2025 11:00 AM EST Office Visit [facility], Division of Hematologic Oncology, [address], 7th [place] [address] Jesse Weinstein MD [address] [place] [address] [email or web address] documented as of this encounter Visit Diagnoses Not on filedocumented in this encounter Additional Health Concerns Infection Onset Date Last Indicated Resolved Time COVID-19 Comment:Per Note Documentation 07/12/2024 07/11/2024 10:32 AM EST documented as of this encounter Care Teams Conference Services Director Relationship Specialty Start Date End Date Jeremie Ivey NP [facility] [place] [address] PCP - General Nurse Practitioner 11/26/22 Yomi Smith DO [address] [place] [address], [address] [place] [address] [email or web address] Internal Medicine 08/11/22 Jesse Weinstein MD [address] [place] [address] [email or web address] Primary Oncologist Medical Oncology 08/20/22 Kaelyn Zamora CNP [address] [place] [address] [email or web address] Nurse Practitioner Medical Oncology 08/20/22 Polina Conroy, SEWING ROOM SUPERVISOR[address] [address] [email or web address] Prep Manager Oncology 09/11/22 documented as of this encounter Additional Source Comments The information contained in this document represents components of the legal health record. It is not the complete legal health record.[facility]
--- OUTSIDE RECORDS SUMMARY | 2025-08-16 11:09 | XMS_ITS | Encounter Summary ---
Author Organization [facility] Address [address] [place] [address] Phone Care Team Providers Care State Manager Name Role Phone Dano Montes DO Primary Care Provider [phone] Yomi Smith DO Primary Care Provider [phone] Yomi Smith DO Unavailable [phone] Jesse Weinstein MD Unavailable Kaelyn Zamora STAFF NUCLEAR WEAPONS OFFICER Unavailable + Polina Conroy SYSTEMS INTEGRATOR Unavailable [phone] Jeremie Ivey NP Primary Care Provider + Encounter Details Date Type Department Care Team (Late st Contact Info) Description 08/11/2017 Ancillary Orders [facility] Medical [facility] Orthopedics & Sports Medicine [address] [place] [address] Tanvir Trammell DO [address] [place] [address] [facility] [place] [address] [email or web address] Social [...] 10:10 AM EST Blood Draw Laboratory Services, [address], 2nd [place] [address] Jesse eWinstein MD [address] [place] [address] [email or web address] 11/16/2025 11:00 AM EST Office Visit [facility], Division of Hematologic Oncology, [address], 7th [place] [address] Jesse Weinstein MD [address] [place] [address] [email or web address] documented as of this encounter Visit Diagnoses Not on filedocumented in this encounter Additional Health Concerns Infection Onset Date Last Indicated Resolved Time COVID-19 Comment:Per Note Documentation 07/12/2024 07/11/2024 10:32 AM EST documented as of this encounter Care Teams State Manager Relationship Specialty Start Date End Date Dano Montes DO PCP - General Family Medicine 07/16/17 07/31/22 Yomi Smith DO [address] [place] [address], [address] [place] [address] [email or web address] PCP - General Internal Medicine 08/01/22 11/25/22 Jeremie Ivey NP [address] [place] [address] Dr [place] [address] PCP - General Nurse Practitioner 11/26/22 Yomi Smith DO [address] [place] [address], [address] [place] [address] [email or web address] Internal Medicine 08/11/22 Jesse Weinstein MD [address] [place] [address] [email or web address] Primary Oncologist Medical Oncology 08/20/22 Kaelyn Zamora CNP [address] [place] [address] [email or web address] Nurse Practitioner Medical Oncology 08/20/22 Polina Conroy, SYSTEMS INTEGRATOR [address] [place] [address] [email or web address] Poultry Buyer Oncology 09/11/22 documented as of this encounter Additional Source Comments The information contained in this document represents components of the legal health record. It is not the complete legal health record.[facility]
--- OUTSIDE RECORDS SUMMARY | 2025-08-16 11:09 | XMS_ITS | Encounter Summary ---
Author Organization [facility] Address [address] [facility] [address] [place] [address] Phone Care Team Providers Care Cutting Inspector Name Role Phone Yomi Smith DO Primary Care Provider Yomi Smith DO Unavailable [phone] Jesse Weinstein MD Unavailable Kaelyn Zamora INHALATION THERAPY AIDE Unavailable + Polina Conroy RN PROCEDURES Unavailable [phone] Jeremie Ivey SINGEING TORCH OPERATOR Primary Care Provider + Encounter Details Date Type Department Care Team (Late st Contact Info) Description 08/04/2022 Procedure Pass [facility] [address] [place] [address] Social History Tobacco Use Types Packs/Day Years [...] EST Blood Draw Laboratory Services, [facility] [place] [address] [place] [address], 2nd [place] [address] Jesse Weinstein MD [address] [address] [email or web address] 11/16/2025 11:00 AM EST Office Visit [facility], Division of Hematologic Oncology, [facility] [place] [address] [facility], 7th [place] [address] Jesse Weinstein MD [address] [place] [address] [email or web address] documented as of this encounter Visit Diagnoses Not on filedocumented in this encounter Additional Health Concerns Infection Onset Date Last Indicated Resolved Time COVID-19 Comment:Per Note Documentation 07/12/2024 07/11/2024 10:32 AM EST documented as of this encounter Care Teams Cutting Inspector Relationship Specialty Start Date End Date Yomi Smith DO [address] [place] [address], [address] [place] [address] [email or web address] PCP - General Internal Medicine 08/01/22 11/25/22 Jeremie Ivey, ALIZ[facility] [address] [place]án [place] [address] PCP - General Nurse Practitioner 11/26/22 Yomi Smith DO [address] [place] [address], [address] [place] [address] [email or web address] Internal Medicine 08/11/22 Jesse Weinstein MD [address] [place] [address] [email or web address] Primary Oncologist Medical Oncology 08/20/22 Kaelyn Zamora CNP [address] [place] [address] [email or web address] Nurse Practitioner Medical Oncology 08/20/22 Polina Conroy, [address] [address] [email or web address] Printing Engineer Oncology 09/11/22 documented as of this encounter Additional Source Comments The information contained in this document represents components of the legal health record. It is not the complete legal health record.[facility]
--- OUTSIDE RECORDS SUMMARY | 2025-08-16 11:09 | XMS_ITS | Encounter Summary ---
Author Organization [facility] Address [address] [place] [address] Phone Care Team Providers Care Car Conditioner Name Role Phone Rafynehal Ewaemilee DO Unavailable Jesse Weinstein MD Unavailable Kaelyn Zamora DAY CAMP COUNSELOR Unavailable + Polina Conroy TUBE ROOM SUPERVISOR Unavailable [phone] Jeremie Ivey NP Primary Care Provider + Encounter Details Date Type Department Care Team (Late st Contact Info) Description 11/10/2023 Procedure Pass [facility], [facility] [place], [place] [address] [facility], Floor [address] [place] [address] Social History Tobacco Use Types Packs/Day Years [...] 10:10 AM EST Blood Draw Laboratory Services, [address], 2nd [place] [address] Jesse Weinstein MD [address] [place] [address] [email or web address] 11/16/2025 11:00 AM EST Office Visit [facility], Division of Hematologic Oncology, [address], 7th [place] [address] Jesse Weinstein MD [address] [place] [address] Florence@[email or web address] documented as of this encounter Visit Diagnoses Not on filedocumented in this encounter Additional Health Concerns Infection Onset Date Last Indicated Resolved Time COVID-19 Comment:Per Note Documentation 07/12/2024 07/11/2024 10:32 AM EST documented as of this encounter Care Teams Car Conditioner Relationship Specialty Start Date End Date Jeremie Ivey NP [address] [facility] [place] [address] [place] [address] PCP - General Nurse Practitioner 11/26/22 Yomi Smith DO [address] [place] [address], [address] [place] [address] [email or web address] Internal Medicine 08/11/22 Jesse Weinstein MD [address] [place] [address] [email or web address] Primary Oncologist Medical Oncology 08/20/22 Kaelyn Zamora CNP [address] [place] [address] [email or web address] Nurse Practitioner Medical Oncology 08/20/22 Polina Conroy, [address] [address] [email or web address]@[email or web address] Partner Alliance Manager Oncology 09/11/22 documented as of this encounter Additional Source Comments The information contained in this document represents components of the legal health record. It is not the complete legal health record.[facility]
--- OUTSIDE RECORDS SUMMARY | 2025-08-16 11:10 | XMS_ITS | Encounter Summary ---
Author Organization [facility] Address [address] [facility] [address] [place] [address] Phone Care Team Providers Care Electrician Substation Name Role Phone Yomi Smith DO Primary Care Provider Yomi Smith DO Unavailable [phone] Jesse Weinstein MD Unavailable Kaelyn Zamora PLANT TAXONOMY TEACHER Unavailable + Polina Conroy ATTACHE Unavailable [phone] Jeremie Ivey EVENT SERVICES MANAGER Primary Care Provider + Encounter Details Date Type Department Care Team (Late st Contact Info) Description 09/19/2022 Procedure Pass [facility] Imaging Department, [facility] [place] [address] [facility], [address] [place] [address] Social History Tobacco Use Types Packs/Day Years [...] 10:10 AM EST Blood Draw Laboratory Services, [facility] [address] [facility], 2nd [place] [address] Jesse Weinstein MD [address] [place] [address] [email or web address] 11/16/2025 11:00 AM EST Office Visit [facility], Division of Hematologic Oncology, [address], 7th [place] [address] Jesse Weinstein MD [address] [place] [address] [email or web address] documented as of this encounter Visit Diagnoses Not on filedocumented in this encounter Additional Health Concerns Infection Onset Date Last Indicated Resolved Time COVID-19 Comment:Per Note Documentation 07/12/2024 07/11/2024 10:32 AM EST documented as of this encounter Care Teams Electrician Substation Relationship Specialty Start Date End Date Yomi Smith DO [address] [place] [address], [facility] 20 [place] [address] [email or web address] PCP - General Internal Medicine 08/01/22 11/25/22 Jeremie Ivey NP [facility] [place] [address] PCP - General Nurse Practitioner 11/26/22 Yomi Smith DO [address] [place] [address], [address] [place] [address] [email or web address] Internal Medicine 08/11/22 Jesse Weinstein MD [address] [place] [address] [email or web address] Primary Oncologist Medical Oncology 08/20/22 Kaelyn Zamora CNP [address] [place] [address] [email or web address] Nurse Practitioner Medical Oncology 08/20/22 Polina Conroy, [address] [address] [email or web address]@[email or web address] Garde Manager Oncology 09/11/22 documented as of this encounter Additional Source Comments The information contained in this document represents components of the legal health record. It is not the complete legal health record.[facility]
--- OUTSIDE RECORDS SUMMARY | 2025-08-16 11:10 | XMS_ITS | Encounter Summary ---
Author Organization [facility] Address [address] [facility] [address] [place] [address] Phone Care Team Providers Care Zipper Measurer Name Role Phone Yomi Smith DO Primary Care Provider Yomi Smith DO Unavailable [phone] Jesse Weinstein MD Unavailable Kaelyn Zamora CORE INSERTER Unavailable + Polina Conroy MAYONNAISE MIXER Unavailable [phone] Jeremie Ivey DECORATING CONSULTANT Primary Care Provider + Encounter Details Date Type Department Care Team (Late st Contact Info) Description 09/19/2022 Procedure Pass [facility] Imaging Department, [facility] [place] [address] [facility], Floor [address]1 [place] [address] Social History Tobacco Use Types Packs/Day Years [...] 10:10 AM EST Blood Draw Laboratory Services, [facility] [address] [facility], 2nd [place] [address] Jesse Weinstein MD [address] [place] [address] [email or web address] 11/16/2025 11:00 AM EST Office Visit [facility], Division of Hematologic Oncology, [address], 7th [place] [address] Jesse Weinstein MD [address] [place] [address] Florence@[email or web address] documented as of this encounter Visit Diagnoses Not on filedocumented in this encounter Additional Health Concerns Infection Onset Date Last Indicated Resolved Time COVID-19 Comment:Per Note Documentation 07/12/2024 07/11/2024 10:32 AM EST documented as of this encounter Care Teams Zipper Measurer Relationship Specialty Start Date End Date Yomi Smith DO [address] [place] [address], [facility] 20 [place] [address] [email or web address] PCP - General Internal Medicine 08/01/22 11/25/22 Jeremie Ivey NP [facility] [place] [address] PCP - General Nurse Practitioner 11/26/22 Yomi Smith DO [address] [place] [address], [address] [place] [address] [email or web address] Internal Medicine 08/11/22 Jesse Weinstein MD [address] [place] [address] [email or web address] Primary Oncologist Medical Oncology 08/20/22 Kaelyn Zamora CNP [address] [place] [address] [email or web address] Nurse Practitioner Medical Oncology 08/20/22 Polina Conroy, [address] [address] [email or web address]@[email or web address] Accessories Repairer Oncology 09/11/22 documented as of this encounter Additional Source Comments The information contained in this document represents components of the legal health record. It is not the complete legal health record.[facility]
--- OUTSIDE RECORDS SUMMARY | 2025-08-16 11:10 | XMS_ITS | Encounter Summary ---
Author Organization [facility] Address [address] [place] [address] Phone Care Team Providers Care Flatcar Whacker Name Role Phone Jyoti Dano MCCANN Primary Care Provider [phone] Yomi Smith DO Primary Care Provider [phone] Yomi Smith DO Unavailable [phone] Jesse Weinstein MD Unavailable Kaelyn Zamora COMPOUNDING SCALER Unavailable + Polina Conroy TREE DOCTOR Unavailable [phone] Jeremie Ivey NP Primary Care Provider + Encounter Details Date Type Department Care Team (Late st Contact Info) Description 08/11/2017 Ancillary Orders [address] [address] Tanvir Trammell DO [address] [place] [address] Orthopedics & Sports Medicine, [facility] [place] [address] [email or web address] Right hip pain Social History [...] 10:10 AM EST Blood Draw Laboratory Services, [address], 2nd [place] [address] Jesse Weinstein MD [address] [place] [address] [email or web address] 11/16/2025 11:00 AM EST Office Visit [facility], Division of Hematologic Oncology, [address], [address]th [place] [address] Jesse Weinstein MD [address] [place] [address] [email or web address] documented as of this encounter Visit Diagnoses Diagnosis Right hip pain Pain in joint, pelvic region and thigh documented in this encounter Additional Health Concerns Infection Onset Date Last Indicated Resolved Time COVID-19 Comment:Per Note Documentation 07/12/2024 07/11/2024 10:32 AM EST documented as of this encounter Care Teams Flatcar Whacker Relationship Specialty Start Date End Date Dano Montes DO PCP - General Family Medicine 07/16/17 07/31/22 Yomi Smith DO [address] [place] [address], [address] [place] [id number] PCP - General Internal Medicine 08/01/22 11/25/22 Jeremie Ivey NP [facility] [place] [facility] [address] [place] [place] [address] PCP - General Nurse Practitioner 11/26/22 Yomi Simth DO [address] [place] [address], [address] [place] [address] [email or web address] Internal Medicine 08/11/22 Jesse Weinstein MD [address] [place] [address] [email or web address] Primary Oncologist Medical Oncology 08/20/22 Kaelyn Zamora CNP [address] [place] [address] [email or web address] Nurse Practitioner Medical Oncology 08/20/22 Polina Conroy, [address] [address] [email or web address] Social Services Counselor Oncology 09/11/22 documented as of this encounter Additional Source Comments The information contained in this document represents components of the legal health record. It is not the complete legal health record.[facility]
--- OUTSIDE RECORDS SUMMARY | 2025-08-16 11:10 | XMS_ITS | Encounter Summary ---
Author Organization [facility] Address [address] [facility] [address] [place] [address] Phone Care Team Providers Care Retail Service Lead Merchandiser Name Role Phone Jyoti Dano MCCANN Primary Care Provider [phone] Yomi Smith DO Primary Care Provider [phone] Yomi Smith DO Unavailable [phone] Jesse Weinstein MD Unavailable Kaelyn Zamora BOX MAKER Unavailable + Polina Conroy TECHNICAL ARCHITECT Unavailable [phone] Jeremie Ivey SQL SERVER DEVELOPER Primary Care Provider + Encounter Details Date Type Department Care Team (Late st Contact Info) Description 08/11/2017 Ancillary Orders [facility] Orthopedics & Sports Medicine 40 [place] [address] Tanvir Trammell DO [address] [place] [address] [facility] [place] [address] [email or web address] Social History Tobacco Use Types Packs/Day Years [...] 10:10 AM EST Blood Draw Laboratory Services, [address], 2nd [place] [address] Jesse Weinstein MD [address] [place] [address] [email or web address] 11/16/2025 11:00 AM EST Office Visit [facility], Division of Hematologic Oncology, [address], 7th [place] [address] Jesse Weinstein MD [address] [place] [phone] [email or web address] documented as of this encounter Visit Diagnoses Not on filedocumented in this encounter Additional Health Concerns Infection Onset Date Last Indicated Resolved Time COVID-19 Comment:Per Note Documentation 07/12/2024 07/11/2024 10:32 AM EST documented as of this encounter Care Teams Retail Service Lead Merchandiser Relationship Specialty Start Date End Date Dano Montes DO PCP - General Family Medicine 07/16/17 07/31/22 Yomi Smith DO [address] [place] [address], [address] [place] [address] PCP - General Internal Medicine 08/01/22 11/25/22 Jeremie Ievy NP [address] [facility] [address] [place] [place] [address] PCP - General Nurse Practitioner 11/26/22 Yomi Smith DO [address] [place] [address], [address] [place] [address] [email or web address] Internal Medicine 08/11/22 Jesse Weinstein MD [address] [place] [address] [email or web address] Primary Oncologist Medical Oncology 08/20/22 Kaelyn Zamora CNP [address] [place] [address] [email or web address] Nurse Practitioner Medical Oncology 08/20/22 Polina Conroy, [address] [address] [email or web address] Information Strategist Oncology 09/11/22 documented as of this encounter Additional Source Comments The information contained in this document represents components of the legal health record. It is not the complete legal health record.[facility]
--- OUTSIDE RECORDS SUMMARY | 2025-08-16 11:10 | XMS_ITS | Encounter Summary ---
Author Organization [facility] Address [address] [facility] [address] [place] [address] Phone Care Team Providers Care Medical Anthropology Director Name Role Phone Yomi Smith DO Primary Care Provider Yomi Smith DO Unavailable [phone] Jesse Weinstein MD Unavailable Kaelyn Zamora DELIVERY AIDE Unavailable + Polina Conroy VIDEO ENGINEER Unavailable [phone] Jeremie Ivey IP ARCHITECT Primary Care Provider + Encounter Details Date Type Department Care Team (Late st Contact Info) Description 11/14/2022 Telephone [facility] Angio Interventional Radiology [address] [place] [address] Amauri Mckeon, RN [address] [place] [phone] [email or web address] Social History Tobacco Use Types Packs/Day [...] 10:10 AM EST Blood Draw Laboratory Services, [facility] [address] [facility], 2nd [place] [address] Jesse Weinstein MD [address] [place] [address] [email or web address] 11/16/2025 11:00 AM EST Office Visit [facility] for Lymphoma, Division of Hematologic Oncology, [address], 7th [place] [address] Jesse Weinstein MD [address] [place] [address] [email or web address] documented as of this encounter Visit Diagnoses Not on filedocumented in this encounter Additional Health Concerns Infection Onset Date Last Indicated Resolved Time COVID-19 Comment:Per Note Documentation 07/12/2024 07/11/2024 10:32 AM EST documented as of this encounter Care Teams Medical Anthropology Director Relationship Specialty Start Date End Date Yomi Smith DO [address] [place] [address], [address] [address] PCP - General Internal Medicine 08/01/22 11/25/22 Jeremie Ivey NP [facility] [place] [address] PCP - General Nurse Practitioner 11/26/22 Yomi Smith DO [address] [place] [address], [address] [place] [address] Internal Medicine 08/11/22 Jesse Weinstein MD [address] [place] [address] [email or web address] Primary Oncologist Medical Oncology 08/20/22 Kaelyn Zamora CNP [address] [place] [address] [email or web address] Nurse Practitioner Medical Oncology 08/20/22 Polina Conroy, [address] [address] [email or web address] Engrosser Oncology 09/11/22 documented as of this encounter Additional Source Comments The information contained in this document represents components of the legal health record. It is not the complete legal health record.[facility]
--- OUTSIDE RECORDS SUMMARY | 2025-08-16 11:10 | XMS_ITS | Clinical Summary ---
Author Organization [facility] Address [address] [facility] [address] [place] [address] Phone Care Team Providers Care Track Worker Name Role Phone Yomi Smith DO Unavailable [phone] Jesse Weinstein MD Unavailable Kaelyn Zamora LLAMA FARMER Unavailable + Polina Conroy HEARING STENOGRAPHER Unavailable [phone] Jeremie Ivey NP Primary Care Provider + [...] Acalabrutinib C1 outpatient. Allopurinol transitioned to Uloric RESEARCH NURSE PRACTITIONER due to rash. Now admitted for C3 [...] Center for [facility], Division of Hematologic Oncology, [facility] [place] [address] [facility], 7th [place] [address] Kaelyn Zamora, FRANCISCO Small lymphocytic lymphoma (Primary [...] 10:10 AM EST Blood Draw Laboratory Services, [address], 2nd [place] [address] Jesse Weinstein MD [address] [place] [address] [email or web address] 11/16/2025 11:00 AM EST Office Visit [facility] for Lymphoma, Division of Hematologic Oncology, [address], 7th [place] [address] Jesse Weinstein MD [address] [place] [address] [email or web address] Health Maintenance Due Date Last [...] this topic Medical Devices Implanted Type Area Dormitory Maid Device Identifier Shelf Expiration Date Model / Serial / Lot Mesh Mesh Left: Abdomen Screw Bone 6.5x8mm Cancellous Acetabular Glad[place] Hip - [id number] Implanted:Qty: 1 on 03/03/2023 by Jeremie Vines MD at [facility] Right: Hip [employer] 11/11/2032 [id number] / / [id number] Hip Stem [id number] 57mm Size 10 127deg Accolade Ii 01 - [id number] Implanted:Qty: 1 on 03/03/2023 by Jeremei Vines MD at [facility] Right: Hip [employer] 11/07/2024 2621-1400 / / [id number] Hip 36mm 2.5 Implant Hd Alumina Ceramic Modular Delta Biolox Minus 04 - [id number] Implanted:Qty: 1 on 03/03/2023 by Jeremie Vines MD at [facility] STANDARD Right: Hip [employer] 12/20/2027 [id number] / / [id number] Acetabular Shell 62g Clusterhole 3d Surface Tritanium Trident Ii - [id number] Implanted:Qty: 1 on 03/03/2023 by Jeremie Vines MD at [facility] Right: Hip [employer] 12/09/2027 702-04-62G / / [id number] Acetabular Insert 36mm 9.4mm 0deg Trident X3 - [id number] Implanted:Qty: 1 on 03/03/2023 by Jeremie Vines MD at [facility] Right: Hip [employer] 09/30/2027 723-00-36G / / [id number] Screw Bone 6.5x20mm Low Profile - [id number] Implanted:Qty: 1 on 03/03/2023 by Jeremie Vines MD at [facility] Right: Hip [employer] 09/16/2027 [id number] / / [id number] Screw Bone 6.5x25mm Low Profile - [id number] Implanted:Qty: 1 on 03/03/2023 by Jeremie Vines MD at [facility] Right: Hip [employer] 09/24/2027 [id number] / / [id number] Procedures Procedure Name Priority [...] EDT) LDH 178 135 - 225 U/L [facility] Comment:INTERPRET WITH CAUTI ON, SPECIMEN HEMOLYZED Blood 06/05/2025 10:5 9 AM EDT 06/05/2025 11:12 AM EDT us Jesse Weinstein MD LAB BLOOD BKR ORDERABLES Final R esult [facility] [address] [place] [address] * (ABNORMAL) Comprehensive metabolic panel (06/05/2025 10:59 AM EDT) SODIUM 136 136 - 145 mmol/L [facility] POTASSIUM 4.5 3.4 - 5.1 mmol/L [facility] CHLORIDE 102 98 - 107 mmol/L [facility] CO2 24 22 - 31 mmol/L [facility] BUN 21 6 - 23 mg/dL [facility] CREATININE 1.20 0.50 - 1.20 mg/dL [facility] GLUCOSE 103(H) 70 - 100 mg/dL [facility] ALBUMIN 4.2 3.5 - 5.2 g/dL [facility] TOTAL PROTEIN 6.6 6.4 - 8.3 g/dL [facility] CALCIUM 9.3 8.8 - 10.7 mg/dL [facility] ALKALINE PHOSPHATASE 69 40 - 129 U/L [facility] TOTAL BILIRUBIN 0.6 0.2 - 1.2 mg/dL [facility] AST 31 <41 U/L [facility] ALT 20 <42 U/L [facility] GLOBULIN 2.4 2.3 - 4.2 g/dL [facility] EGFR 65 >59 mL/min/1.7 3m2 [facility] Comment:Estimated glomerular filtration rate calculated using the CKD-EPI refit equation. ANION GAP 10 7 - 17 mmol/L [facility] Blood 06/05/2025 10:5 9 AM EDT 06/05/2025 11:12 AM EDT us Jesse Weinstein MD LAB BLOOD BKR ORDERABLES Final R esult [facility] [address] [place] [address] * (ABNORMAL) CBC and differential (06/05/2025 10:59 AM EDT) WBC 4.70 4.00 - 10.00 K/uL [facility] RBC 4.48(L) 4.50 - 6.40 M/uL [facility] HGB 13.8 13.5 - 18.0 g/dL [facility] HCT 41.2 40.0 - 54.0 % [facility] PLT 180 150 - 450 K/uL [facility] MCV 92.0 80.0 - 100.0 fL [facility] MCH 30.8 27.0 - 32.0 pg [facility] MCHC 33.5 32.0 - 36.0 g/dL [facility] RDW 12.6 11.5 - 14.5 % [facility] MPV 9.6 8.4 - 12.0 fL [facility] NRBC 0.00 0 /100 WBCs [facility] ABSOLUTE NRBC 0.00 0 K/uL [facility] DIFF METHOD Auto [facility] NEUTS 63.0 48.0 - 76.0 % [facility] LYMPHS 26.2 18.0 - 41.0 % [facility] MONOS 8.9 4.0 - 11.0 % [facility] EOS 1.1 0.0 - 5.0 % [facility] BASOS 0.6 0.0 - 1.5 % [facility] % IMMATURE GRANS 0.2 0.0 - 1.0 % [facility] ABSOLUTE NEUTS 2.96 1.92 - 7.60 K/uL [facility] ABSOLUTE LYMPHS 1.23 0.72 - 4.10 K/uL [facility] ABSOLUTE MONOS 0.42 0.16 - 1.10 K/uL [facility] ABSOLUTE EOS 0.05 0.00 - 0.50 K/uL [facility] ABSOLUTE BASOS 0.03 0.00 - 0.15 K/uL [facility] ABS IMMATURE GRANS 0.01 0.00 - 0.10 K/uL [facility] Blood 06/05/2025 10:5 9 AM EDT 06/05/2025 11:12 AM EDT us Jesse Weinstein MD LAB BLOOD BKR ORDERABLES Final R esult Performing Organization Address [facility] Co de Phone Number [facility] [address] [place] [address] * Beta-2 microglobulin, blood (06/05/2025 10:59 AM EDT) BETA 2 MICROGLOBULIN 1.7 0.8 - 2.2 mg/L [facility] Blood 06/05/2025 10:5 9 AM EDT 06/05/2025 11:12 AM EDT us Jesse Weinstein MD LAB BLOOD BKR ORDERABLES Final R esult Performing Organization Address [facility] de Phone Number [facility] [address] [place] [address] * Hepatitis C Antibody with Reflex to HCV, RNA quantitative Real-Time PCR (09/04/2022 4:13 PM EST) HCV Ab Negative Negative [facility] Comment: (NOTE) Swstqd-td-ilgzry ratio is <1.00. Blood 09/04/2022 4:13 PM EST 09/04/2022 4:54 PM EST us Jesse Weinstein MD LAB BLOOD BKR ORDERABLES Final R esult Performing Organization Address City/[facility] Co de Phone Number [facility] [address] [place] [place] [address] from Last 3 Months or Most Recently Relevant to Health Maintenance Insurance [facility] MEDICARE PPO BLUE REPLACEMENT [facility] MEDICARE PPO BLUE REPLACEMENT [facility]ICARE PPO BLUE REPLACEMENT [facility] MEDICARE PPO BLUE REPLACEMENT [facility] MEDICARE PPO BLUE REPLACEMENT [facility] MEDICARE PPO BLUE [place]AC[place]AC[place] Advance Directives For more information, please contact: [phone] (9AM - 5PM Juli/[facility], Thursday-Thursday) Documents on File Type Date Recorded Patient Implementation Consultant Expl anation Healthcare Proxy 11/24/2022 4:12 PM [...] to PA ( patricia robles) Care Teams Track Worker Relationship Specialty Start Date End Date Jeremie Ivey NP [address] [facility] [address] PCP - General Nurse Practitioner 11/26/22 Yomi Smith DO [address] [place] [address], [address] [place] [address] Internal Medicine 08/11/22 Jesse Weinstein MD [address] [place] [address] [email or web address] Primary Oncologist Medical Oncology 08/20/22 Kaelyn Zamora CNP [address] [place] [address] [email or web address] Nurse Practitioner Medical Oncology 08/20/22 Polina Conroy, JAZMIN [address] [place] [address] [email or web address] Automobile Radio Repairer Oncology 09/11/22 Additional Source Comments The information contained in this document represents components of the legal health record. It is not the complete legal health record.[facility]
--- OUTSIDE RECORDS SUMMARY | 2025-08-16 11:10 | XMS_ITS | Encounter Summary ---
Author Organization [facility] Address [address] [facility] [address] [place] [address] Phone Care Team Providers Care Loom Cleaner Name Role Phone Yomi Smith DO Primary Care Provider Yomi Smith DO Unavailable [phone] Jesse Weinstein MD Unavailable Kaelyn Zamora ASSEMBLY MACHINE FEEDER Unavailable + Polina Conroy SUPERVISOR INDUSTRIAL ARTS EDUCATION Unavailable [phone] Jeremie Ivey INSULATION EXTRUDER OPERATOR Primary Care Provider + Encounter Details Date Type Department Care Team (Late st Contact Info) Description 09/19/2022 Procedure Pass Rosal[facility] L[facility] Imaging Department, [facility] [place] [address] [facility], Floor [address]1 [place] [address] Social History Tobacco Use Types Packs/Day Years [...] 10:10 AM EST Blood Draw Laboratory Services, [facility] [address] [facility], 2nd [place] [address] Jesse Weinstein MD [address] [place] [address] [email or web address] 11/16/2025 11:00 AM EST Office Visit Center for Lymphoma, Division of Hematologic Oncology, [address], 7th [place] [address] Jesse Weinstein MD [address] [place] [address] [email or web address] documented as of this encounter Visit Diagnoses Not on filedocumented in this encounter Additional Health Concerns Infection Onset Date Last Indicated Resolved Time COVID-19 Comment:Per Note Documentation 07/12/2024 07/11/2024 10:32 AM EST documented as of this encounter Care Teams Loom Cleaner Relationship Specialty Start Date End Date Yomi Smith DO [address] [place] [address], [facility] [address] [place] [address] [email or web address] PCP - General Internal Medicine 08/01/22 11/25/22 Jeremie Ivey NP [facility] [place] [address] PCP - General Nurse Practitioner 11/26/22 Yomi Smith DO [address] [place] [address], [address] [place] [address] [email or web address] Internal Medicine 08/11/22 Jesse Weinstein MD [address] [place] [address] [email or web address] Primary Oncologist Medical Oncology 08/20/22 Kaelyn Zamora CNP [address] [place] [address] [email or web address] Nurse Practitioner Medical Oncology 08/20/22 Polina Conroy, [address] [address] [email or web address] Quality Assurance Inspector Oncology 09/11/22 documented as of this encounter Additional Source Comments The information contained in this document represents components of the legal health record. It is not the complete legal health record.[facility]
--- OUTSIDE RECORDS SUMMARY | 2025-08-16 11:10 | XMS_ITS ---
Author Organization [facility] Address [address] [facility] [address] [place] [address] Phone Care Team Providers Care Dental Claims Processor Name Role Phone Yomi Smith DO Unavailable [phone] Jesse Weinstein MD Unavailable Kaelyn Zamora EAR PULL MACHINE OPERATOR Unavailable + Polina ConroySW Unavailable [phone] Jeremie Ivey OCCUPATIONAL HEALTH PROFESSIONAL Primary Care Provider + Active Problems Problem [...] Acalabrutinib C1 outpatient. Allopurinol transitioned to Uloric STRATEGY MANAGER due to rash. Now admitted for C3 [...]
--- OUTSIDE RECORDS SUMMARY | 2025-08-16 11:10 | XMS_ITS | Encounter Summary ---
Author Organization [facility] Address [address] [place] [address] Phone Care Team Providers Care Plumbing Mechanic Name Role Phone Yomi Smith DO Unavailable [phone] Jesse Weinstein MD Unavailable Kaelyn Zamora FUNERAL HOME ASSISTANT Unavailable + Polina Conroy TIGHTENER Unavailable [phone] Jeremie Ivey REGIONAL PRODUCTION MANAGER Primary Care Provider + Encounter Details Date Type Department Care Team (Late st Contact Info) Description 08/31/2023 Documentation Center for Lymphoma, Division of Hematologic Oncology, [facility] [place] [address] [facility], 7th [place] [address] Sasha Ventura, RN [address] [facility] [place] [address] [email or web address] Social History Tobacco Use Types Packs/Day Years [...] 10:10 AM EST Blood Draw Laboratory Services, [address], 2nd [place] [address] Jesse Weinstein MD [address] [place] [address] [email or web address] 11/16/2025 11:00 AM EST Office Visit [facility] for Lymphoma, Division of Hematologic Oncology, [address], [address]th [place] [address] Jesse Weinstein MD [address] [place] [address] [email or web address] documented as of this encounter Visit Diagnoses Not on filedocumented in this encounter Additional Health Concerns Infection Onset Date Last Indicated Resolved Time COVID-19 Comment:Per Note Documentation 07/12/2024 07/11/2024 12/16/202 4 10:32 AM EST documented as of this encounter Care Teams Plumbing Mechanic Relationship Specialty Start Date End Date Jeremie Ivey NP [facility] [place] [address] PCP - General Nurse Practitioner 11/26/22 Yomi Smith DO [address] [place] [address], [address] [place] [address] [email or web address] Internal Medicine 08/11/22 Jesse Weinstein MD [address] [place] [address] [email or web address] Primary Oncologist Medical Oncology 08/20/22 Kaelyn Zamora CNP [address] [place] [address] [email or web address] Nurse Practitioner Medical Oncology 08/20/22 Polina Conroy, [address] [address] [email or web address]@[email or web address] Metal Window Screen Assembler Oncology 09/11/22 documented as of this encounter Additional Source Comments The information contained in this document represents components of the legal health record. It is not the complete legal health record.[facility]
--- OUTSIDE RECORDS SUMMARY | 2025-08-16 11:10 | XMS_ITS | Encounter Summary ---
Author Organization [facility] Address [address] [facility] [address] [place] [address] Phone Care Team Providers Care Web Services Architect Name Role Phone Yomi Smith DO Primary Care Provider [phone] Yomi Smith DO Unavailable [phone] Jesse Weinstein MD Unavailable Kaelyn Zamora SKIP TRACER Unavailable + Polina Conroy INSTRUMENTATION FITTER Unavailable [phone] Jeremie Ivey CONDUIT REAMER OPERATOR Primary Care Provider + Encounter Details Date Type Department Care Team (Late st Contact Info) Description 09/23/2022 Procedure Pass [facility] Angio Interventional Radiology [address] [place] [address] Social History Tobacco Use Types Packs/Day Years [...] EST Blood Draw Laboratory Services, [facility] [place] [address] [place] [address], 2nd [place] [address] Jesse Weinstein MD [address] [address] [email or web address] 11/16/2025 11:00 AM EST Office Visit Center for Lymphoma, Division of Hematologic Oncology, [facility] [place] [address] [facility], 7th [place] [address] Jesse Weinstein MD [address] [place] [address] [email or web address] documented as of this encounter Visit Diagnoses Not on filedocumented in this encounter Additional Health Concerns Infection Onset Date Last Indicated Resolved Time COVID-19 Comment:Per Note Documentation 07/12/2024 07/11/2024 10:32 AM EST documented as of this encounter Care Teams Web Services Architect Relationship Specialty Start Date End Date Yomi Smith DO [address] [place] [address], [address] [place] [address] [email or web address] PCP - General Internal Medicine 08/01/22 11/25/22 Jereime Ivey, ALIZA [facility] [place] [address] [place] [address] PCP - General Nurse Practitioner 11/26/22 Yomi Smith DO [address] [place] [address], [address] [place] [address] [email or web address] Internal Medicine 08/11/22 Jesse Weinstein MD [address] [place] [address] [email or web address] Primary Oncologist Medical Oncology 08/20/22 Kaelyn Zamora, FRANCISCO [address] [place] [address] [email or web address] Nurse Practitioner Medical Oncology 08/20/22 Polina Conroy, [address] [address] [email or web address] Residential Program Coordinator Oncology 09/11/22 documented as of this encounter Additional Source Comments The information contained in this document represents components of the legal health record. It is not the complete legal health record.[facility]
--- OUTSIDE RECORDS SUMMARY | 2025-08-16 11:10 | XMS_ITS | Encounter Summary ---
Author Organization [facility] Address [address] [facility] [address] [place] [address] Phone Care Team Providers Care Knifeman Name Role Phone Dano Montes DO Primary Care Provider [phone] Yomi Smith DO Primary Care Provider [phone] Yomi Smith DO Unavailable [phone] Jesse Weinstein MD Unavailable Kaelyn Zamora PATHOLOGY LAB TECHNICIAN Unavailable + Polina Conroy SENIOR FORMULATION SCIENTIST Unavailable [phone] Jeremie Ivey NP Primary Care Provider + Encounter Details Date Type Department Care Team (Late st Contact Info) Description 08/11/2017 Ancillary Orders [facility] [address] [place] [address] Tanvir Trammell DO [address] [place] [address] [facility] [place] [address] Social History Tobacco Use Types Packs/Day Years [...] AM EST Blood Draw [facility] Services, [address], [address] [place] [address] Jesse Weinstein MD [address] [place] [id number] [email or web address] 11/16/2025 11:00 AM EST Office [facility], Division of Hematologic Oncology, [address], [address] [place] [address] Jesse Weinstein MD [address] [place] [address] [email or web address] documented as of this encounter Visit Diagnoses Not on filedocumented in this encounter Additional Health Concerns Infection Onset Date Last Indicated Resolved Time COVID-19 Comment:Per Note Documentation 07/12/2024 07/11/2024 10:32 AM EST documented as of this encounter Care Teams Knifeman Relationship Specialty Start Date End Date Dano Montes DO PCP - General Family Medicine 07/16/17 07/31/22 Yomi Smith DO [address] [place] [address], [address] [place] [address] PCP - General Internal Medicine 08/01/22 11/25/22 Jeremie Ivey NP [address] [place] [address] [place] [address] PCP - General Nurse Practitioner 11/26/22 Yomi Smith DO [address] [place] [address], [address] [place] [address] Internal Medicine 08/11/22 Jesse Weinstein MD [address] [place] [address] [email or web address] Primary Oncologist Medical Oncology 08/20/22 Kaelyn Zamora CNP [address] [place] [address] [email or web address] Nurse Practitioner Medical Oncology 08/20/22 Polina Conroy, SENIOR FORMULATION SCIENTIST [address] [place] [id number] [email or web address] Portrait Painter Oncology 09/11/22 documented as of this encounter Additional Source Comments The information contained in this document represents components of the legal health record. It is not the complete legal health record.[facility]
== END 2025-08-16 10:46 | disposition home or self-care (01) ==
LOC: HO.HMCC 09:54
PROVIDERS: PCP Nurse Practitioner Family; Visit Provider Nurse Practitioner Family
DX: R31.29 Other microscopic hematuria (principal); E78.5 Hyperlipidemia, unspecified